=== PATIENT | female | born 1950 | race American Indian/Alaskan Native ===

== ENCOUNTER 2017-04-19 20:49 | Inpatient (IN) | payer MEDICAID, MEDICARE ==
--- NOTE | 2017-04-19 21:42 | Emergency Department Report ---
HPI - General Time Seen by Provider: 04/19/17 21:06 - HPI HPI: Room 4 The patient is a 66-year-old female presenting with a chief complaint of anemia. Patient was reportedly sent from her long term secondary to her lower H&H (5.8/17.7). The patient is a poor historian. Patient was sent by her primary physician Dr. Rosario, who requested he be called upon patient's arrival. Dr. Rosario states the long term called him reported the patient appeared lethargic. Her labs revealed a low H&H. There is no history of melena or hematemesis from the long term. Location: [see above] Duration: Unknown Quality: Lethargy, anemia Severity: Severe Modifying factors: [see above] Context: [see above] Mode of transportation: [not driving] ED Past Medical Hx - Past Medical History Hx Hypertension: Yes Hx CVA: Yes Hx Diabetes: Yes - Surgical History Additional Surgical History: left amputee. G-tube - Family History Family history: no significant - Social History Smoking Status: Unknown if ever smoked Substance Use Type: None - Medications Home Medications: Home Medications Medication Instructions Recorded Confirmed Last Taken Type Acetaminophen [Acetaminophen ER 650 mg PO Q8HR PRN 04/13/17 04/13/17 Unknown History TAB] Gabapentin [Neurontin] 100 mg PO Q8HR 04/13/17 04/13/17 Unknown History Insulin Detemir [Levemir] 8 unit SUB-Q QHS 04/13/17 04/13/17 Unknown History Insulin Lispro [HumaLOG VIAL] 0 units SQ AC 04/13/17 04/13/17 Unknown History Magnesium Hydroxide [Milk of 30 ml PO Q72HR PRN 04/13/17 04/13/17 Unknown History Magnesia] Meloxicam [Mobic] 7.5 mg PO QDAY 04/13/17 04/13/17 Unknown History Metformin HCl [Glucophage] 500 mg PO BID 04/13/17 04/13/17 Unknown History Metoprolol Xl [Metoprolol 50 mg PO QDAY 04/13/17 04/13/17 Unknown History SUCCINATE ER TAB] Mirtazapine 7.5 mg PO DAILY 04/13/17 04/13/17 Unknown History Pantoprazole [Protonix TAB] 40 mg PO QDAY 04/13/17 04/13/17 Unknown History Sennosides/Docusate Sodium [Senna 2 each PO QHS 04/13/17 04/13/17 Unknown History S Tablet] Sertraline [Zoloft] 50 mg PO QDAY 04/13/17 04/13/17 Unknown History Tamsulosin [Flomax] 0.4 mg PO QDAY 04/13/17 04/13/17 Unknown History Tuberculin Ppd [Aplisol] 0.1 ml ID Q12M 04/13/17 04/13/17 Unknown History amLODIPine [Norvasc] 10 mg PO DAILY 04/13/17 04/13/17 Unknown History cloNIDine [Clonidine] 1 each TD QWEEK 04/13/17 04/13/17 Unknown History traMADol [Ultram 50 MG tab] 50 mg PO Q8H PRN 04/13/17 04/13/17 Unknown History Ciprofloxacin HCl [Ciprofloxacin 250 mg PO BID #5 day 04/16/17 Unknown Rx TAB] oxyCODONE /ACETAMINOPHEN [Percocet 1 tab PO Q6HR PRN #30 tablet 04/16/17 Unknown Rx 5/325 mg] ED Review of Systems ROS: Stated complaint: LOW HEMOGLOBIN Other details as noted in HPI Comment: All other systems reviewed and negative Constitutional: denies: fever Eyes: denies: eye discharge, vision change Physical Exam - Physical Exam Physical Exam: GENERAL: The patient is well-developed well-nourished female lying on stretcher not appearing to be in acute distress. [] HEENT: Normocephalic. Atraumatic. Extraocular motions are intact. Patient has moist mucous membranes. NECK: Supple. Trachea midline CHEST/LUNGS: Clear to auscultation. There is no respiratory distress noted. HEART/CARDIOVASCULAR: Regular. There is no tachycardia. There is no gallop rub or murmur. ABDOMEN: Abdomen is soft, nontender. Patient has normal bowel sounds. There is no abdominal distention. SKIN: There is no rash. There is no edema. There is no diaphoresis. NEURO: The patient is awake but appears slow to respond and is a poor historian. The patient is cooperative. The patient has normal speech MUSCULOSKELETAL: There is no evidence of acute injury. RECTAL: Melena. Guaiac positive ED Course - Consultations Consultation #1: 04/19/17 23:[address] valderrama (gastroenterology)-recommends keeping patient nothing by mouth. Will plan on EGD tomorrow ED Medical Decision Making - Lab Data Result diagrams: 04/19/17 22:08 04/19/17 22:08 Laboratory Tests 04/19/17 04/19/17 04/19/17 22:08 22:08 22:08 WBC 12.9 H RBC 2.11 L Hgb 6.1 L Hct 19.3 L* MCV 92 D MCH 29 MCHC 32 RDW 14.7 Plt Count 345 Lymph % (Auto) 15.8 [place] % (Auto) 5.1 Eos % (Auto) 0.5 Baso % (Auto) 0.6 Lymph # 2.0 [place] # 0.7 Eos # 0.1 Baso # 0.1 Seg Neutrophils % 78.0 H Seg Neutrophils # 10.0 H PT 13.6 INR 1.05 APTT 21.7 L Sodium 142 Potassium 4.8 Chloride 104.2 Carbon Dioxide 23 Anion Gap 20 BUN 65 H Creatinine 4.6 H Estimated GFR 12 BUN/Creatinine Ratio 14.13 Glucose 105 H Calcium 9.0 Blood Type Antibody Screen GIOVANI Antibody Screen Crossmatch 04/19/17 22:14 WBC RBC Hgb Hct MCV MCH MCHC RDW Plt Count Lymph % (Auto) [place] % (Auto) Eos % (Auto) Baso % (Auto) Lymph # [place] # Eos # Baso # Seg Neutrophils % Seg Neutrophils # PT INR APTT Sodium Potassium Chloride Carbon Dioxide Anion Gap BUN Creatinine Estimated GFR BUN/Creatinine Ratio Glucose Calcium Blood Type O POSITIVE Antibody Screen TNR GIOVANI Antibody Screen Negative Crossmatch See Detail - EKG Data -: EKG Interpreted by Me EKG shows normal: sinus rhythm Rate: normal - EKG Data When compared to previous EKG there are: no significant change Interpretation: unchanged when compared t (04/13/2017), nonspecific ST-T wave juwan - Differential Diagnosis GI bleed, hemolysis, Critical care attestation.: If time is entered above; I have spent that time in minutes in the direct care of this critically ill patient, excluding procedure time. ED Disposition Clinical Impression: GI bleed, Anemia, Chronic renal insufficiency Disposition: OP ADMIT IP TO THIS HOSP Is pt being admited?: Yes Does the pt Need Aspirin: No Condition: Serious Time of Disposition: 23:24 (hospitalist paged)
[2017-04-19 22:38] LABS: Basophils % (Auto) 0.6 % (0.0-1.8); Eosinophils % (Auto) 0.5 % (0.0-4.3); Hemoglobin 6.1 gm/dl (10.1-14.3); Mean Corpuscular HGB Conc 32 % (30-34); Mean Corpuscular Hemoglobin 29 pg (28-32); Mean Corpuscular Volume 92 fl (79-97); Red Blood Count 2.11 M/mm3 (3.65-5.03); Red Cell Distribution Width 14.7 % (13.2-15.2); White Blood Count 12.9 K/mm3 (4.5-11.0)
[2017-04-19 22:41] LABS: Platelet Count 345 K/mm3 (140-440)
[2017-04-19 22:43] LABS: Hematocrit 19.3 % (30.3-42.9)
[2017-04-19 22:46] LABS: BUN/Creatinine Ratio 14.13; Chloride 104.2 mmol/L (98-107); Potassium 4.8 mmol/L (3.6-5.0)
[2017-04-19 22:50] LABS: INR 1.05 (0.87-1.13)
[2017-04-19 22:51] LABS: Partial Thromboplastin Time 21.7 Sec. (24.2-36.6)
[2017-04-19] MEDS ORDERED: NACL 0.9% 500 ML 500 ML IV ONE (22:53)
[2017-04-19] MEDS ORDERED: PROTONIX IV ONE (23:14)
[2017-04-19] MEDS ORDERED: DULCOLAX PR PRN (23:57)
[2017-04-19] MEDS ORDERED: ZOFRAN IV PRN (23:57)
--- NOTE | 2017-04-19 23:57 | History and Physical Report ---
History of Present Illness Date of examination: 04/19/17 History of present illness: [place] 6-year-old woman with a history of diabetes, peripheral vascular disease, chronic kidney disease, CVA with hemiparesis was sent to the emergency room from the longterm for abnormal hemoglobin. Patient is very poor historian, very difficult to obtain history. Review of system unobtainable PAST SURGICAL HISTORY: Left AKA SOCIAL HISTORY: senior living resident, no alcohol, tobacco, drugs FAMILY HISTORY: Hypertension Medications and Allergies Allergies Allergy/AdvReac Type Severity Reaction Status Date / Time guaifenesin [From Robitussin] Allergy Unknown Verified 04/19/17 21:22 Home Medications Medication Instructions Recorded Confirmed Last Taken Type Acetaminophen [Acetaminophen ER 650 mg PO Q8HR PRN 04/13/17 04/21/17 Unknown History TAB] Gabapentin [Neurontin] 100 mg PO Q8HR 04/13/17 04/21/17 Unknown History Insulin Detemir [Levemir] 8 unit SUB-Q QHS 04/13/17 04/21/17 Unknown History Insulin Lispro [HumaLOG VIAL] 0 units SQ AC 04/13/17 04/21/17 Unknown History Magnesium Hydroxide [Milk of 30 ml PO Q72HR PRN 04/13/17 04/21/17 Unknown History Magnesia] Meloxicam [Mobic] 7.5 mg PO QDAY 04/13/17 04/21/17 Unknown History Metformin HCl [Glucophage] 500 mg PO BID 04/13/17 04/21/17 Unknown History Metoprolol Xl [Metoprolol 50 mg PO QDAY 04/13/17 04/21/17 Unknown History SUCCINATE ER TAB] Mirtazapine 7.5 mg PO DAILY 04/13/17 04/21/17 Unknown History Pantoprazole [Protonix TAB] 40 mg PO QDAY 04/13/17 04/21/17 Unknown History Sennosides/Docusate Sodium [Senna 2 each PO QHS 04/13/17 04/21/17 Unknown History S Tablet] Sertraline [Zoloft] 50 mg PO QDAY 04/13/17 04/21/17 Unknown History Tamsulosin [Flomax] 0.4 mg PO QDAY 04/13/17 04/21/17 Unknown History Tuberculin Ppd [Aplisol] 0.1 ml ID Q12M 04/13/17 04/21/17 Unknown History amLODIPine [Norvasc] 10 mg PO DAILY 04/13/17 04/21/17 Unknown History cloNIDine [Clonidine] 1 each TD QWEEK 04/13/17 04/21/17 Unknown History traMADol [Ultram 50 MG tab] 50 mg PO Q8H PRN 04/13/17 04/21/17 Unknown History Ciprofloxacin HCl [Ciprofloxacin 250 mg PO BID #5 day 04/16/17 04/21/17 Unknown Rx TAB] oxyCODONE /ACETAMINOPHEN [Percocet 1 tab PO Q6HR PRN #30 tablet 04/16/17 Unknown Rx 5/325 mg] Exam - Physical Exam Narrative exam: Gen. appearance: Patient lying in bed, no apparent distress HEENT: Normocephalic, atraumatic, pupils equally round and reactive to light, extraocular movement intact, and no sclericterus,. No JVD or thyromegaly or nodule,neck supple, no carotid bruit ,mucous membranes moist, no exudate or erythema Heart: S1, S2, regular rate and rhythm Lungs: Clear to auscultation bilaterally, breathing comfortable Abdomen: Positive bowel sounds, nontender, nondistended, no organomegaly Extremity: No edema, cyanosis, clubbing Skin: No rash, nodules, warm, dry Neuro: , cranial nerves difficult to assess, speech is fluent but slow Rectal heme-positive, black stool - Constitutional Vitals: Temp Pulse Resp BP Pulse Ox 100.0 F H 88 11 L 169/88 99 04/19/17 21:29 04/19/17 22:00 04/19/17 22:00 04/19/17 22:00 04/19/17 22:00 Results - Labs CBC & Chem 7: 04/21/17 02:00 04/21/17 02:00 Labs: Abnormal lab results 04/19/17 04/19/17 04/19/17 Range/Units 22:08 22:08 22:08 WBC 12.9 H (4.5-11.0) K/mm3 RBC 2.11 L (3.65-5.03) M/mm3 Hgb 6.1 L (10.1-14.3) gm/dl Hct 19.3 L* (30.3-42.9) % Seg Neutrophils % 78.0 H (40.0-70.0) % Seg Neutrophils # 10.0 H (1.8-7.7) K/mm3 APTT 21.7 L (24.2-36.6) Sec. BUN 65 H (7-17) mg/dL Creatinine 4.6 H (0.7-1.2) mg/dL Glucose 105 H (65-100) mg/dL Crossmatch 04/19/17 Range/Units 22:14 WBC (4.5-11.0) K/mm3 RBC (3.65-5.03) M/mm3 Hgb (10.1-14.3) gm/dl Hct (30.3-42.9) % Seg Neutrophils % (40.0-70.0) % Seg Neutrophils # (1.8-7.7) K/mm3 APTT (24.2-36.6) Sec. BUN (7-17) mg/dL Creatinine (0.7-1.2) mg/dL Glucose (65-100) mg/dL Crossmatch See Detail Assessment and Plan Melena Anemia secondary to blood loss Diabetes type 2 Peripheral vascular disease Chronic kidney disease History of CVA Admits medicine Start IV fluid, IV Protonix, consult GI Check serial hemoglobin, fingersticks initiate insulin sliding scale Start DVT prophylaxis with SCD
[2017-04-20 00:35] LABS: Hematocrit 18.5 % (30.3-42.9); Hemoglobin 5.9 gm/dl (10.1-14.3)
[2017-04-20] MEDS ORDERED: APRESOLINE ONE (01:52)
[2017-04-20] MEDS ORDERED: APRESOLINE IV ONE (01:56)
[2017-04-20] MEDS ORDERED: NACL 0.9% 1000 ML 1,000 ML IV SCH (02:00)
[2017-04-20] MEDS ORDERED: NITRO-BID 2% TP ONE (04:37)
[2017-04-20] MEDS: APRESOLINE IV PRN ×3 (04:56→17:32)
[2017-04-20 07:38] LABS: Basophils % (Auto) 0.5 % (0.0-1.8); Eosinophils % (Auto) 1.4 % (0.0-4.3); Hematocrit 30.2 % (30.3-42.9); Hemoglobin 9.9 gm/dl (10.1-14.3); Mean Corpuscular HGB Conc 33 % (30-34); Mean Corpuscular Hemoglobin 29 pg (28-32); Mean Corpuscular Volume 88 fl (79-97); Platelet Count 351 K/mm3 (140-440); Red Blood Count 3.45 M/mm3 (3.65-5.03); Red Cell Distribution Width 14.9 % (13.2-15.2); White Blood Count 17.2 K/mm3 (4.5-11.0)
[2017-04-20 07:42] LABS: BUN/Creatinine Ratio 13.55; Calcium 8.8 mg/dL (8.4-10.2); Chloride 109.8 mmol/L (98-107); Potassium 4.3 mmol/L (3.6-5.0)
--- NOTE | 2017-04-20 08:17 | Admit Criteria Form ---
Admission Criteria Documentation: HEMATOLOGY GRG Clinical Indications for Admission to Inpatient Care (Place 'X' for any and all applicable criteria): Hospital admission is needed for appropriate care of the patient because of ANY ONE of the following: [ X]I. Severe anemia indicated by ANY ONE of the following (1)(2) [ ]a) Altered mental status [ ]b) Syncope [X ]c) Other findings suggesting inadequate perfusion [ ]d) Chest pain [ ]e) Exertional dyspnea [ ]f) Treatment with transfusion or volume replacement is ineffective at resolving ANY ONE of the following [A]: [ ]i) Tachycardia for age [ ]ii) Orthostatic vital sign changes as indicated by ANY ONE of the following (3) [ ]1) Fall in SBP of 20 mm Hg or more 1 to 3 minutes after patient sits or stands from recumbent position [ ]2) Fall in DBP of 10 mm Hg or more 1 to 3 minutes after patient sits or stands from recumbent position [ ]II. High-risk febrile neutropenia [B] as indicated by ANY ONE of the following(4)(5) [ ]a) Hemodynamic instability [ ]b) Hypoxemia [ ]c) Tachypnea [ ]d) Altered mental status [ ]e) New onset abdominal pain [ ]f) New onset vomiting or diarrhea [ ]g) Pneumonia [ ]h) Profound neutropenia [C] anticipated to extend for more than 7 days [ ]i) Oral or gastrointestinal mucositis that interferes with swallowing or causes severe diarrhea [ ]j) Evidence of significant focal infection (eg, cellulitis, central line or catheter infection, perirectal abscess) [ ]k) Leukemia or lymphoma induction therapy [ ]l) Bone marrow transplant patient [ ]m) Renal insufficiency (eg, GFR of less than 30 mL/min/1.73m2 (0.5 mL/sec/1.73m2) [ ]n) Severe liver dysfunction (transaminase levels greater than 5 times normal) [ ]o) Platelet count less than 50,000/mm3 (50 x109/L)(6) [ ]p) [employer] for Supportive Care in Cancer (MASCC) Risk Index score of < 21 [D] [ ]III. High-risk low platelet count as indicated by ANY ONE of the following(8) (9) [ ]a) Severe or life-threatening bleeding (eg, intracranial, major gastrointestinal, or extensive mucosal bleeding), with any reduced platelet count [ ]b) Platelet count less than 20,000/mm3 (20 x109/L) with any active bleeding [ ]c) Platelet count less than 10,000/mm3 (10 x109/L) with minor purpura or petechiae [ ]d) Platelet count less than 5000/mm3 (5 x109/L) [ ]e) Low platelet count with hemolytic anemia [ ]IV.Active hemolysis with high-risk findings, including ANY ONE of the following(2)(10)(11) [ ]a) Hematocrit less than 25% (0.25) [ ]b) Rapidly progressing anemia [ ]c) Thrombocytopenia(12)(13) [ ]d) Evidence of thrombosis or new renal insufficiency [ ]V. Bleeding disorder with high-risk features (eg, hemophilia, coagulopathy) as indicated by ANY ONE of the following (2)(14)(15) [ ]a) Central nervous system bleeding [ ]b) Retroperitoneal bleeding [ ]c) Retropharyngeal bleeding [ ]d) Gastrointestinal bleeding (22) [ ]e) Purpura [ ]f) Disseminated intravascular coagulation(23) [ ]g) Major trauma [ ]h) Deep laceration [ ]i) Head trauma [ ]j) Any trauma with internal hematoma (eg, retroperitoneal, ocular) [ ]k) Failed outpatient management [ ]. Severe over-anticoagulation or high-risk situation as indicated by ANY ONE of the following(24)(25) [ ]a) Active bleeding [ ]b) International normalized ratio 5 or greater and rapid reversal needed [ ]c) International normalized ratio 9 or greater [ ]VII. Congenital immunodeficiency states with severe morbidity as indicated by ANY ONE of the following(26)(27) [ ]a) Severe infection [ ]b) Bone marrow transplant needed (Also use Medical Oncology GRG) [ ]VIII. Hyperviscosity syndrome with high-risk indicators indicated by ANY ONE of the following (2)(28)(29)(30)(31) [ ]a) Polycythemia vera with hematocrit greater than 60% (0.60) [ ]b) Elevated platelet count associated with thrombosis, bleeding, or life-threatening organ dysfunction [ ]c) Severe signs or symptoms from elevated red cell, white cell, or protein levels, including ANY ONE of the following: [ ]i) Mental status change [ ]ii) Dyspnea [ ]iii) Chest x-ray infiltrate [ ]iv) Visual changes [ ]v) Retinal abnormalities [ ]vi) Neuromuscular symptoms [ ]vii) Suspected ischemia or thrombosis [ ]viii) Bleeding [ ]IX. Methemoglobinemia greater than 15% (0.15) or severe symptoms persist after emergency treatment (32)(33) [ ]X. Spleen trauma with blood loss or other need for acute (medical) treatment (34) [ ]XI. Hematology condition and ALL of the following: [ ]a) Symptom or finding for which emergency and observation care have failed or are not considered appropriate (Also use General Criteria: Observation Care as appropriate) [ ]b) Presence of ANY ONE of the following: [ ]i) A General Admission Criteria [ ]ii) A Pediatric General Admission Criteria The original [facility] [employer] content created by [facility] has been revised. The portions of the content which have been revised are identified through the use of italic text or in bold, and [facility] has neither reviewed nor approved the modified material. All other unmodified content is copyright [facility]. Please see references footnoted in the original [facility] edition 2016 Admission Criteria Met: Yes
--- NOTE | 2017-04-20 08:48 | Progress Note ---
Assessment and Plan Assessment and plan: Patient is a 66-year-old woman with a history of diabetes, peripheral vascular disease, chronic kidney disease, CVA with hemiparesis was [facility] from the [facility] for abnormal hemoglobin. Patient is very poor historian, very difficult to obtain history. Review of system unobtainable * Symptomatic Anemia * GI bleed with melana * Hypertensive urgency, ?Rebound * Diabetes type 2 * PVD * Acute Kidney injury on chronic kidney disease, possible secondary to ATN. POA * Hx of CVA plan: * Supportive care * Decrease IVF to 75cc/hr * Good response with transfusion of PRBC. monitor H.H. Gi consulted. * Hematology consult noted. * Nephrology consult, check renal us, urinalysis. avoid nephrotoxic medications , repeat renal stuides in am * Blood pressure control will start patient on clonidine patch and hydralazine IV when necessary once okay with GI, patient can start By Mouth Medications. * cont serial hemoglobin, fingersticks initiate insulin sliding scale * DVT prophylaxis with SC * Based on findings on his H&H remains stable patient can be discharged in a.m. * Plan of care discussed with the patient in detail History Interval history: Patient seen and examined this morning, in no acute distress. Denies any chest pain, nausea vomiting or diarrhea. no adverse events reported overnight. Hospitalist Physical - Physical exam Narrative exam: VITAL SIGNS: Reviewed. GENERAL: The patient appeared well nourished and normally developed. Vital signs as documented. HEAD: No signs of head trauma. EYES: Pupils are equal. Extraocular motions intact. EARS: Hearing grossly intact. MOUTH: Oropharynx is normal. NECK: No adenopathy, no JVD. CHEST: Chest with clear breath sounds bilaterally. No wheezes, rales, or rhonchi. CARDIAC: Regular rate and rhythm. S1 and S2, without murmurs, gallops, or rubs. VASCULAR: No Edema. Peripheral pulses normal and equal in all extremities. ABDOMEN: Soft, without detectable tenderness. No sign of distention. No rebound or guarding, and no masses palpated. Bowel Sounds normal. MUSCULOSKELETAL: Good range of motion of all major joints. Extremities without clubbing, cyanosis or edema. NEUROLOGIC EXAM: Alert and oriented x 3. No focal sensory or strength deficits. Speech normal. Follows commands. PSYCHIATRIC: Mood normal. SKIN: No rash or lesions. - Constitutional Vitals: Temp Pulse Resp BP Pulse Ox 98.2 F 97 H 18 174/84 100 04/20/17 07:51 04/20/17 07:51 04/20/17 07:51 04/20/17 07:51 04/20/17 07:51 Results - Labs CBC & Chem 7: 04/20/17 06:37 04/20/17 06:37 Labs: Laboratory Last Values WBC 17.2 K/mm3 (4.5-11.0) H 04/20/17 06:37 RBC 3.45 M/mm3 (3.65-5.03) L 04/20/17 06:37 Hgb 9.9 gm/dl (10.1-14.3) L D 04/20/17 06:37 Hct 30.2 % (30.3-42.9) L D 04/20/17 06:37 MCV 88 fl (79-97) D 04/20/17 06:37 MCH 29 pg (28-32) 04/20/17 06:37 MCHC 33 % (30-34) 04/20/17 06:37 RDW 14.9 % (13.2-15.2) 04/20/17 06:37 Plt Count 351 K/mm3 (140-440) 04/20/17 06:37 Lymph % (Auto) 13.2 % (13.4-35.0) L 04/20/17 06:37 [place] % (Auto) 6.5 % (0.0-7.3) 04/20/17 06:37 Eos % (Auto) 1.4 % (0.0-4.3) 04/20/17 06:37 Baso % (Auto) 0.5 % (0.0-1.8) 04/20/17 06:37 Lymph # 2.3 K/mm3 (1.2-5.4) 04/20/17 06:37 [place] # 1.1 K/mm3 (0.0-0.8) H 04/20/17 06:37 Eos # 0.2 K/mm3 (0.0-0.4) 04/20/17 06:37 Baso # 0.1 K/mm3 (0.0-0.1) 04/20/17 06:37 Seg Neutrophils % 78.4 % (40.0-70.0) H 04/20/17 06:37 Seg Neutrophils # 13.4 K/mm3 (1.8-7.7) H 04/20/17 06:37 PT 13.6 Sec. (12.2-14.9) 04/19/17 22:08 INR 1.05 (0.87-1.13) 04/19/17 22:08 APTT 21.7 Sec. (24.2-36.6) L 04/19/17 22:08 Sodium 146 mmol/L (137-145) H 04/20/17 06:37 Potassium 4.3 mmol/L (3.6-5.0) 04/20/17 06:37 Chloride 109.8 mmol/L (98-107) H 04/20/17 06:37 Carbon Dioxide 22 mmol/L (22-30) 04/20/17 06:37 Anion Gap 19 mmol/L 04/20/17 06:37 BUN 61 mg/dL (7-17) H 04/20/17 06:37 Creatinine 4.5 mg/dL (0.7-1.2) H 04/20/17 06:37 Estimated GFR 12 ml/min 04/20/17 06:37 BUN/Creatinine Ratio 13.55 % 04/20/17 06:37 Glucose 105 mg/dL (65-100) H 04/20/17 06:37 Calcium 8.8 mg/dL (8.4-10.2) 04/20/17 06:37 Blood Type O POSITIVE 04/19/17 22:14 Antibody Screen TNR 04/19/17 22:14 GIOVANI Antibody Screen Negative 04/19/17 22:14 Crossmatch See Detail 04/19/17 22:14
--- NOTE | 2017-04-20 09:22 | Gastroenterology Consultation ---
History of Present Illness - Reason for Consult Consult date: 04/20/17 GI bleed Requesting physician: QUINCY BRYAN - History of Present Illness Patient is a 66 y/o female, who is a [place] [facility] resident, who was brought to the ER yesterday for abnormal HGB. PMH significant for DM, PVD, CKD, HTN, and CVA with hemiparesis. She is a poor historian. Speech is slow but clear. She was resting in bed this morning, without acute distress. She admits to epigastric pain, but denies CP, SOB, dizziness, N/V, hematemesis, dysphagia, hematochezia or wt loss. BM last night x 1 with melena per nursing and stool hemoccult positive in ER. Patient reports no previous EGD or Colonoscopy. Noted to be on Meloxicam at home. Past History Past Medical History: diabetes, hypertension, PVD, stroke (L sided hemiparesis) Past Surgical History: cholecystectomy, Other (Left AKA) Social history: other ([place] [facility] resident). denies: smoking (former smoker) , alcohol abuse Medications and Allergies Allergies Allergy/AdvReac Type Severity Reaction Status Date / Time guaifenesin [From Robitussin] Allergy Unknown Verified 04/19/17 21:22 Home Medications Medication Instructions Recorded Confirmed Last Taken Type Acetaminophen [Acetaminophen ER 650 mg PO Q8HR PRN 04/13/17 04/13/17 Unknown History TAB] Gabapentin [Neurontin] 100 mg PO Q8HR 04/13/17 04/13/17 Unknown History Insulin Detemir [Levemir] 8 unit SUB-Q QHS 04/13/17 04/13/17 Unknown History Insulin Lispro [HumaLOG VIAL] 0 units SQ AC 04/13/17 04/13/17 Unknown History Magnesium Hydroxide [Milk of 30 ml PO Q72HR PRN 04/13/17 04/13/17 Unknown History Magnesia] Meloxicam [Mobic] 7.5 mg PO QDAY 04/13/17 04/13/17 Unknown History Metformin HCl [Glucophage] 500 mg PO BID 04/13/17 04/13/17 Unknown History Metoprolol Xl [Metoprolol 50 mg PO QDAY 04/13/17 04/13/17 Unknown History SUCCINATE ER TAB] Mirtazapine 7.5 mg PO DAILY 04/13/17 04/13/17 Unknown History Pantoprazole [Protonix TAB] 40 mg PO QDAY 04/13/17 04/13/17 Unknown History Sennosides/Docusate Sodium [Senna 2 each PO QHS 04/13/17 04/13/17 Unknown History S Tablet] Sertraline [Zoloft] 50 mg PO QDAY 04/13/17 04/13/17 Unknown History Tamsulosin [Flomax] 0.4 mg PO QDAY 04/13/17 04/13/17 Unknown History Tuberculin Ppd [Aplisol] 0.1 ml ID Q12M 04/13/17 04/13/17 Unknown History amLODIPine [Norvasc] 10 mg PO DAILY 04/13/17 04/13/17 Unknown History cloNIDine [Clonidine] 1 each TD QWEEK 04/13/17 04/13/17 Unknown History traMADol [Ultram 50 MG tab] 50 mg PO Q8H PRN 04/13/17 04/13/17 Unknown History Ciprofloxacin HCl [Ciprofloxacin 250 mg PO BID #5 day 04/16/17 Unknown Rx TAB] oxyCODONE /ACETAMINOPHEN [Percocet 1 tab PO Q6HR PRN #30 tablet 04/16/17 Unknown Rx 5/325 mg] Active Meds: Active Medications Bisacodyl (Dulcolax) 10 mg DE QDAY PRN PRN Reason: Constipation unrelieved by MOM Clonidine HCl (Catapres-Tts Patch) 0.1 mg TD QWEEK REYES Hydralazine HCl (Apresoline) 10 mg IV Q4HR PRN PRN Reason: Hypertension Last Admin: 04/20/17 04:56 Dose: 10 mg Sodium Chloride (Nacl 0.9% 1000 Ml) 1,000 mls @ 75 mls/hr IV DIRECT REYES Ondansetron HCl (Zofran) 4 mg IV Q8H PRN PRN Reason: N/V unrelieved by Reglan Pantoprazole Sodium (Protonix) 40 mg IV QDAY REYES Review of Systems - Review of Systems All systems: negative Gastrointestinal: abdominal pain (epigastric), melena Exam - Constitutional Vital Signs: Temp Pulse Resp BP Pulse Ox 98.2 F 97 H 18 174/84 100 04/20/17 07:51 04/20/17 07:51 04/20/17 07:51 04/20/17 07:51 04/20/17 07:51 General appearance: no acute distress - EENT Eyes: PERRL, EOM intact ENT: hearing intact - Neck Neck: supple - Respiratory Respiratory: bilateral: CTA - Cardiovascular Rhythm: regular Heart Sounds: Present: S1 & S2 Extremities: No edema Extremity abnormal: other (Left sided hemiparesis, Left AKA) - Gastrointestinal General gastrointestinal: Present: soft, tender (epigastric), non-distended, normal bowel sounds - Integumentary Integumentary: Present: warm, dry - Neurologic Neurological: oriented to person, oriented to place, left side weakness, other ( speech slow) - Psychiatric Psychiatric: appropriate mood/affect, cooperative - Labs CBC & Chem 7: 04/20/17 06:37 04/20/17 06:37 Lab Results: Laboratory Results - last 24 hr 04/20/17 04/20/17 04/20/17 00:12 06:37 06:37 WBC 17.2 H RBC 3.45 L Hgb 5.9 L* 9.9 L D Hct 18.5 L* 30.2 L D MCV 88 D MCH 29 MCHC 33 RDW 14.9 Plt Count 351 Lymph % (Auto) 13.2 L [place] % (Auto) 6.5 Eos % (Auto) 1.4 Baso % (Auto) 0.5 Lymph # 2.3 [place] # 1.1 H Eos # 0.2 Baso # 0.1 Seg Neutrophils % 78.4 H Seg Neutrophils # 13.4 H Sodium 146 H Potassium 4.3 Chloride 109.8 H Carbon Dioxide 22 Anion Gap 19 BUN 61 H Creatinine 4.5 H Estimated GFR 12 BUN/Creatinine Ratio 13.55 Glucose 105 H Calcium 8.8 Assessment and Plan 1. GI bleed 2. melena -HBG increased appropriately with transfusion from 6.1 to now 9.9 -continue to monitor H&H -hold any blood thinning medications -continue PPI -keep NPO -will schedule EGD for today -will follow
[2017-04-20] MEDS: PROTONIX IV SCH (09:35)
[2017-04-20] MEDS ORDERED: CATAPRES-TTS PATCH TD SCH (10:00)
--- NOTE | 2017-04-20 11:09 | Ultrasound Report ---
ULTRASOUND RENAL INDICATION: KISHA. COMPARISON: 04/14/2017. FINDINGS: Renal sonography again demonstrates mild increased renal cortical echogenicity. Grossly preserved contours. No hydronephrosis. RIGHT KIDNEY measures 11.6 x 5.5 x 5.7 cm with cortical thickness of 2.3 cm. A 2.2 x 1.7 cm interpolar cyst again noted. LEFT KIDNEY estimated at 9 x 6.2 x 5.1 cm with cortical thickness of 1.8 cm. URINARY BLADDER grossly within normal limits. CONCLUSION: Mild underlying medical renal disease and right renal cyst again noted. Indication for this short-term repeat exam uncertain at this time. Please correlate. Thank you for the opportunity to participate in this patient's care.
[2017-04-20] MEDS ORDERED: XYLOCAINE MPF 2% ONE (11:30)
[2017-04-20] MEDS ORDERED: WATER FOR IRRIG STERILE IR ONE (11:36)
[2017-04-20] MEDS ORDERED: NACL 0.9% 1000 ML 1,000 ML ONE (11:36)
--- NOTE | 2017-04-20 11:54 | Anesthesia Consultation ---
Anesthesia Consult and Med Hx Date of service: 04/20/17 - Airway Anesthetic Teeth Evaluation: Poor (missing teeth on the bottom), Dentures (upper ) ROM Head & Neck: Adequate Mental/Hyoid Distance: Adequate Mallampati Class: Class II Intubation Access Assessment: Probably Good - Pre-Operative Health Status ASA Pre-Surgery Classification: ASA4 Proposed Anesthetic Plan: MAC - Pulmonary Hx Smoking: Yes Hx Asthma: No COPD: No Hx Pneumonia: No - Cardiovascular System Hx Hypertension: Yes - Central Nervous System CVA: Yes (quadraparesis) Hx Psychiatric Problems: Yes (oriented x 1, dementia) - Gastrointestinal Hx Gastroesophageal Reflux Disease: Yes (PEG tube in situ, GI bleed) - Endocrine Hx Renal Disease: Yes (kidney insufficiency) Hx End Stage Renal Disease: No - Hematic Hx Anemia: Yes (recieved 2 units of blood) - Other Systems Hx Cancer: No
--- NOTE | 2017-04-20 11:56 | Anesthesia Day of Surgery ---
Anesthesia Day of Surgery - Day of Surgery Patient Examined: Yes Patient H&P Reviewed: Yes Patient is NPO: Yes
[2017-04-20] MEDS ORDERED: DIPRIVAN 10 MG/ML IV ONE (12:21)
--- NOTE | 2017-04-20 12:42 | Operative Report ---
Operative Report Operative Report: Date of procedure: 04/20/2017 Procedure: Esophagogastroduodenoscopy Preprocedure diagnosis: History of melena Post procedure diagnosis: Normal-appearing upper digestive tract Endoscopist: Dr. Bateman Anesthesia: Monitored anesthesia care per anesthesia department Medications: Propofol per anesthesia Estimated blood loss: 0 After careful discussion of the nature and purpose of the procedure as well as details the technique risks benefits and alternatives consent was obtained. The patient was placed in the left lateral decubitus position and medicated per anesthesia. The tip of the Savision EQ 570 video scope was passed per orum under direct vision into the esophagus and advanced into the stomach and descending duodenum. The descending duodenum the duodenal bulb and pylorus were symmetrical and normal. The scope was withdrawn into the stomach and the stomach then gently insufflated with air. The antrum was normal. The stomach was further insufflated and the scope was then retroflexed and partially withdrawn. The cardia, fundus, and body of the stomach were within normal limits and easily distensible.The scope was then withdrawn in the forward position. The esophagogastric junction was at 38 cm. The esophageal body was normal throughout. The procedure was was well tolerated and the patient was observed in recovery. Impressions: Normal-appearing upper digestive tract. Plan: Further outpatient evaluation as the patient does not appear to be actively bleeding. Consideration of colonoscopy and/or pill camera study. Electronically signed: Doc Bateman MD
[2017-04-20] MEDS: NACL 0.9% 1000 ML 1,000 ML IV SCH (14:26)
--- NOTE | 2017-04-20 15:18 | Post Anesthesia Evaluation ---
- Post Anesthesia Evaluation Patient Participated: Yes Airway Patent: Yes Stable Respiratory Function: Yes Nausea/Vomiting: No Temp > 96.8F: Yes Pain Manageable: Yes Adequeate Hydration: Yes Anesthesia Complications: No Block Receding Appropriately: Not Applicable Patient on Ventilator: No
--- NOTE | 2017-04-20 16:40 | Consultation ---
History of Present Illness - Reason for Consult Consult date: 04/20/17 - History of Present Illness pt was seen and examined. 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 denies: smoking (former smoker) , alcohol abuse Medications and Allergies Allergies Allergy/AdvReac Type Severity Reaction Status Date / Time guaifenesin [From Robitussin] Allergy Unknown Verified 04/19/17 21:22 Home Medications Medication Instructions Recorded Confirmed Last Taken Type Acetaminophen [Acetaminophen ER 650 mg PO Q8HR PRN 04/13/17 04/13/17 Unknown History TAB] Gabapentin [Neurontin] 100 mg PO Q8HR 04/13/17 04/13/17 Unknown History Insulin Detemir [Levemir] 8 unit SUB-Q QHS 04/13/17 04/13/17 Unknown History Insulin Lispro [HumaLOG VIAL] 0 units SQ AC 04/13/17 04/13/17 Unknown History Magnesium Hydroxide [Milk of 30 ml PO Q72HR PRN 04/13/17 04/13/17 Unknown History Magnesia] Meloxicam [Mobic] 7.5 mg PO QDAY 04/13/17 04/13/17 Unknown History Metformin HCl [Glucophage] 500 mg PO BID 04/13/17 04/13/17 Unknown History Metoprolol Xl [Metoprolol 50 mg PO QDAY 04/13/17 04/13/17 Unknown History SUCCINATE ER TAB] Mirtazapine 7.5 mg PO DAILY 04/13/17 04/13/17 Unknown History Pantoprazole [Protonix TAB] 40 mg PO QDAY 04/13/17 04/13/17 Unknown History Sennosides/Docusate Sodium [Senna 2 each PO QHS 04/13/17 04/13/17 Unknown History S Tablet] Sertraline [Zoloft] 50 mg PO QDAY 04/13/17 04/13/17 Unknown History Tamsulosin [Flomax] 0.4 mg PO QDAY 04/13/17 04/13/17 Unknown History Tuberculin Ppd [Aplisol] 0.1 ml ID Q12M 04/13/17 04/13/17 Unknown History amLODIPine [Norvasc] 10 mg PO DAILY 04/13/17 04/13/17 Unknown History cloNIDine [Clonidine] 1 each TD QWEEK 04/13/17 04/13/17 Unknown History traMADol [Ultram 50 MG tab] 50 mg PO Q8H PRN 04/13/17 04/13/17 Unknown History Ciprofloxacin HCl [Ciprofloxacin 250 mg PO BID #5 day 04/16/17 Unknown Rx TAB] oxyCODONE /ACETAMINOPHEN [Percocet 1 tab PO Q6HR PRN #30 tablet 04/16/17 Unknown Rx 5/325 mg] Active Meds: Active Medications Bisacodyl (Dulcolax) [address] QDAY PRN PRN Reason: Constipation unrelieved by MOM Clonidine HCl (Catapres-Tts Patch) 0.1 mg TD We [facility] Last Admin: 04/20/17 14:27 Dose: 0.1 mg Hydralazine HCl (Apresoline) 10 mg IV Q4HR PRN PRN Reason: Hypertension Last Admin: 04/20/17 09:53 Dose: 10 mg Sodium Chloride (Nacl 0.9% 1000 Ml) 1,000 mls @ 75 mls/hr IV DIRECT [facility] Last Admin: 04/20/17 14:26 Dose: 75 mls/hr Ondansetron HCl (Zofran) 4 mg IV Q8H PRN PRN Reason: N/V unrelieved by Reglan Pantoprazole Sodium (Protonix) 40 mg IV QDAY [facility] Last Admin: 04/20/17 09:35 Dose: 40 mg Exam - Constitutional Vitals: Temp Pulse Resp BP Pulse Ox 98.5 F 87 12 136/65 97 04/20/17 12:35 04/20/17 13:00 04/20/17 13:00 04/20/17 13:00 04/20/17 13:00 Results - Labs CBC & Chem 7: 04/20/17 06:37 04/20/17 06:37 Labs: Abnormal lab results 04/20/17 04/20/17 04/20/17 Range/Units 00:12 06:37 06:37 WBC 17.2 H (4.5-11.0) K/mm3 RBC 3.45 L (3.65-5.03) M/mm3 Hgb 5.9 L* 9.9 L D (10.1-14.3) gm/dl Hct 18.5 L* 30.2 L D (30.3-42.9) % Lymph % (Auto) 13.2 L (13.4-35.0) % [place] # 1.1 H (0.0-0.8) K/mm3 Seg Neutrophils % 78.4 H (40.0-70.0) % Seg Neutrophils # 13.4 H (1.8-7.7) K/mm3 Sodium 146 H (137-145) mmol/L Chloride 109.8 H (98-107) mmol/L BUN 61 H (7-17) mg/dL Creatinine 4.5 H (0.7-1.2) mg/dL Glucose 105 H (65-100) mg/dL POC Glucose (70-105) 04/20/17 Range/Units 12:04 WBC (4.5-11.0) K/mm3 RBC (3.65-5.03) M/mm3 Hgb (10.1-14.3) gm/dl Hct (30.3-42.9) % Lymph % (Auto) (13.4-35.0) % [place] # (0.0-0.8) K/mm3 Seg Neutrophils % (40.0-70.0) % Seg Neutrophils # (1.8-7.7) K/mm3 Sodium (137-145) mmol/L Chloride (98-107) mmol/L BUN (7-17) mg/dL Creatinine (0.7-1.2) mg/dL Glucose (65-100) mg/dL POC Glucose 153 H (70-105)
--- NOTE | 2017-04-20 22:28 | Consultation ---
History of Present Illness - Reason for Consult Consult date: 04/20/17 anemia Requesting physician: BURKE NEWELL - History of Present Illness Thank you for this consult. patient seen/examined, records/labs/notes reviewed. no family around at this time. Kindly asked to see for the reason above.Patient was just d/c from here about 72 hrs ago for the same reasons for which she was admitted this time. I have spoken to the ER doc and asked that she be transfused with PRBC. The etiology of her anemia will be worked up. Gi scope upper, and no sign of active bleeding.Will work her up for possible plasma cell dyscrasia. Past History Past Medical History: diabetes, hypertension, PVD, stroke (L sided hemiparesis) Past Surgical History: cholecystectomy, Other (Left AKA) Social history: other ([facility] resident). denies: smoking (former smoker) , alcohol abuse Medications and Allergies Allergies Allergy/AdvReac Type Severity Reaction Status Date / Time guaifenesin [From Robitussin] Allergy Unknown Verified 04/19/17 21:22 Home Medications Medication Instructions Recorded Confirmed Last Taken Type Acetaminophen [Acetaminophen ER 650 mg PO Q8HR PRN 04/13/17 04/13/17 Unknown History TAB] Gabapentin [Neurontin] 100 mg PO Q8HR 04/13/17 04/13/17 Unknown History Insulin Detemir [Levemir] 8 unit SUB-Q QHS 04/13/17 04/13/17 Unknown History Insulin Lispro [HumaLOG VIAL] 0 units SQ AC 04/13/17 04/13/17 Unknown History Magnesium Hydroxide [Milk of 30 ml PO Q72HR PRN 04/13/17 04/13/17 Unknown History Magnesia] Meloxicam [Mobic] 7.5 mg PO QDAY 04/13/17 04/13/17 Unknown History Metformin HCl [Glucophage] 500 mg PO BID 04/13/17 04/13/17 Unknown History Metoprolol Xl [Metoprolol 50 mg PO QDAY 04/13/17 04/13/17 Unknown History SUCCINATE ER TAB] Mirtazapine 7.5 mg PO DAILY 04/13/17 04/13/17 Unknown History Pantoprazole [Protonix TAB] 40 mg PO QDAY 04/13/17 04/13/17 Unknown History Sennosides/Docusate Sodium [Senna 2 each PO QHS 04/13/17 04/13/17 Unknown History S Tablet] Sertraline [Zoloft] 50 mg PO QDAY 04/13/17 04/13/17 Unknown History Tamsulosin [Flomax] 0.4 mg PO QDAY 04/13/17 04/13/17 Unknown History Tuberculin Ppd [Aplisol] 0.1 ml ID Q12M 04/13/17 04/13/17 Unknown History amLODIPine [Norvasc] 10 mg PO DAILY 04/13/17 04/13/17 Unknown History cloNIDine [Clonidine] 1 each TD QWEEK 04/13/17 04/13/17 Unknown History traMADol [Ultram 50 MG tab] 50 mg PO Q8H PRN 04/13/17 04/13/17 Unknown History Ciprofloxacin HCl [Ciprofloxacin 250 mg PO BID #5 day 04/16/17 Unknown Rx TAB] oxyCODONE /ACETAMINOPHEN [Percocet 1 tab PO Q6HR PRN #30 tablet 04/16/17 Unknown Rx 5/325 mg] Active Meds: Active Medications Bisacodyl (Dulcolax) 10 mg SD QDAY PRN PRN Reason: Constipation unrelieved by MOM Clonidine HCl (Catapres-Tts Patch) 0.1 mg TD We [facility] Last Admin: 04/20/17 14:27 Dose: 0.1 mg Hydralazine HCl (Apresoline) 10 mg IV Q4HR PRN PRN Reason: Hypertension Last Admin: 04/20/17 17:32 Dose: 10 mg Sodium Chloride (Nacl 0.9% 1000 Ml) 1,000 mls @ 75 mls/hr IV DIRECT REYES Last Admin: 04/20/17 14:26 Dose: 75 mls/hr Ondansetron HCl (Zofran) 4 mg IV Q8H PRN PRN Reason: N/V unrelieved by Reglan Pantoprazole Sodium (Protonix) 40 mg IV QDAY REYES Last Admin: 04/20/17 09:35 Dose: 40 mg Review of Systems Constitutional: fatigue, weakness Breasts: deferred Exam - Constitutional Vitals: Temp Pulse Resp BP Pulse Ox 98.4 F 104 H 18 172/79 97 04/20/17 20:00 04/20/17 20:00 04/20/17 20:00 04/20/17 20:00 04/20/17 20:40 General appearance: Present: mild distress - EENT Eyes: Present: PERRL ENT: hearing intact, clear oral mucosa - Neck Neck: Present: supple, normal ROM - Respiratory Respiratory effort: normal Respiratory: bilateral: CTA - Cardiovascular Heart Sounds: Present: S1 & S2. Absent: rub, click - Extremities Extremities: pulses symmetrical, No edema Peripheral Pulses: within normal limits - Abdominal General gastrointestinal: Present: soft, non-tender, non-distended, normal bowel sounds Female genitourinary: Present: deferred - Rectal Rectal Exam: deferred - Integumentary Integumentary: Present: clear, warm, dry - Musculoskeletal Musculoskeletal: gait normal, strength equal bilaterally - Psychiatric Psychiatric: appropriate mood/affect - Neurologic Neurologic: CNII-XII intact, moves all extremities Results - Labs CBC & Chem 7: 04/20/17 06:37 04/20/17 06:37 Labs: Abnormal lab results 04/20/17 04/20/17 04/20/17 Range/Units 00:12 06:37 06:37 WBC 17.2 H (4.5-11.0) K/mm3 RBC 3.45 L (3.65-5.03) M/mm3 Hgb 5.9 L* 9.9 L D (10.1-14.3) gm/dl Hct 18.5 L* 30.2 L D (30.3-42.9) % Lymph % (Auto) 13.2 L (13.4-35.0) % [place] # 1.1 H (0.0-0.8) K/mm3 Seg Neutrophils % 78.4 H (40.0-70.0) % Seg Neutrophils # 13.4 H (1.8-7.7) K/mm3 Sodium 146 H (137-145) mmol/L Chloride 109.8 H (98-107) mmol/L BUN 61 H (7-17) mg/dL Creatinine 4.5 H (0.7-1.2) mg/dL Glucose 105 H (65-100) mg/dL POC Glucose (70-105) 04/20/17 04/20/17 04/20/17 Range/Units 09:19 12:04 14:14 WBC (4.5-11.0) K/mm3 RBC (3.65-5.03) M/mm3 Hgb (10.1-14.3) gm/dl Hct (30.3-42.9) % Lymph % (Auto) (13.4-35.0) % [place] # (0.0-0.8) K/mm3 Seg Neutrophils % (40.0-70.0) % Seg Neutrophils # (1.8-7.7) K/mm3 Sodium (137-145) mmol/L Chloride (98-107) mmol/L BUN (7-17) mg/dL Creatinine (0.7-1.2) mg/dL Glucose (65-100) mg/dL POC Glucose 130 H 153 H 134 H (70-105) 04/20/17 Range/Units 16:46 WBC (4.5-11.0) K/mm3 RBC (3.65-5.03) M/mm3 Hgb (10.1-14.3) gm/dl Hct (30.3-42.9) % Lymph % (Auto) (13.4-35.0) % [place] # (0.0-0.8) K/mm3 Seg Neutrophils % (40.0-70.0) % Seg Neutrophils # (1.8-7.7) K/mm3 Sodium (137-145) mmol/L Chloride (98-107) mmol/L BUN (7-17) mg/dL Creatinine (0.7-1.2) mg/dL Glucose (65-100) mg/dL POC Glucose 132 H (70-105) Assessment and Plan - Patient Problems (1) Anemia Current Visit: Yes Status: Acute Qualifiers: Anemia type: A Iron deficiency anemia type: I Vitamin B12 deficiency anemia type: V Folate deficiency anemia type: F Bone marrow failure anemia type: B Hemolytic anemia type: H Other causes of anemia: O Chronic kidney disease stage: C Plan to address problem: stable post transfusion, see further w/up orders. (2) Chronic renal insufficiency Current Visit: Yes Status: Acute Qualifiers: Chronic kidney disease stage: C Plan to address problem: follow renal service. (3) CVA (cerebral vascular accident) Current Visit: No Status: Acute Qualifiers: CVA mechanism: unspecified Precerebral and cerebral artery: P Laterality of affected vessel: L Qualified Code(s): I63.9 - Cerebral infarction, unspecified Plan to address problem: supportive care
[2017-04-20 23:45] LABS: Basophils % (Auto) 0.5 % (0.0-1.8); Eosinophils % (Auto) 1.5 % (0.0-4.3); Hematocrit 28.1 % (30.3-42.9); Hemoglobin 9.2 gm/dl (10.1-14.3); Mean Corpuscular HGB Conc 33 % (30-34); Mean Corpuscular Hemoglobin 29 pg (28-32); Mean Corpuscular Volume 89 fl (79-97); Platelet Count 320 K/mm3 (140-440); Red Blood Count 3.17 M/mm3 (3.65-5.03); Red Cell Distribution Width 14.9 % (13.2-15.2); White Blood Count 12.2 K/mm3 (4.5-11.0)
[2017-04-21 00:12] LABS: Iron 51 ug/dL (37-170); Total Iron Binding Capacity 199 mcg/dL (250-450)
[2017-04-21 00:17] LABS: Bilirubin,Direct < 0.2 mg/dL (0-0.2)
[2017-04-21] MEDS: PERCOCET 5/325 PO PRN ×2 (00:39→22:30)
[2017-04-21 00:54] LABS: Erythrocyte Sedimentation Rate 55 mm/Hr (0-20)
[2017-04-21 03:14] LABS: Hematocrit 29.6 % (30.3-42.9); Hemoglobin 9.7 gm/dl (10.1-14.3); Mean Corpuscular HGB Conc 33 % (30-34); Mean Corpuscular Hemoglobin 29 pg (28-32); Mean Corpuscular Volume 88 fl (79-97); Platelet Count 335 K/mm3 (140-440); Red Blood Count 3.37 M/mm3 (3.65-5.03); Red Cell Distribution Width 15.6 % (13.2-15.2); White Blood Count 12.8 K/mm3 (4.5-11.0)
[2017-04-21 03:25] LABS: BUN/Creatinine Ratio 13.25; Chloride 106.4 mmol/L (98-107); Potassium 4.5 mmol/L (3.6-5.0)
--- NOTE | 2017-04-21 05:16 | Consultation ---
RENAL CONSULTATION REASON FOR CONSULTATION: Acute renal failure. HISTORY OF PRESENT ILLNESS: This 66-year-old Afro-[place] female with history of type 2 diabetes, hypertension, CVA, chronic kidney disease, peripheral vascular disease, was brought from the snf for low hemoglobin. The patient's chart was reviewed, unable to obtain much information from the patient. She was noted to have hemoglobin of 5.9, hematocrit of 18.5, BUN of 61, creatinine of 4.5. GI consult reviewed. The patient underwent EGD by . No active bleeding was noted. PAST MEDICAL HISTORY: Diabetes, hypertension, CVA, PVD, chronic kidney disease, status post left AKA. PERSONAL HISTORY: No history of smoking, alcohol, or drug abuse. FAMILY HISTORY: Not available. ALLERGIES: GUANFACINE. CURRENT MEDICATIONS: Clonidine patch 0.1, p.r.n. hydralazine, Protonix 40 mg once a day. REVIEW OF SYSTEMS: Unable to obtain. The patient is a poor historian. PHYSICAL EXAMINATION: GENERAL: The patient is sleeping, but arousable, not participating in conversation. VITAL SIGNS: Blood pressure 136/65, pulse 87, afebrile. HEENT: Eyes: Pupils reactive. Conjunctivae pale. Oral mucosa, tongue and lips are dry. NECK: No JVD. No thyroid enlargement. LUNGS: Clear. HEART: S1, S2 regular. A 2/6 systolic murmur along the left sternal border. ABDOMEN: Soft, bowel sounds present. Nontender. EXTREMITIES: No significant edema. Left above knee amputation. LABORATORY DATA: Hemoglobin 5.9, hematocrit 18.5, WBC 17.2. After transfusion, hemoglobin 9.9, hematocrit 30.2, platelets 351. Sodium 146, potassium 4.3, chloride 109, CO2 22, BUN 61, creatinine 4.5, glucose 105, calcium 8.8. ASSESSMENT AND PLAN: 1. Severe anemia, status post packed red blood cell transfusion. 2. [id number] kidney disease with prerenal azotemia or chronic kidney disease with chronic kidney disease, stage 5. 3. History of cerebrovascular accident. 4. Peripheral vascular disease, status post left above knee amputation. 5. Type 2 diabetes. 6. Hypertension. Continue present hydration. Check urine studies. Check renal ultrasound if not done recently. Adjust medications per renal function. Thank you for the consultation. JOB# [id number] FREDY/GERRY
[2017-04-21] MEDS: APRESOLINE IV PRN ×2 (06:00→11:18)
[2017-04-21] MEDS ORDERED: NORMODYNE IV PRN ×2 (08:39→14:33)
--- NOTE | 2017-04-21 09:44 | Progress Note ---
Assessment and Plan - Patient Problems (1) Acute kidney injury superimposed on CKD Current Visit: Yes Status: Acute Plan to address problem: BUN 57/ Scr 4.3 today. Continue present hydration. Renal ultrasound- no hydro (2) HTN (hypertension) Current Visit: Yes Status: Chronic Qualifiers: Hypertension type: H Plan to address problem: BP not at goal-optimise BP meds (3) Anemia Current Visit: No Status: Chronic Qualifiers: Anemia type: unspecified type Iron deficiency anemia type: I Vitamin B12 deficiency anemia type: V Folate deficiency anemia type: F Bone marrow failure anemia type: B Hemolytic anemia type: H Other causes of anemia: O Chronic kidney disease stage: C Qualified Code(s): D64.9 - Anemia, unspecified (4) CVA (cerebral vascular accident) Current Visit: No Status: Chronic Qualifiers: CVA mechanism: C Precerebral and cerebral artery: P Laterality of affected vessel: L (5) Leukocytosis Current Visit: No Status: Acute Qualifiers: Leukocytosis type: unspecified Qualified Code(s): D72.829 - Elevated white blood cell count, unspecified Subjective Date of service: 04/21/17 Interval history: pt is more alert today, able to answer, not in distress. Denies CP or SOB Objective - Vital Signs Vital signs: Vital Signs - 12hr 04/21/17 04/21/17 04/21/17 00:05 00:20 00:52 Temperature 98.1 F Pulse Rate 101 H Pulse Rate [ 90 Left Radial] Respiratory 20 20 Rate Blood Pressure Blood Pressure 184/81 [Left Arm] O2 Sat by Pulse 100 Oximetry 04/21/17 04/21/17 04:54 06:00 Temperature 98.0 F Pulse Rate Pulse Rate [ 92 H Left Radial] Respiratory 18 Rate Blood Pressure 204/111 Blood Pressure 206/111 [Left Arm] O2 Sat by Pulse 100 Oximetry - General Appearance General appearance: chronically ill EENT: mucous membranes dry Neck: no JVD Respiratory: Present: Decreased Breath Sounds Cardiology: regular Gastrointestinal: normoactive bowel sounds Musculoskeletal: other (left AKA) Psychiatric: mood/affect appropriate, cooperative - Lab 04/21/17 02:00 04/21/17 02:00 Most recent lab results Calcium 9.0 mg/dL (8.4-10.2) 04/21/17 02:00
[2017-04-21 10:07] LABS: Bacteria,Urine 1+ /HPF (Negative); Bilirubin,Urine NEG (Negative); Blood,Urine NEG (Negative); Ketones,Urine NEG (Negative); Leukocyte Esterase,Urine SM (Negative); Nitrite,Urine NEG (Negative); Urobilinogen,Urine < 2.0 mg/dL (<2.0)
[2017-04-21] MEDS: PROTONIX IV SCH (11:04)
[2017-04-21] MEDS: NACL 0.9% 1000 ML 1,000 ML IV SCH (11:15)
--- NOTE | 2017-04-21 14:27 | Progress Note ---
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 04/13/17 MRI of brain shows no acute stroke but chronic small vessel disease. 04/13/17 Carotid doppler shows 50-79% stenosis left ICA but MRA neck showed only slight stenosis of 14%, evaluated by Vascular Surgeon. Renal ultrasound shows chronic parenchymal disease but no obstruction. Hgb was 6.1 on admission. 04/20/[address] Bateman reported as "normal Upper digestive tract. Plan for outpatient evaluation as the patient does not appear to be overtly bleeding. Consideration of colonoscopy and/or pill camera study." per Dr. Bateman -Acute on Chronic anemia s/p blood transfusions: monitor h/h -ARF/CKD4: Renal consulted -Accelerated hypertension: added iv labetalol -CVA with slight residuals: PT -Uncontrolled type 2 diabetes mellitus: Add SSI -DVT prophylaxis: SCDs only due to anemia History Interval history: Patient seen and examined. Follow up on altered mental status and weakness which is improved. No new issue pains or complaints. Overnight uneventful. No cp, sob, n/v or severe headaches. Imaging, old records, testing, labs, nursing notes reviewed. Hospitalist Physical - Physical exam Narrative exam: GEN: Chronically disabled, cachectic NAD, AWAKE, ALERT, ORIENTATED x 3 CVS: RRR, NORMAL S1S2 LUNGS/CHEST: CTA B, NORMAL CHEST EXPANSION B, GOOD AIR ENTRY B ABD: SOFT, NTND, GBS, NO REBOUND OR GUARDING Contracted lower extremities bilaterally NEURO: CN 2-12 GROSSLY INTACT, NO NEW FOCAL DEFICITS PSY: CALM - Constitutional Vitals: Temp Pulse Resp BP Pulse Ox 98.4 F 106 H 18 147/77 100 04/21/17 11:25 04/21/17 11:25 04/21/17 11:25 04/21/17 11:25 04/21/17 04:54 General appearance: Absent: mild distress Results - Labs CBC & Chem 7: 04/21/17 02:00 04/21/17 02:00 Labs: Laboratory Last Values WBC 12.8 K/mm3 (4.5-11.0) H 04/21/17 02:00 RBC 3.37 M/mm3 (3.65-5.03) L 04/21/17 02:00 Hgb 9.7 gm/dl (10.1-14.3) L 04/21/17 02:00 Hct 29.6 % (30.3-42.9) L 04/21/17 02:00 MCV 88 fl (79-97) 04/21/17 02:00 MCH 29 pg (28-32) 04/21/17 02:00 MCHC 33 % (30-34) 04/21/17 02:00 RDW 15.6 % (13.2-15.2) H 04/21/17 02:00 Plt Count 335 K/mm3 (140-440) 04/21/17 02:00 Lymph % (Auto) 14.5 % (13.4-35.0) 04/20/17 22:52 [place] % (Auto) 7.5 % (0.0-7.3) H 04/20/17 22:52 Eos % (Auto) 1.5 % (0.0-4.3) 04/20/17 22:52 Baso % (Auto) 0.5 % (0.0-1.8) 04/20/17 22:52 Lymph # 1.8 K/mm3 (1.2-5.4) 04/20/17 22:52 [place] # 0.9 K/mm3 (0.0-0.8) H 04/20/17 22:52 Eos # 0.2 K/mm3 (0.0-0.4) 04/20/17 22:52 Baso # 0.1 K/mm3 (0.0-0.1) 04/20/17 22:52 Seg Neutrophils % 76.0 % (40.0-70.0) H 04/20/17 22:52 Seg Neutrophils # 9.3 K/mm3 (1.8-7.7) H 04/20/17 22:52 ESR 55 mm/Hr (0-20) 04/20/17 22:52 Percent Retic 2.30 % (0.78-2.58) 04/20/17 22:52 PT 13.6 Sec. (12.2-14.9) 04/19/17 22:08 INR 1.05 (0.87-1.13) 04/19/17 22:08 APTT 21.7 Sec. (24.2-36.6) L 04/19/17 22:08 Sodium 146 mmol/L (137-145) H 04/21/17 02:00 Potassium 4.5 mmol/L (3.6-5.0) 04/21/17 02:00 Chloride 106.4 mmol/L (98-107) 04/21/17 02:00 Carbon Dioxide 22 mmol/L (22-30) 04/21/17 02:00 Anion Gap 22 mmol/L 04/21/17 02:00 BUN 57 mg/dL (7-17) H 04/21/17 02:00 Creatinine 4.3 mg/dL (0.7-1.2) H 04/21/17 02:00 Estimated GFR 13 ml/min 04/21/17 02:00 BUN/Creatinine Ratio 13.25 % 04/21/17 02:00 Glucose 125 mg/dL (65-100) H 04/21/17 02:00 POC Glucose 194 (70-105) H 04/21/17 11:26 Calcium 9.0 mg/dL (8.4-10.2) 04/21/17 02:00 Iron 51 ug/dL (37-170) 04/20/17 22:52 TIBC 199 mcg/dL (250-450) L 04/20/17 22:52 Ferritin 38.4 ng/mL (13.0-400.0) 04/20/17 22:52 Total Bilirubin 0.20 mg/dL (0.1-1.2) 04/20/17 22:52 Direct Bilirubin < 0.2 mg/dL (0-0.2) 04/20/17 22:52 Indirect Bilirubin 0.0 mg/dL 04/20/17 22:52 Vitamin B12 1055 pg/mL (211-911) H 04/20/17 22:52 Folate 5.29 ng/mL (7.3-26.0) L 04/20/17 22:52 Urine Color Straw (Yellow) 04/21/17 09:10 Urine Turbidity Clear (Clear) 04/21/17 09:10 Urine pH 7.0 (5.0-7.0) 04/21/17 09:10 Ur Specific [place] 1.011 (1.003-1.030) 04/21/17 09:10 Urine Protein 100 mg/dl mg/dL (Negative) 04/21/17 09:10 Urine Glucose (UA) 50 mg/dL (Negative) 04/21/17 09:10 Urine Ketones Neg mg/dL (Negative) 04/21/17 09:10 Urine Blood Neg (Negative) 04/21/17 09:10 Urine Nitrite Neg (Negative) 04/21/17 09:10 Urine Bilirubin Neg (Negative) 04/21/17 09:10 Urine Urobilinogen < 2.0 mg/dL (<2.0) 04/21/17 09:10 Ur Leukocyte Esterase Sm (Negative) 04/21/17 09:10 Urine WBC (Auto) 3.0 /HPF (0.0-6.0) 04/21/17 09:10 Urine RBC (Auto) 1.0 /HPF (0.0-6.0) 04/21/17 09:10 U Epithel Cells (Auto) 3.0 /HPF (0-13.0) 04/21/17 09:10 Urine Bacteria (Auto) 1+ /HPF (Negative) 04/21/17 09:10 Urine Creatinine 44.3 mg/dL (0.1-20.0) H 04/21/17 09:10 Urine Sodium 94 mEq/L 04/21/17 09:10 Urine Chloride 78.3 mEq/L (110-250) L 04/21/17 09:10 Blood Type O POSITIVE 04/19/17 22:14 Antibody Screen TNR 04/19/17 22:14 GIOVANI Antibody Screen Negative 04/19/17 22:14 Direct Antiglob Test Negative 04/20/17 22:52 CODI, Poly Interpret Negative 04/20/17 22:52 Crossmatch See Detail 04/19/17 22:14
[2017-04-21] MEDS ORDERED: CATAPRES-TTS PATCH TD SCH (16:00)
[2017-04-21] MEDS: NORVASC PO SCH (16:09)
--- NOTE | 2017-04-21 16:46 | Gastroenterology Progress Note ---
Assessment and Plan GI: stable without GI complaints overnight - diet as tolerated - will consider colonoscopy and other intervention as outpt - ok to d/c from GI standpoint - will sign off, call if needed Subjective Date of service: 04/21/17 Interval history: - no GI complaints overnight Objective - Constitutional Vitals: Temp Pulse Resp BP Pulse Ox 98.4 F 98 H 18 181/84 100 04/21/17 11:25 04/21/17 16:10 04/21/17 11:25 04/21/17 16:10 04/21/17 04:54 General appearance: no acute distress - Respiratory Respiratory: bilateral: CTA - Cardiovascular Rhythm: regular Heart Sounds: Present: S1 & S2 - Gastrointestinal General gastrointestinal: Present: soft, non-tender - Labs CBC & Chem 7: 04/21/17 02:00 04/21/17 02:00 Labs: Laboratory Results - last 24 hr 04/20/17 04/20/17 04/20/17 09:19 14:14 16:46 WBC RBC Hgb Hct MCV MCH MCHC RDW Plt Count Lymph % (Auto) [place] % (Auto) Eos % (Auto) Baso % (Auto) Lymph # [place] # Eos # Baso # Seg Neutrophils % Seg Neutrophils # ESR Percent Retic Sodium Potassium Chloride Carbon Dioxide Anion Gap BUN Creatinine Estimated GFR BUN/Creatinine Ratio Glucose POC Glucose 130 H 134 H 132 H Calcium Iron TIBC Ferritin Total Bilirubin Direct Bilirubin Indirect Bilirubin Vitamin B12 Folate Urine Color Urine Turbidity Urine pH Ur Specific [place] Urine Protein Urine Glucose (UA) Urine Ketones Urine Blood Urine Nitrite Urine Bilirubin Urine Urobilinogen Ur Leukocyte Esterase Urine WBC (Auto) Urine RBC (Auto) U Epithel Cells (Auto) Urine Bacteria (Auto) Urine Creatinine Urine Sodium Urine Chloride Direct Antiglob Test CODI, Poly Interpret 04/20/17 04/20/17 04/20/17 22:52 22:52 22:52 WBC RBC Hgb Hct MCV MCH MCHC RDW Plt Count Lymph % (Auto) [place] % (Auto) Eos % (Auto) Baso % (Auto) Lymph # [place] # Eos # Baso # Seg Neutrophils % Seg Neutrophils # ESR Percent Retic Sodium Potassium Chloride Carbon Dioxide Anion Gap BUN Creatinine Estimated GFR BUN/Creatinine Ratio Glucose POC Glucose Calcium Iron 51 TIBC 199 L Ferritin 38.4 Total Bilirubin Direct Bilirubin Indirect Bilirubin Vitamin B12 1055 H Folate Urine Color Urine Turbidity Urine pH Ur Specific [place] Urine Protein Urine Glucose (UA) Urine Ketones Urine Blood Urine Nitrite Urine Bilirubin Urine Urobilinogen Ur Leukocyte Esterase Urine WBC (Auto) Urine RBC (Auto) U Epithel Cells (Auto) Urine Bacteria (Auto) Urine Creatinine Urine Sodium Urine Chloride Direct Antiglob Test CODI, Poly Interpret 04/20/17 04/20/17 04/20/17 22:52 22:52 22:52 WBC RBC Hgb Hct MCV MCH MCHC RDW Plt Count Lymph % (Auto) [place] % (Auto) Eos % (Auto) Baso % (Auto) Lymph # [place] # Eos # Baso # Seg Neutrophils % Seg Neutrophils # ESR Percent Retic Sodium Potassium Chloride Carbon Dioxide Anion Gap BUN Creatinine Estimated GFR BUN/Creatinine Ratio Glucose POC Glucose Calcium Iron TIBC Ferritin Total Bilirubin 0.20 Direct Bilirubin < 0.2 Indirect Bilirubin 0.0 Vitamin B12 Folate 5.29 L Urine Color Urine Turbidity Urine pH Ur Specific [place] Urine Protein Urine Glucose (UA) Urine Ketones Urine Blood Urine Nitrite Urine Bilirubin Urine Urobilinogen Ur Leukocyte Esterase Urine WBC (Auto) Urine RBC (Auto) U Epithel Cells (Auto) Urine Bacteria (Auto) Urine Creatinine Urine Sodium Urine Chloride Direct Antiglob Test Negative CODI, Poly Interpret Negative 04/20/17 04/21/17 04/21/17 22:52 02:00 02:00 WBC 12.2 H 12.8 H RBC 3.17 L 3.37 L Hgb 9.2 L 9.7 L Hct 28.1 L 29.6 L MCV 89 88 MCH 29 29 MCHC 33 33 RDW 14.9 15.6 H Plt Count 320 335 Lymph % (Auto) 14.5 [place] % (Auto) 7.5 H Eos % (Auto) 1.5 Baso % (Auto) 0.5 Lymph # 1.8 [place] # 0.9 H Eos # 0.2 Baso # 0.1 Seg Neutrophils % 76.0 H Seg Neutrophils # 9.3 H ESR 55 Percent Retic 2.30 Sodium 146 H Potassium 4.5 Chloride 106.4 Carbon Dioxide 22 Anion Gap 22 BUN 57 H Creatinine 4.3 H Estimated GFR 13 BUN/Creatinine Ratio 13.25 Glucose 125 H POC Glucose Calcium 9.0 Iron TIBC Ferritin Total Bilirubin Direct Bilirubin Indirect Bilirubin Vitamin B12 Folate Urine Color Urine Turbidity Urine pH Ur Specific [place] Urine Protein Urine Glucose (UA) Urine Ketones Urine Blood Urine Nitrite Urine Bilirubin Urine Urobilinogen Ur Leukocyte Esterase Urine WBC (Auto) Urine RBC (Auto) U Epithel Cells (Auto) Urine Bacteria (Auto) Urine Creatinine Urine Sodium Urine Chloride Direct Antiglob Test CODI, Poly Interpret 04/21/17 04/21/17 04/21/17 08:02 09:10 09:10 WBC RBC Hgb Hct MCV MCH MCHC RDW Plt Count Lymph % (Auto) [place] % (Auto) Eos % (Auto) Baso % (Auto) Lymph # [place] # Eos # Baso # Seg Neutrophils % Seg Neutrophils # ESR Percent Retic Sodium Potassium Chloride Carbon Dioxide Anion Gap BUN Creatinine Estimated GFR BUN/Creatinine Ratio Glucose POC Glucose 97 Calcium Iron TIBC Ferritin Total Bilirubin Direct Bilirubin Indirect Bilirubin Vitamin B12 Folate Urine Color Straw Urine Turbidity Clear Urine pH 7.0 Ur Specific [place] 1.011 Urine Protein 100 mg/dl Urine Glucose (UA) 50 Urine Ketones Neg Urine Blood Neg Urine Nitrite Neg Urine Bilirubin Neg Urine Urobilinogen < 2.0 Ur Leukocyte Esterase Sm Urine WBC (Auto) 3.0 Urine RBC (Auto) 1.0 U Epithel Cells (Auto) 3.0 Urine Bacteria (Auto) 1+ Urine Creatinine 44.3 H Urine Sodium 94 Urine Chloride 78.3 L Direct Antiglob Test CODI, Poly Interpret 04/21/17 11:26 WBC RBC Hgb Hct MCV MCH MCHC RDW Plt Count Lymph % (Auto) [place] % (Auto) Eos % (Auto) Baso % (Auto) Lymph # [place] # Eos # Baso # Seg Neutrophils % Seg Neutrophils # ESR Percent Retic Sodium Potassium Chloride Carbon Dioxide Anion Gap BUN Creatinine Estimated GFR BUN/Creatinine Ratio Glucose POC Glucose 194 H Calcium Iron TIBC Ferritin Total Bilirubin Direct Bilirubin Indirect Bilirubin Vitamin B12 Folate Urine Color Urine Turbidity Urine pH Ur Specific [place] Urine Protein Urine Glucose (UA) Urine Ketones Urine Blood Urine Nitrite Urine Bilirubin Urine Urobilinogen Ur Leukocyte Esterase Urine WBC (Auto) Urine RBC (Auto) U Epithel Cells (Auto) Urine Bacteria (Auto) Urine Creatinine Urine Sodium Urine Chloride Direct Antiglob Test CODI, Poly Interpret
--- NOTE | 2017-04-21 20:40 | Consultation ---
History of Present Illness - Reason for Consult Consult date: 04/21/17 - History of Present Illness Patient seen/examined, labs reviewed, case d/w patient. W/up lab results still pending. Past History Past Medical History: diabetes, hypertension, PVD, stroke (L sided hemiparesis) Past Surgical History: cholecystectomy, Other (Left AKA) Social history: other ([facility] resident). denies: smoking (former smoker) , alcohol abuse Medications and Allergies Allergies Allergy/AdvReac Type Severity Reaction Status Date / Time guaifenesin [From Robitussin] Allergy Unknown Verified 04/19/17 21:22 Home Medications Medication Instructions Recorded Confirmed Last Taken Type Acetaminophen [Acetaminophen ER 650 mg PO Q8HR PRN 04/13/17 04/21/17 Unknown History TAB] Gabapentin [Neurontin] 100 mg PO Q8HR 04/13/17 04/21/17 Unknown History Insulin Detemir [Levemir] 8 unit SUB-Q QHS 04/13/17 04/21/17 Unknown History Insulin Lispro [HumaLOG VIAL] 0 units SQ AC 04/13/17 04/21/17 Unknown History Magnesium Hydroxide [Milk of 30 ml PO Q72HR PRN 04/13/17 04/21/17 Unknown History Magnesia] Meloxicam [Mobic] 7.5 mg PO QDAY 04/13/17 04/21/17 Unknown History Metformin HCl [Glucophage] 500 mg PO BID 04/13/17 04/21/17 Unknown History Metoprolol Xl [Metoprolol 50 mg PO QDAY 04/13/17 04/21/17 Unknown History SUCCINATE ER TAB] Mirtazapine 7.5 mg PO DAILY 04/13/17 04/21/17 Unknown History Pantoprazole [Protonix TAB] 40 mg PO QDAY 04/13/17 04/21/17 Unknown History Sennosides/Docusate Sodium [Senna 2 each PO QHS 04/13/17 04/21/17 Unknown History S Tablet] Sertraline [Zoloft] 50 mg PO QDAY 04/13/17 04/21/17 Unknown History Tamsulosin [Flomax] 0.4 mg PO QDAY 04/13/17 04/21/17 Unknown History Tuberculin Ppd [Aplisol] 0.1 ml ID Q12M 04/13/17 04/21/17 Unknown History amLODIPine [Norvasc] 10 mg PO DAILY 04/13/17 04/21/17 Unknown History cloNIDine [Clonidine] 1 each TD QWEEK 04/13/17 04/21/17 Unknown History traMADol [Ultram 50 MG tab] 50 mg PO Q8H PRN 04/13/17 04/21/17 Unknown History Ciprofloxacin HCl [Ciprofloxacin 250 mg PO BID #5 day 04/16/17 04/21/17 Unknown Rx TAB] oxyCODONE /ACETAMINOPHEN [Percocet 1 tab PO Q6HR PRN #30 tablet 04/16/17 Unknown Rx 5/325 mg] Active Meds: Active Medications Amlodipine Besylate (Norvasc) 10 mg PO DAILY ON LICENSE OF [facility] Last Admin: 04/21/17 16:09 Dose: 10 mg Bisacodyl (Dulcolax) 10 mg NE QDAY PRN PRN Reason: [place] [facility] [place] HCl (Catapres-Tts Patch) 0.1 mg TD ON LICENSE OF [facility] Last Admin: 04/20/17 14:27 Dose: 0.1 mg Clonidine HCl (Catapres-Tts Patch) 0.3 mg TD [facility] Last Admin: 04/21/17 16:10 Dose: 0.3 mg Gabapentin (Neurontin) 100 mg PO Q8HR ON LICENSE OF [facility] Hydralazine HCl (Apresoline) 10 mg IV Q4HR PRN PRN Reason: Hypertension Last Admin: 04/21/17 11:18 Dose: 10 mg Insulin Detemir (Levemir) 8 units SUB-Q QHS ON LICENSE OF [facility] Labetalol HCl (Normodyne) 10 mg IV ONCE PRN PRN Reason: Blood Pressure Last Admin: 04/21/17 19:58 Dose: 10 mg Mirtazapine (Remeron) 7.5 mg PO QHS ON LICENSE OF [facility] Ondansetron HCl (Zofran) 4 mg IV Q8H PRN PRN Reason: N/V unrelieved by Reg[facility] Oxycodone/Acetaminophen (Percocet 5/325) 1 tab PO Q6H PRN PRN Reason: Pain, Moderate (4-6) Last Admin: 04/21/17 00:39 Dose: 1 tab Pantoprazole Sodium (Protonix) 40 mg PO QDAY REYES Sertraline HCl (Zoloft) 50 mg PO QDAY REYES Tamsulosin HCl (Flomax) 0.4 mg PO QDAY REYES Review of Systems Constitutional: fatigue Breasts: deferred Exam - Constitutional Vitals: Temp Pulse Resp BP Pulse Ox 98.8 F 93 H 20 208/100 97 04/21/17 18:15 04/21/17 19:58 04/21/17 18:15 04/21/17 19:58 04/21/17 18:15 General appearance: Present: no acute distress, well-nourished - EENT Eyes: Present: PERRL ENT: hearing intact, clear oral mucosa - Neck Neck: Present: supple, normal ROM - Respiratory Respiratory effort: normal Respiratory: bilateral: CTA - Cardiovascular Heart Sounds: Present: S1 & S2. Absent: rub, click - Extremities Extremities: pulses symmetrical, No edema Peripheral Pulses: within normal limits - Abdominal General gastrointestinal: Present: soft, non-tender, non-distended, normal bowel sounds Female genitourinary: Present: deferred - Rectal Rectal Exam: deferred - Integumentary Integumentary: Present: clear, warm, dry - Musculoskeletal Musculoskeletal: gait normal, strength equal bilaterally - Psychiatric Psychiatric: appropriate mood/affect - Neurologic Neurologic: CNII-XII intact, moves all extremities Results - Labs CBC & Chem 7: 04/21/17 02:00 04/21/17 02:00 Labs: Abnormal lab results 04/20/17 04/20/17 04/20/17 Range/Units 09:19 14:14 16:46 WBC (4.5-11.0) K/mm3 RBC (3.65-5.03) M/mm3 Hgb (10.1-14.3) gm/dl Hct (30.3-42.9) % RDW (13.2-15.2) % [place] % (Auto) (0.0-7.3) % [place] # (0.0-0.8) K/mm3 Seg Neutrophils % (40.0-70.0) % Seg Neutrophils # (1.8-7.7) K/mm3 Sodium (137-145) mmol/L BUN (7-17) mg/dL Creatinine (0.7-1.2) mg/dL Glucose (65-100) mg/dL POC Glucose 130 H 134 H 132 H (70-105) TIBC (250-450) mcg/dL Vitamin B12 (211-911) pg/mL Folate (7.3-26.0) ng/mL Urine Creatinine (0.1-20.0) mg/dL Urine Chloride (110-250) mEq/L 04/20/17 04/20/17 04/20/17 Range/Units 22:52 22:52 22:52 WBC (4.5-11.0) K/mm3 RBC (3.65-5.03) M/mm3 Hgb (10.1-14.3) gm/dl Hct (30.3-42.9) % RDW (13.2-15.2) % [place] % (Auto) (0.0-7.3) % [place] # (0.0-0.8) K/mm3 Seg Neutrophils % (40.0-70.0) % Seg Neutrophils # (1.8-7.7) K/mm3 Sodium (137-145) mmol/L BUN (7-17) mg/dL Creatinine (0.7-1.2) mg/dL Glucose (65-100) mg/dL POC Glucose (70-105) TIBC 199 L (250-450) mcg/dL Vitamin B12 1055 H (211-911) pg/mL Folate 5.29 L (7.3-26.0) ng/mL Urine Creatinine (0.1-20.0) mg/dL Urine Chloride (110-250) mEq/L 04/20/17 04/21/17 04/21/17 Range/Units 22:52 02:00 02:00 WBC 12.2 H 12.8 H (4.5-11.0) K/mm3 RBC 3.17 L 3.37 L (3.65-5.03) M/mm3 Hgb 9.2 L 9.7 L (10.1-14.3) gm/dl Hct 28.1 L 29.6 L (30.3-42.9) % RDW 15.6 H (13.2-15.2) % [place] % (Auto) 7.5 H (0.0-7.3) % [place] # 0.9 H (0.0-0.8) K/mm3 Seg Neutrophils % 76.0 H (40.0-70.0) % Seg Neutrophils # 9.3 H (1.8-7.7) K/mm3 Sodium 146 H (137-145) mmol/L BUN 57 H (7-17) mg/dL Creatinine 4.3 H (0.7-1.2) mg/dL Glucose 125 H (65-100) mg/dL POC Glucose (70-105) TIBC (250-450) mcg/dL Vitamin B12 (211-911) pg/mL Folate (7.3-26.0) ng/mL Urine Creatinine (0.1-20.0) mg/dL Urine Chloride (110-250) mEq/L 04/21/17 04/21/17 Range/Units 09:10 11:26 WBC (4.5-11.0) K/mm3 RBC (3.65-5.03) M/mm3 Hgb (10.1-14.3) gm/dl Hct (30.3-42.9) % RDW (13.2-15.2) % [place] % (Auto) (0.0-7.3) % [place] # (0.0-0.8) K/mm3 Seg Neutrophils % (40.0-70.0) % Seg Neutrophils # (1.8-7.7) K/mm3 Sodium (137-145) mmol/L BUN (7-17) mg/dL Creatinine (0.7-1.2) mg/dL Glucose (65-100) mg/dL POC Glucose 194 H (70-105) TIBC (250-450) mcg/dL Vitamin B12 (211-911) pg/mL Folate (7.3-26.0) ng/mL Urine Creatinine 44.3 H (0.1-20.0) mg/dL Urine Chloride 78.3 L (110-250) mEq/L Assessment and Plan - Patient Problems (1) Anemia Current Visit: Yes Status: Acute Qualifiers: Anemia type: A Iron deficiency anemia type: I Vitamin B12 deficiency anemia type: V Folate deficiency anemia type: F Bone marrow failure anemia type: B Hemolytic anemia type: H Other causes of anemia: O Chronic kidney disease stage: C Plan to address problem: stable post transfusion, see further w/up orders. Results pending. (2) Chronic renal insufficiency Current Visit: Yes Status: Acute Qualifiers: Chronic kidney disease stage: C Plan to address problem: follow renal service. (3) CVA (cerebral vascular accident) Current Visit: No Status: Acute Qualifiers: CVA mechanism: unspecified Precerebral and cerebral artery: P Laterality of affected vessel: L Qualified Code(s): I63.9 - Cerebral infarction, unspecified Plan to address problem: supportive care
[2017-04-21] MEDS ORDERED: LEVEMIR SUB-Q SCH (22:00)
[2017-04-21] MEDS ORDERED: REMERON PO SCH (22:00)
[2017-04-21] MEDS: NEURONTIN PO SCH (22:30)
[2017-04-22] MEDS: APRESOLINE IV PRN (05:45)
[2017-04-22] MEDS: NEURONTIN PO SCH ×2 (05:45→16:31)
[2017-04-22] MEDS ORDERED: NON-FORMULARY (Mirtazapine [Mirtazapine] 7.5 MG) PO SCH (10:00)
[2017-04-22] MEDS ORDERED: FLOMAX PO SCH (10:00)
[2017-04-22] MEDS ORDERED: ZOLOFT PO SCH (10:00)
[2017-04-22] MEDS ORDERED: PROTONIX PO SCH (10:00)
[2017-04-22] MEDS: NORVASC PO SCH (11:10)
--- NOTE | 2017-04-22 12:54 | Discharge Summary ---
Providers - Providers Date of Admission: 04/19/17 23:57 Date of discharge: 04/22/17 Attending physician: BREANA CAMPUZANO 04/20/17 08:51 Consult to Physician [CONS] Routine Consulting Provider: RODRÍGUEZ CRANDALL Reason For Exam: dolores Place consult to:: Dr. 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 Prior MRI of brain (on last admission) shows no acute stroke but chronic small vessel disease. 04/13/17 Carotid doppler shows 50-79% stenosis left ICA but MRA neck showed only slight stenosis of 14%, evaluated by Vascular Surgeon. Renal ultrasound shows chronic parenchymal disease but no obstruction. Hgb was 6.1 on admission. 04/20/[address] Bateman reported as "normal Upper digestive tract. Plan for outpatient evaluation as the patient does not appear to be overtly bleeding. Consideration of colonoscopy and/or pill camera study." per Dr. Bateman -Acute on Chronic anemia s/p blood transfusions 2 units prbc -ARF/CKD4: Renal consulted -Accelerated hypertension: added iv labetalol -CVA with slight residuals: PT -Uncontrolled type 2 diabetes mellitus: Add SSI -DVT prophylaxis: SCDs only due to anemia urine ctx and blood ctx negative so far per GI: stable without GI complaints overnight - diet as tolerated - will consider colonoscopy and other intervention as outpt - ok to d/c from GI standpoint - will sign off, call if needed Disposition: [id number] [facility] C[facility] Time spent for discharge: 36 minutes Core Measure Documentation - Palliative Care Palliative Care/ Comfort Measures: Not Applicable - Core Measures Any of the following diagnoses?: none - VTE Discharge Requirements Deep Vein Thrombosis/Pulmonary Embolism Present on Admission: No Has pt received <5 days of overlap therapy or INR<2.0: No Anticoagulant overlap therapy prescribed at discharge: No Contraindication No Overlap Therapy order at DC: Not Indicated Exam - Physical Exam Narrative exam: GEN: Chronically disabled, cachectic NAD, AWAKE, ALERT, ORIENTATED x 3 CVS: RRR, NORMAL S1S2 LUNGS/CHEST: CTA B, NORMAL CHEST EXPANSION B, GOOD AIR ENTRY B ABD: SOFT, NTND, GBS, NO REBOUND OR GUARDING Contracted lower extremities bilaterally NEURO: CN 2-12 GROSSLY INTACT, NO NEW FOCAL DEFICITS PSY: CALM - Constitutional Vitals: Temp Pulse Resp BP Pulse Ox 98.7 F 90 20 157/67 96 04/22/17 08:00 04/22/17 08:00 04/22/17 08:00 04/22/17 08:00 04/22/17 08:00 Plan Activity: up only with assistance, fall precautions Diet: other (mechanical soft diet with ground meats, no straw) Follow up with: PRIMARY CARE, [Primary Care Provider] - 3-5 Days
--- NOTE | 2017-04-22 12:55 | Progress Note ---
Assessment and Plan Impression * Acute on chronic renal failure. Most likely prerenal. Her baseline creatinine seems to be approximately 1.6 * Proteinuria. Most likely secondary to diabetic nephropathy * Hypertension * dehydration * Altered mental status * Diabetes Recommendations * Her urine shows 2+ dipstick protein * Her fractional excretion of sodium is 6% * renal ultrasound shows some increased echogenicity * Continue IV hydration * Avoid nephrotoxins * Shall check a protein creatinine ratio * Adjust antihypertensive meds. Avoid TI inhibitor/ARB and diuretics at this time * Monitor patient's fluid status and electrolytes closely Subjective Date of service: 04/22/17 Interval history: Patient is sleeping comfortably. Objective - Vital Signs Vital signs: Vital Signs - 12hr 04/22/17 04/22/17 04/22/17 01:48 04:05 05:45 Temperature 98.7 F Pulse Rate 88 Pulse Rate [ 90 Left Radial] Respiratory 22 Rate Blood Pressure 167/92 Blood Pressure 165/78 [Right Arm] O2 Sat by Pulse 100 Oximetry 04/22/17 08:00 Temperature 98.7 F Pulse Rate Pulse Rate [ 90 Left Radial] Respiratory 20 Rate Blood Pressure Blood Pressure 157/67 [Right Arm] O2 Sat by Pulse 96 Oximetry - General Appearance General appearance: chronically ill, frail, other (elderly -[place] female) EENT: PERRL, mucous membranes moist Neck: no JVD, no thyromegaly, no carotid bruit, supple Respiratory: Present: Clear to Ascultation Cardiology: regular, normal heart rate, S1S2, no murmurs Gastrointestinal: normal, normoactive bowel sounds Integumentary: no rash, other (no edema) - Lab 04/21/17 02:00 04/21/17 02:00 Most recent lab results Calcium 9.0 mg/dL (8.4-10.2) 04/21/17 02:00 Urine Creatinine 44.3 mg/dL (0.1-20.0) H 04/21/17 09:10 Urine Sodium 94 mEq/L 04/21/17 09:10
[2017-04-22 14:31] LABS: Hematocrit 27.6 % (30.3-42.9); Hemoglobin 9.2 gm/dl (10.1-14.3)
[2017-04-22 17:09] VITALS: BP 120/78
[2017-04-24 16:50] LABS: Gamma Globulin 1.2 g/dL (0.8-1.7)
== END 2017-04-22 17:48 | disposition home or self-care (01) | DRG 377 ==
LOC: ED 20:49 → 4A 23:57
PROVIDERS: ADMIT Internal Medicine; ATTEND Internal Medicine
PROC: 30233N1 Transfusion of Nonautologous Red Blood Cells into Peripheral Vein, Percutaneous Approach (ICD-10-PCS; principal; 2017-04-20)
PROC: 0DJ08ZZ Inspection of Upper Intestinal Tract, Via Natural or Artificial Opening Endoscopic (ICD-10-PCS; 2017-04-20)
DX: K92.2 Gastrointestinal hemorrhage, unspecified (principal); N17.0 Acute kidney failure with tubular necrosis; G82.50 Quadriplegia, unspecified; E86.0 Dehydration; I12.0 Hypertensive chronic kidney disease with stage 5 chronic kidney disease or end stage renal disease; I16.0 Hypertensive urgency; I73.9 Peripheral vascular disease, unspecified; E11.51 Type 2 diabetes mellitus with diabetic peripheral angiopathy without gangrene; E11.22 Type 2 diabetes mellitus with diabetic chronic kidney disease; D62 Acute posthemorrhagic anemia; N18.5 Chronic kidney disease, stage 5; Z68.20 Body mass index [BMI] 20.0-20.9, adult; Z79.4 Long term (current) use of insulin; I69.354 Hemiplegia and hemiparesis following cerebral infarction affecting left non-dominant side; I69.322 Dysarthria following cerebral infarction; Z89.612 Acquired absence of left leg above knee; Z90.49 Acquired absence of other specified parts of digestive tract; Z88.8 Allergy status to other drugs, medicaments and biological substances
CPT/HCPCS: 36415; 36430; 76770; 80048; 81001; 82232; 82248; 82271; 82436; 82570; 82607; 82728; 82747; 82962; 83010; 83550; 83921; 84165; 84166; 84300; 85014; 85018; 85025; 85027; 85045; 85610; 85652; 85730; 86850; 86880; 86900; 86901; 86920; 87040; 87086; 93005; 93010; 96361; 96374; 96375; C9113; J0360; J1818; J2704; J7030; J7040; P9016

== ENCOUNTER 2017-09-28 13:28 | Emergency (ER) | payer MEDICARE ==
[2017-09-28 14:54] LABS: Basophils % (Auto) 0.5 % (0.0-1.8); Eosinophils % (Auto) 3.3 % (0.0-4.3); Hematocrit 30.5 % (30.3-42.9); Mean Corpuscular HGB Conc 33 % (30-34); Mean Corpuscular Hemoglobin 30 pg (28-32); Mean Corpuscular Volume 92 fl (79-97); Platelet Count 329 K/mm3 (140-440); Red Blood Count 3.32 M/mm3 (3.65-5.03); White Blood Count 10.5 K/mm3 (4.5-11.0)
[2017-09-28 15:04] LABS: INR 0.96 (0.87-1.13)
[2017-09-28 15:05] LABS: Partial Thromboplastin Time 34.5 Sec. (24.2-36.6)
[2017-09-28 15:07] LABS: Calcium 8.8 mg/dL (8.4-10.2); Chloride 103.5 mmol/L (98-107)
--- NOTE | 2017-09-28 15:29 | Cat Scan Report ---
CT HEAD WITHOUT CONTRAST: HISTORY: Neurological deficit. TECHNIQUE: Sequential CT images without contrast. FINDINGS: Images obtained show bilateral prominence of the sulci and ventricles. There are no abnormal intra- or extra-axial blood or fluid collections. There are no focal masses or evidence of mass effect. The dunn white matter differentiation appears within normal limits. Regions of periventricular decreased attenuation are consistent with microangiopathic ischemic disease. 1 cm chronic focal infarct in the right brooks radiata is noted. Chronic lacunar infarct in the right meng is also noted. The posterior fossa structures including the fourth ventricle, cerebellum, and brainstem appear normal. IMPRESSION: Evidence of atrophy and microangiopathic ischemic disease. Chronic focal infarcts as described. No acute intracranial process noted. No significant change since 08/22/17.
--- NOTE | 2017-09-28 17:12 | Emergency Department Report ---
HPI - General Chief Complaint: High BP Time Seen by Provider: 09/28/17 16:55 - HPI HPI: Room 17 The patient is a 67-year-old female presenting with a chief complaint of hypertension. The patient reportedly was sent from [facility] to dialysis for her scheduled dialysis today when she was found to be hypertensive at 256/110. Patient was given amlodipine at the longterm and then 0.2 clonidine at dialysis. Nursing states the patient was not dialyzed in turn was sent to the ED for further management of her blood pressure. Patient denies complaints specifically denying chest pain, shortness breath nausea/vomiting or fever. Patient states that nothing is bothering her Location: Cardiovascular system Duration: [See above] Quality: Hypertensive Severity: 256/110 Modifying factors: [see above] Context: [see above] Mode of transportation: [not driving] ED Past Medical Hx - Past Medical History Hx Hypertension: Yes Hx CVA: Yes Hx Diabetes: Yes Hx Renal Disease: Yes (kidney insufficiency) - Surgical History Additional Surgical History: left amputee. G-tube - Family History Family history: no significant - Social History Smoking Status: Former Smoker Substance Use Type: None - Medications Home Medications: Home Medications Medication Instructions Recorded Confirmed Last Taken Type Acetaminophen [Acetaminophen ER 650 mg PO Q8HR PRN 04/13/17 08/22/17 Unknown History TAB] Magnesium Hydroxide [Milk of 30 ml PO Q72HR PRN 04/13/17 08/22/17 Unknown History Magnesia] cloNIDine [Clonidine] 1 each TD QWEEK 04/13/17 08/22/17 Unknown History traMADol [Ultram 50 MG tab] 50 mg PO Q8H PRN 04/13/17 08/22/17 Unknown History Aspirin EC [Ecotrin] 325 mg PO DAILY 08/22/17 08/22/17 Unknown History Docusate Sodium [Colace CAP] 100 mg PO BID 08/22/17 08/22/17 Unknown History Ranitidine HCl [Zantac 300 MG TAB] 300 mg PO BID 08/22/17 08/22/17 Unknown History Sennosides [Vegetable Laxative] 17.2 mg PO HS 08/22/17 08/22/17 Unknown History ALBUTEROL NEB's [Proventil 0.083% 2.5 mg IH Q4HRT PRN #50 nebu 09/02/17 Unknown Rx NEBS] AtorvaSTATin [Lipitor] 40 mg PO QHS #30 tablet 09/02/17 Unknown Rx Hydrochlorothiazide [HCTZ] 25 mg PO QAM #30 tablet 09/02/17 Unknown Rx Lisinopril [Zestril] 40 mg PO QAM #30 tablet 09/02/17 Unknown Rx Metoprolol Xl [Metoprolol 50 mg PO BID #60 tablet 09/02/17 Unknown Rx SUCCINATE ER TAB] Pantoprazole [Protonix TAB] 40 mg PO QAM #30 tablet 09/02/17 Unknown Rx Sertraline [Zoloft] 50 mg PO HS #30 tablet 09/02/17 Unknown Rx Tamsulosin [Flomax] 0.4 mg PO QAM #30 capsule 09/02/17 Unknown Rx amLODIPine [Norvasc] 10 mg PO QAM #30 tablet 09/02/17 Unknown Rx oxyCODONE /ACETAMINOPHEN [Percocet 1 tab PO Q6H PRN #30 tablet 09/02/17 Unknown Rx 5/325 mg] Hydralazine HCl 50 mg PO TID #90 tablet 09/28/17 Unknown Rx ED Review of Systems ROS: Stated complaint: HBP Other details as noted in HPI Constitutional: denies: fever Respiratory: denies: shortness of breath Cardiovascular: denies: chest pain Gastrointestinal: denies: nausea, vomiting Neurological: denies: headache Physical Exam - Physical Exam Vital Signs: Vital Signs 09/28/17 09/28/17 09/28/17 12:18 13:52 13:56 Temperature 98.2 F Pulse Rate 83 90 85 Respiratory 22 16 16 Rate Blood Pressure 224/106 Blood Pressure 224/109 [Right] O2 Sat by Pulse 97 100 Oximetry 09/28/17 09/28/17 09/28/17 14:00 14:15 14:16 Temperature Pulse Rate 86 86 Respiratory 11 L 16 12 Rate Blood Pressure 224/109 221/110 Blood Pressure [Right] O2 Sat by Pulse 99 100 Oximetry 09/28/17 09/28/17 09/28/17 14:30 14:58 15:00 Temperature Pulse Rate 82 84 85 Respiratory 17 12 16 Rate Blood Pressure 221/110 216/98 204/102 Blood Pressure [Right] O2 Sat by Pulse 100 100 100 Oximetry 09/28/17 09/28/17 09/28/17 15:01 15:16 15:30 Temperature Pulse Rate 84 84 85 Respiratory 15 11 L 15 Rate Blood Pressure 159/83 163/91 Blood Pressure 199/102 [Right] O2 Sat by Pulse 100 100 100 Oximetry 09/28/17 09/28/17 09/28/17 15:46 16:00 16:23 Temperature Pulse Rate 84 83 83 Respiratory 16 15 Rate Blood Pressure 163/76 168/76 Blood Pressure [Right] O2 Sat by Pulse Oximetry Physical Exam: GENERAL: The patient is well-developed well-nourished female lying on stretcher not appearing to be in acute distress. [] HEENT: Normocephalic. Atraumatic. Extraocular motions are intact. Patient has moist mucous membranes. NECK: Supple. Trachea midline CHEST/LUNGS: There is no respiratory distress noted. HEART/CARDIOVASCULAR: Regular. There is no tachycardia. ABDOMEN: Abdomen is soft, nontender. Patient has normal bowel sounds. There is no abdominal distention. SKIN: There is no rash. There is no edema. There is no diaphoresis. NEURO: The patient is awake, alert, and oriented. The patient is cooperative. The patient has normal speech MUSCULOSKELETAL: There is no evidence of acute injury. ED Course Vital Signs 09/28/17 09/28/17 09/28/17 12:18 13:52 13:56 Temperature 98.2 F Pulse Rate 83 90 85 Respiratory 22 16 16 Rate Blood Pressure 224/106 Blood Pressure 224/109 [Right] O2 Sat by Pulse 97 100 Oximetry 09/28/17 09/28/17 09/28/17 14:00 14:15 14:16 Temperature Pulse Rate 86 86 Respiratory 11 L 16 12 Rate Blood Pressure 224/109 221/110 Blood Pressure [Right] O2 Sat by Pulse 99 100 Oximetry 09/28/17 09/28/17 09/28/17 14:30 14:58 15:00 Temperature Pulse Rate 82 84 85 Respiratory 17 12 16 Rate Blood Pressure 221/110 216/98 204/102 Blood Pressure [Right] O2 Sat by Pulse 100 100 100 Oximetry 09/28/17 09/28/17 09/28/17 15:01 15:16 15:30 Temperature Pulse Rate 84 84 85 Respiratory 15 11 L 15 Rate Blood Pressure 159/83 163/91 Blood Pressure 199/102 [Right] O2 Sat by Pulse 100 100 100 Oximetry 09/28/17 09/28/17 09/28/17 15:46 16:00 16:23 Temperature Pulse Rate 84 83 83 Respiratory 16 15 Rate Blood Pressure 163/76 168/76 Blood Pressure [Right] O2 Sat by Pulse Oximetry - Consultations Consultation #1: 09/28/17 17:16 Nephrology paged 09/28/17 17:[address] Crandall. States chemistries including troponin are unremarkable. Recommendations increase in patient's clonidine to 0.4 mg patch 09/28/17 18:[address] Crandall. Recommends instead of increasing clonidine to add hydralazine 50 mg 3 times a day Consultation #2: 09/28/17 17:29 [facility]term called - spoke with the nursing forklift supervisor Radha- states patient is currently on clonidine patch 0.3 mg ED Medical Decision Making - Lab Data Result diagrams: 09/28/17 14:33 09/28/17 14:33 Laboratory Tests 09/28/17 09/28/17 09/28/17 14:33 14:33 14:33 WBC 10.5 RBC 3.32 L Hgb 10.0 L Hct 30.5 MCV 92 MCH 30 MCHC 33 RDW 15.0 Plt Count 329 Lymph % (Auto) 13.6 [place] % (Auto) 6.7 Eos % (Auto) 3.3 Baso % (Auto) 0.5 Lymph # 1.4 [place] # 0.7 Eos # 0.3 Baso # 0.1 Seg Neutrophils % 75.9 H Seg Neutrophils # 7.9 H PT 13.3 INR 0.96 APTT 34.5 Thrombin Time Sodium 142 Potassium 4.0 Chloride 103.5 Carbon Dioxide 24 Anion Gap 19 BUN 32 H Creatinine 4.0 H Estimated GFR 14 BUN/Creatinine Ratio 8 Glucose 144 H Calcium 8.8 Troponin T 0.107 H* Triglycerides 158 H Cholesterol 129 LDL Cholesterol Direct 54 HDL Cholesterol 44 Cholesterol/HDL Ratio 2.93 09/28/17 14:33 WBC RBC Hgb Hct MCV MCH MCHC RDW Plt Count Lymph % (Auto) [place] % (Auto) Eos % (Auto) Baso % (Auto) Lymph # [place] # Eos # Baso # Seg Neutrophils % Seg Neutrophils # PT INR APTT Thrombin Time 16.2 Sodium Potassium Chloride Carbon Dioxide Anion Gap BUN Creatinine Estimated GFR BUN/Creatinine Ratio Glucose Calcium Troponin T Triglycerides Cholesterol LDL Cholesterol Direct HDL Cholesterol Cholesterol/HDL Ratio - EKG Data -: EKG Interpreted by Me EKG shows normal: sinus rhythm Rate: normal - EKG Data When compared to previous EKG there are: no significant change Interpretation: unchanged when compared t (08/22/2017), nonspecific ST-T wave juwan - Radiology Data Radiology results: report reviewed (CT head), image reviewed (CT head) CT HEAD WITHOUT CONTRAST: HISTORY: Neurological deficit. TECHNIQUE: Sequential CT images without contrast. FINDINGS: Images obtained show bilateral prominence of the sulci and ventricles. There are no abnormal intra- or extra-axial blood or fluid collections. There are no focal masses or evidence of mass effect. The dunn white matter differentiation appears within normal limits. Regions of periventricular decreased attenuation are consistent with microangiopathic ischemic disease. 1 cm chronic focal infarct in the right brooks radiata is noted. Chronic lacunar infarct in the right meng is also noted. The posterior fossa structures including the fourth ventricle, cerebellum, and brainstem appear normal. IMPRESSION: Evidence of atrophy and microangiopathic ischemic disease. Chronic focal infarcts as described. No acute intracranial process noted. No significant change since 08/22/17. Transcribed By: TTR Dictated By: RICARDO GAYLE JR, MD Electronically Authenticated By: RICARDO GAYLE JR, MD Signed Date/Time: 09/28/17 152 DD/ 152 TD/TT: 09/28/17 152 - Differential Diagnosis hypertension Critical care attestation.: If time is entered above; I have spent that time in minutes in the direct care of this critically ill patient, excluding procedure time. ED Disposition Clinical Impression: Hypertension Disposition: DC-01 TO HOME OR SELFCARE Is pt being admited?: No Does the pt Need Aspirin: No Condition: Stable Instructions: Hypertension (ED) Additional Instructions: Return to the emergency department immediately should you develop worsening symptoms, fever, inability to tolerate food or liquid or any other concerns. Prescriptions: Hydralazine HCl 50 mg PO TID #90 tablet Referrals: PAULINA PIERSON MD [Primary Care Provider] - 3-5 Days Time of Disposition: 17:31
[2017-09-29 02:22] VITALS: BP 160/75
== END 2017-09-29 01:40 | disposition home or self-care (01) ==
LOC: ED 13:28
DX: I10 Essential (primary) hypertension (principal); E11.9 Type 2 diabetes mellitus without complications
CPT/HCPCS: 36415; 70450; 80048; 80061; 84484; 85025; 85610; 85670; 85730; 93005; 93010

== ENCOUNTER 2017-11-02 14:37 | Inpatient (IN) | payer MEDICARE, MEDICAID ==
[2017-11-02 16:07] LABS: Hematocrit 32.4 % (30.3-42.9); Mean Corpuscular HGB Conc 31 % (30-34); Mean Corpuscular Hemoglobin 27 pg (28-32); Mean Corpuscular Volume 87 fl (79-97); Platelet Count 217 K/mm3 (140-440); Red Blood Count 3.73 M/mm3 (3.65-5.03); Red Cell Distribution Width 16.7 % (13.2-15.2)
--- NOTE | 2017-11-02 16:24 | Emergency Department Report ---
HPI - General Chief Complaint: Altered Mental Status Time Seen by Provider: 11/02/17 15:38 - HPI HPI: This is a 67-year-old Afro-[place] female presents to the emergency department via EMS from the dialysis center after the patient became hypotensive and bradycardic while being dialyzed. She was given a 500 mL bolus. EMS found the patient to be normotensive. She has a history of CVA, diabetes, hypertension, chronic kidney disease. The patient is currently nonverbal and it is unknown whether this is her baseline. She follows some commands but is a poor historian. The patient's daughter later came by bedside and says that the patient has not been eating or drinking, and has been nonverbal, over the past 3 weeks. She says that she has been approached by a previous physician, possibly from the [facility] , regarding hospice versus PEG tube decisions. ED Past Medical Hx - Past Medical History Previous Medical History?: Yes Hx Hypertension: Yes Hx CVA: Yes Hx Congestive Heart Failure: No Hx Diabetes: Yes Hx Renal Disease: Yes (kidney insufficiency) Hx Asthma: No Hx COPD: No - Surgical History Past Surgical History?: Yes Additional Surgical History: left amputee. G-tube - Social History Smoking Status: Unknown if ever smoked - Medications Home Medications: Home Medications Medication Instructions Recorded Confirmed Last Taken Type Acetaminophen [Acetaminophen ER 650 mg PO Q8HR PRN 04/13/17 08/22/17 Unknown History TAB] Magnesium Hydroxide [Milk of 30 ml PO Q72HR PRN 04/13/17 08/22/17 Unknown History Magnesia] cloNIDine [Clonidine] 1 each TD QWEEK 04/13/17 08/22/17 Unknown History traMADol [Ultram 50 MG tab] 50 mg PO Q8H PRN 04/13/17 08/22/17 Unknown History Aspirin EC [Ecotrin] 325 mg PO DAILY 08/22/17 08/22/17 Unknown History Docusate Sodium [Colace CAP] 100 mg PO BID 08/22/17 08/22/17 Unknown History Ranitidine HCl [Zantac 300 MG TAB] 300 mg PO BID 08/22/17 08/22/17 Unknown History Sennosides [Vegetable Laxative] 17.2 mg PO HS 08/22/17 08/22/17 Unknown History ALBUTEROL NEB's [Proventil 0.083% 2.5 mg IH Q4HRT PRN #50 nebu 09/02/17 Unknown Rx NEBS] AtorvaSTATin [Lipitor] 40 mg PO QHS #30 tablet 09/02/17 Unknown Rx Hydrochlorothiazide [HCTZ] 25 mg PO QAM #30 tablet 09/02/17 Unknown Rx Lisinopril [Zestril] 40 mg PO QAM #30 tablet 09/02/17 Unknown Rx Metoprolol Xl [Metoprolol 50 mg PO BID #60 tablet 09/02/17 Unknown Rx SUCCINATE ER TAB] Pantoprazole [Protonix TAB] 40 mg PO QAM #30 tablet 09/02/17 Unknown Rx Sertraline [Zoloft] 50 mg PO HS #30 tablet 09/02/17 Unknown Rx Tamsulosin [Flomax] 0.4 mg PO QAM #30 capsule 09/02/17 Unknown Rx amLODIPine [Norvasc] 10 mg PO QAM #30 tablet 09/02/17 Unknown Rx oxyCODONE /ACETAMINOPHEN [Percocet 1 tab PO Q6H PRN #30 tablet 09/02/17 Unknown Rx 5/325 mg] Hydralazine HCl 50 mg PO TID #90 tablet 09/28/17 Unknown Rx ED Review of Systems ROS: Stated complaint: AMS/HYPOTENSION DURING DIALYSIS Other details as noted in HPI Comment: Unobtainable due to pts medical conditions Physical Exam - Physical Exam Vital Signs: Vital Signs 11/02/17 14:57 Temperature 97.6 F Pulse Rate 90 Respiratory 14 Rate Blood Pressure 135/70 O2 Sat by Pulse 98 Oximetry Physical Exam: GENERAL: Patient is ill-appearing. HENT: Normocephalic. Atraumatic. Patient has moist mucous membranes. EYES: Extraocular motions are intact. Pupils equal reactive to light bilaterally. NECK: Supple. Trachea is midline. CHEST/LUNGS: Clear to auscultation. There is no respiratory distress noted. HEART/CARDIOVASCULAR: Regular. There is no tachycardia. There is no murmur. ABDOMEN: Abdomen is soft, nontender. Patient has normal bowel sounds. There is no abdominal distention. SKIN: Skin is warm and dry. NEURO: Patient is nonverbal. She follows some commands. Withdraws from painful stimuli. MUSCULOSKELETAL: There is no obvious deformity. Chronic left above-knee amputation. There is no evidence of acute injury. ED Course Vital Signs 11/02/17 14:57 Temperature 97.6 F Pulse Rate 90 Respiratory 14 Rate Blood Pressure 135/70 O2 Sat by Pulse 98 Oximetry - Consultations Consultation #1: Spoke to the tobacco curer systems management consultant, Dr. Terrell, who took a look at the EKG and feels that is consistent with LVH and not a acute ST elevation SC but is happy to see the patient as a consult. 11/02/17 19:52 ED Medical Decision Making - Lab Data Result diagrams: 11/02/17 15:28 11/02/17 16:15 - EKG Data -: EKG Interpreted by Me EKG shows normal: sinus rhythm, axis, intervals, QRS complexes (LVH, Q waves to the septal leads), ST-T waves (there is some early repolarization to the anterior leads, J-point elevation to lead V5. Mild ST depression to aVR) Rate: normal - EKG Data When compared to previous EKG there are: no significant change Interpretation: unchanged when compared t (09/30/17) Critical Care Time: No Critical care attestation.: If time is entered above; I have spent that time in minutes in the direct care of this critically ill patient, excluding procedure time. ED Disposition Clinical Impression: Debility Chronic renal insufficiency Qualifiers: Chronic kidney disease stage: unspecified stage Qualified Code(s): N18.9 - Chronic kidney disease, unspecified Altered mental status Qualifiers: Altered mental status type: unspecified Qualified Code(s): R41.82 - Altered mental status, unspecified Disposition: DC-09 OP ADMIT IP TO THIS HOSP Is pt being admited?: Yes Condition: Fair Referrals: PRIMARY CARE, [Primary Care Provider] - 3-5 Days Time of Disposition: 19:55
[2017-11-02 16:48] LABS: Basophils % (Manual) 0 % (0.0-1.8); Eosinophils % (Manual) 0 % (0.0-4.3); Total Cells Counted 100
[2017-11-02 16:49] LABS: Anisocytosis 1+; Hypochromasia Few; Platelet Estimate Cons; Target Cells Rare
[2017-11-02 16:57] LABS: Albumin 1.9 g/dL (3.9-5); Calcium 7.9 mg/dL (8.4-10.2)
[2017-11-02 17:11] LABS: Amorphous Crystals,Urine Few; Bacteria,Urine 1+ /HPF (Negative); Bilirubin,Urine SM (Negative); Blood,Urine SM (Negative); Color,Urine Amber (Yellow); Mucus,Urine FEW /HPF; Nitrite,Urine NEG (Negative)
[2017-11-02 17:14] LABS: Protein,Urine >500 mg/dL (Negative)
[2017-11-02 17:16] LABS: Benzodiazepines Screen,Urine PRESUMPTIVE NEGATIVE; Cannabinoid Screen,Urine PRESUMPTIVE NEGATIVE; Cocaine Screen,Urine PRESUMPTIVE NEGATIVE; Methadone Screen,Urine PRESUMPTIVE NEGATIVE; Opiate Screen,Urine PRESUMPTIVE NEGATIVE
[2017-11-02 17:18] LABS: Ictotest,Urine Negative (Negative)
--- NOTE | 2017-11-02 17:25 | Cat Scan Report ---
FINAL REPORT PROCEDURE: CT HEAD/BRAIN WO CON TECHNIQUE: Computerized tomography of the head was performed without contrast material. HISTORY: AMS COMPARISON: No prior studies are available for comparison. FINDINGS: Brain: There is no evidence of intracranial hemorrhage. No parenchymal hemorrhage is seen. No mass lesions or mass effect is identified. No abnormal extra-axial fluid collections or masses are seen. Several old lacunar infarcts again visualized in the right basal ganglia. There also appears to be a stable old lacunar infarct in the right cerebral peduncle. This is unchanged. Gliosis appears to be present fairly symmetrically in the anterior aspect of both external capsules. There is some decreased density seen in the periventricular white matter without mass effect. This is more prominent on the right than the left although does not exhibit any mass effect consistent with gliosis probably on the basis of microvascular disease or white matter changes of aging. Ventricles: The ventricles, sulcal pattern and fissures are prominent consistent with atrophy. Bones: No evidence of acute fracture. Paranasal sinuses: There is minimal patchy mucosal disease in a few of the ethmoid air cells. 13 millimeter area of intermediate density seen laterally in the right frontal sinus not seen on the prior study suggesting mucosal thickening or possibly a mucous retention cyst. The frontal sinuses otherwise are clear. Sphenoid sinuses are now clear. Mastoid air cells: New air-fluid levels visualized in several of the mastoid air cells bilaterally inferiorly. IMPRESSION: Stable CT scan of the brain showing evidence of mild atrophy and moderate gliosis as well as old lacunar infarcts as described. No acute intracranial abnormalities are identified. Mild paranasal sinus disease as described. New air-fluid levels seen and several of the mastoid air cells inferiorly bilaterally suggesting acute mastoiditis.
[2017-11-02 17:39] LABS: Amphetamine Screen,Urine PRESUMPTIVE POSITIVE
--- NOTE | 2017-11-02 20:28 | History and Physical Report ---
History of Present Illness Date of examination: 11/02/17 Date of admission: 11/02/17 Chief complaint: CC Unable to talk and eat 2 weeks Low BP History of present illness: - HPI HPI: This is a 67-year-old Afro-Malagasy female presents to the emergency department via EMS from the dialysis center after the patient became hypotensive and bradycardic while being dialyzed. She was given a 500 mL bolus. EMS found the patient to be normotensive. She has a history of CVA, diabetes, hypertension , chronic kidney disease. The patient is currently nonverbal and Daughter says its been like that for 2 weeks and also not eating any for 3 weeks. and it is unknown whether this is her baseline. She follows some commands but is a poor historian. The patient's daughter later came by bedside and says that the patient has not been eating or drinking, and has been nonverbal, over the past 3 weeks. She says that she has been approached by [facility] physician, possibly regarding hospice versus PEG tube decisions. 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 and PAD - Social History Smoking Status: Unknown if ever smoked Fam Hx HTN - Medications Home Medications: Home Medications Medication Instructions Recorded Confirmed Last Taken Type Acetaminophen [Acetaminophen ER 650 mg PO Q8HR PRN 04/13/17 08/22/17 Unknown History TAB] Magnesium Hydroxide [Milk of 30 ml PO Q72HR PRN 04/13/17 08/22/17 Unknown History Magnesia] cloNIDine [Clonidine] 1 each TD QWEEK 04/13/17 08/22/17 Unknown History traMADol [Ultram 50 MG tab] 50 mg PO Q8H PRN 04/13/17 08/22/17 Unknown History Aspirin EC [Ecotrin] 325 mg PO DAILY 08/22/17 08/22/17 Unknown History Docusate Sodium [Colace CAP] 100 mg PO BID 08/22/17 08/22/17 Unknown History Ranitidine HCl [Zantac 300 MG TAB] 300 mg PO BID 08/22/17 08/22/17 Unknown History Sennosides [Vegetable Laxative] 17.2 mg PO HS 08/22/17 08/22/17 Unknown History ALBUTEROL NEB's [Proventil 0.083% 2.5 mg IH Q4HRT PRN #50 nebu 09/02/17 Unknown Rx NEBS] AtorvaSTATin [Lipitor] 40 mg PO QHS #30 tablet 09/02/17 Unknown Rx Hydrochlorothiazide [HCTZ] 25 mg PO QAM #30 tablet 09/02/17 Unknown Rx Lisinopril [Zestril] 40 mg PO QAM #30 tablet 09/02/17 Unknown Rx Metoprolol Xl [Metoprolol 50 mg PO BID #60 tablet 09/02/17 Unknown Rx SUCCINATE ER TAB] Pantoprazole [Protonix TAB] 40 mg PO QAM #30 tablet 09/02/17 Unknown Rx Sertraline [Zoloft] 50 mg PO HS #30 tablet 09/02/17 Unknown Rx Tamsulosin [Flomax] 0.4 mg PO QAM #30 capsule 09/02/17 Unknown Rx amLODIPine [Norvasc] 10 mg PO QAM #30 tablet 09/02/17 Unknown Rx oxyCODONE /ACETAMINOPHEN [Percocet 1 tab PO Q6H PRN #30 tablet 09/02/17 Unknown Rx 5/325 mg] Hydralazine HCl 50 mg PO TID #90 tablet 09/28/17 Unknown Rx Review of Systems ROS: Stated complaint: AMS/HYPOTENSION DURING DIALYSIS Other details as noted in HPI Comment: Unobtainable due to pts medical conditions Medications and Allergies Allergies Allergy/AdvReac Type Severity Reaction Status Date / Time guaifenesin [From Robitussin] Allergy Unknown Verified 04/19/17 21:22 Home Medications Medication Instructions Recorded Confirmed Last Taken Type Acetaminophen [Acetaminophen ER 650 mg PO Q8HR PRN 04/13/17 11/03/17 Unknown History TAB] Magnesium Hydroxide [Milk of 30 ml PO Q72HR PRN 04/13/17 11/03/17 Unknown History Magnesia] cloNIDine [Clonidine] 1 each TD QWEEK 04/13/17 11/03/17 Unknown History traMADol [Ultram 50 MG tab] 50 mg PO Q8H PRN 04/13/17 11/03/17 Unknown History Aspirin EC [Ecotrin] 325 mg PO DAILY 08/22/17 11/03/17 Unknown History Docusate Sodium [Colace CAP] 100 mg PO BID 08/22/17 11/03/17 Unknown History Ranitidine HCl [Zantac 300 MG TAB] 300 mg PO BID 08/22/17 11/03/17 Unknown History Sennosides [Vegetable Laxative] 17.2 mg PO HS 08/22/17 11/03/17 Unknown History ALBUTEROL NEB's [Proventil 0.083% 2.5 mg IH Q4HRT PRN #50 nebu 09/02/17 Unknown Rx NEBS] AtorvaSTATin [Lipitor] 40 mg PO QHS #30 tablet 09/02/17 11/03/17 Unknown Rx Hydrochlorothiazide [HCTZ] 25 mg PO QAM #30 tablet 09/02/17 11/03/17 Unknown Rx Lisinopril [Zestril] 40 mg PO QAM #30 tablet 09/02/17 11/03/17 Unknown Rx Metoprolol Xl [Metoprolol 50 mg PO BID #60 tablet 09/02/17 11/03/17 Unknown Rx SUCCINATE ER TAB] Pantoprazole [Protonix TAB] 40 mg PO QAM #30 tablet 09/02/17 11/03/17 Unknown Rx Sertraline [Zoloft] 50 mg PO HS #30 tablet 09/02/17 11/03/17 Unknown Rx Tamsulosin [Flomax] 0.4 mg PO QAM #30 capsule 09/02/17 11/03/17 Unknown Rx amLODIPine [Norvasc] 10 mg PO QAM #30 tablet 09/02/17 11/03/17 Unknown Rx oxyCODONE /ACETAMINOPHEN [Percocet 1 tab PO Q6H PRN #30 tablet 09/02/17 Unknown Rx 5/325 mg] Hydralazine HCl 50 mg PO TID #90 tablet 09/28/17 11/03/17 Unknown Rx Exam - Constitutional Vitals: Temp Pulse Resp BP Pulse Ox 97.6 F 73 15 144/76 100 11/02/17 14:57 11/02/17 18:04 11/02/17 16:46 11/02/17 18:04 11/02/17 16:46 General appearance: Present: no acute distress, well-nourished - EENT Eyes: Present: PERRL ENT: hearing intact, clear oral mucosa - Neck Neck: Present: supple, normal ROM - Respiratory Respiratory effort: normal Respiratory: bilateral: CTA - Cardiovascular Heart rate: 78 Rhythm: regular Heart Sounds: Present: S1 & S2. Absent: rub, click - Extremities Extremities: no ischemia, pulses symmetrical, No edema, abnormal (L AKA) Peripheral Pulses: abnormal - Abdominal General gastrointestinal: Present: soft, non-tender, non-distended, normal bowel sounds Female genitourinary: Present: normal - Rectal Rectal Exam: deferred - Integumentary Integumentary: Present: clear, warm, dry - Musculoskeletal Musculoskeletal: generalized weakness - Psychiatric Psychiatric: depressed, other (Non verbal) - Neurologic Neurologic: CNII-XII intact, moves all extremities Results - Labs CBC & Chem 7: 11/03/17 04:08 11/03/17 04:08 Labs: Laboratory Last Values WBC 20.8 K/mm3 (4.5-11.0) H 11/02/17 15:28 RBC 3.73 M/mm3 (3.65-5.03) 11/02/17 15:28 Hgb 10.0 gm/dl (10.1-14.3) L 11/02/17 15:28 Hct 32.4 % (30.3-42.9) 11/02/17 15:28 MCV 87 fl (79-97) 11/02/17 15:28 MCH 27 pg (28-32) L 11/02/17 15:28 MCHC 31 % (30-34) 11/02/17 15:28 RDW 16.7 % (13.2-15.2) H 11/02/17 15:28 Plt Count 217 K/mm3 (140-440) 11/02/17 15:28 Add Manual Diff Complete 11/02/17 15:28 Total Counted 100 11/02/17 15:28 Seg Neuts % (Manual) 94.0 % (40.0-70.0) H 11/02/17 15:28 Band Neutrophils % 0 % 11/02/17 15:28 Lymphocytes % (Manual) 3.0 % (13.4-35.0) L 11/02/17 15:28 Reactive Lymphs % (Man) 0 % 11/02/17 15:28 Monocytes % (Manual) 3.0 % (0.0-7.3) 11/02/17 15:28 Eosinophils % (Manual) 0 % (0.0-4.3) 11/02/17 15:28 Basophils % (Manual) 0 % (0.0-1.8) 11/02/17 15:28 Metamyelocytes % 0 % 11/02/17 15:28 Myelocytes % 0 % 11/02/17 15:28 Promyelocytes % 0 % 11/02/17 15:28 Blast Cells % 0 % 11/02/17 15:28 Nucleated RBC % Not Reportable 11/02/17 15:28 Seg Neutrophils # Man 19.6 K/mm3 (1.8-7.7) H 11/02/17 15:28 Band Neutrophils # 0.0 K/mm3 11/02/17 15:28 Lymphocytes # (Manual) 0.6 K/mm3 (1.2-5.4) L 11/02/17 15:28 Abs React Lymphs (Man) 0.0 K/mm3 11/02/17 15:28 Monocytes # (Manual) 0.6 K/mm3 (0.0-0.8) 11/02/17 15:28 Eosinophils # (Manual) 0.0 K/mm3 (0.0-0.4) 11/02/17 15:28 Basophils # (Manual) 0.0 K/mm3 (0.0-0.1) 11/02/17 15:28 Metamyelocytes # 0.0 K/mm3 11/02/17 15:28 Myelocytes # 0.0 K/mm3 11/02/17 15:28 Promyelocytes # 0.0 K/mm3 11/02/17 15:28 Blast Cells # 0.0 K/mm3 11/02/17 15:28 WBC Morphology Not Reportable 11/02/17 15:28 Hypersegmented Neuts Not Reportable 11/02/17 15:28 Hyposegmented Neuts Not Reportable 11/02/17 15:28 Hypogranular Neuts Not Reportable 11/02/17 15:28 Smudge Cells Not Reportable 11/02/17 15:28 Toxic Granulation Not Reportable 11/02/17 15:28 Toxic Vacuolation Not Reportable 11/02/17 15:28 Dohle Bodies Not Reportable 11/02/17 15:28 Pelger-Huet Anomaly Not Reportable 11/02/17 15:28 Lupis Rods Not Reportable 11/02/17 15:28 Platelet Estimate Cons 11/02/17 15:28 Clumped Platelets Not Reportable 11/02/17 15:28 Plt Clumps, EDTA Not Reportable 11/02/17 15:28 Large Platelets Not Reportable 11/02/17 15:28 Giant Platelets Not Reportable 11/02/17 15:28 Platelet Satelliting Not Reportable 11/02/17 15:28 Plt Morphology Comment Not Reportable 11/02/17 15:28 RBC Morphology Not Reportable 11/02/17 15:28 Dimorphic RBCs Not Reportable 11/02/17 15:28 Polychromasia Not Reportable 11/02/17 15:28 Hypochromasia Few 11/02/17 15:28 Poikilocytosis Not Reportable 11/02/17 15:28 Anisocytosis 1+ 11/02/17 15:28 Microcytosis Not Reportable 11/02/17 15:28 Macrocytosis Not Reportable 11/02/17 15:28 Spherocytes Not Reportable 11/02/17 15:28 Pappenheimer Bodies Not Reportable 11/02/17 15:28 Sickle Cells Not Reportable 11/02/17 15:28 Target Cells Rare 11/02/17 15:28 Tear Drop Cells Not Reportable 11/02/17 15:28 Ovalocytes Not Reportable 11/02/17 15:28 Helmet Cells Not Reportable 11/02/17 15:28 Fowler-[place] Bodies Not Reportable 11/02/17 15:28 Orchard Rings Not Reportable 11/02/17 15:28 Reji Cells Not Reportable 11/02/17 15:28 Bite Cells Not Reportable 11/02/17 15:28 Crenated Cell Not Reportable 11/02/17 15:28 Elliptocytes Not Reportable 11/02/17 15:28 Acanthocytes (Spur) Not Reportable 11/02/17 15:28 Rouleaux Not Reportable 11/02/17 15:28 Hemoglobin C Crystals Not Reportable 11/02/17 15:28 Schistocytes Not Reportable 11/02/17 15:28 Malaria parasites Not Reportable 11/02/17 15:28 Tre Bodies Not Reportable 11/02/17 15:28 Hem Pathologist Commnt No 11/02/17 15:28 Sodium 137 mmol/L (137-145) 11/02/17 16:15 Potassium 3.5 mmol/L (3.6-5.0) L 11/02/17 16:15 Chloride 97.1 mmol/L (98-107) L 11/02/17 16:15 Carbon Dioxide 26 mmol/L (22-30) 11/02/17 16:15 Anion Gap 17 mmol/L 11/02/17 16:15 BUN 24 mg/dL (7-17) H 11/02/17 16:15 Creatinine 3.2 mg/dL (0.7-1.2) H 11/02/17 16:15 Estimated GFR 18 ml/min 11/02/17 16:15 BUN/Creatinine Ratio 8 % 11/02/17 16:15 Glucose 166 mg/dL (65-100) H 11/02/17 16:15 POC Glucose 192 (70-105) H 11/02/17 16:45 Calcium 7.9 mg/dL (8.4-10.2) L 11/02/17 16:15 Total Bilirubin 0.30 mg/dL (0.1-1.2) 11/02/17 16:15 AST 15 units/L (5-40) 11/02/17 16:15 ALT 10 units/L (7-56) 11/02/17 16:15 Alkaline Phosphatase 110 units/L (35-129) 11/02/17 16:15 Ammonia 24.0 umol/L (25-60) L 11/02/17 16:15 Total Protein 7.1 g/dL (6.3-8.2) 11/02/17 16:15 Albumin 1.9 g/dL (3.9-5) L 11/02/17 16:15 Albumin/Globulin Ratio 0.4 % 11/02/17 16:15 TSH 0.357 mlU/mL (0.270-4.200) 11/02/17 15:28 Urine Color Lyssa (Yellow) 11/02/17 16:48 Urine Turbidity Clear (Clear) 11/02/17 16:48 Urine pH 5.0 (5.0-7.0) 11/02/17 16:48 Ur Specific Whitney 1.024 (1.003-1.030) 11/02/17 16:48 Urine Protein >500 mg/dL (Negative) 11/02/17 16:48 Urine Glucose (UA) Neg mg/dL (Negative) 11/02/17 16:48 Urine Ketones Tr mg/dL (Negative) 11/02/17 16:48 Urine Blood Sm (Negative) 11/02/17 16:48 Urine Nitrite Neg (Negative) 11/02/17 16:48 Urine Bilirubin Sm (Negative) 11/02/17 16:48 Urine Ictotest Negative (Negative) 11/02/17 16:48 Urine Urobilinogen 2.0 mg/dL (<2.0) 11/02/17 16:48 Ur Leukocyte Esterase Sm (Negative) 11/02/17 16:48 Urine WBC (Auto) 6.0 /HPF (0.0-6.0) 11/02/17 16:48 Urine RBC (Auto) 4.0 /HPF (0.0-6.0) 11/02/17 16:48 U Epithel Cells (Auto) < 1.0 /HPF (0-13.0) 11/02/17 16:48 Urine Bacteria (Auto) 1+ /HPF (Negative) 11/02/17 16:48 Amorphous Crystals Few 11/02/17 16:48 Urine Mucus Few /HPF 11/02/17 16:48 Urine Opiates Screen Presumptive negative 11/02/17 16:48 Urine Methadone Screen Presumptive negative 11/02/17 16:48 Ur Barbiturates Screen Presumptive negative 11/02/17 16:48 Ur Phencyclidine Scrn Presumptive negative 11/02/17 16:48 Ur Amphetamines Screen Presumptive positive 11/02/17 16:48 U Benzodiazepines Scrn Presumptive negative 11/02/17 16:48 Urine Cocaine Screen Presumptive negative 11/02/17 16:48 U Marijuana (THC) Screen Presumptive negative 11/02/17 16:48 Drugs of Abuse Note Disclamer 11/02/17 16:48 Plasma/Serum Alcohol < 0.01 gm% (0-0.07) 11/02/17 15:28 - Imaging and Cardiology EKG: report reviewed CT Scan - head: report reviewed (NAF) Assessment and Plan Advance Directives: Yes (Full code) VTE prophylaxis?: Chemical Plan of care discussed with patient/family: Yes - Patient Problems (1) Acute CVA (cerebrovascular accident) Current Visit: Yes Status: Acute Plan to address problem: Patient has been aphasic since 3 weeks which is apparentlyu new.May have stroke.Stroke w/u initiated. Poor PO intake. Staring at me when I was trying to talk to her. MRI/MRA/Echo and CDS ordered.Neuro consult ordered (2) Leukocytosis Current Visit: Yes Status: Acute Qualifiers: Leukocytosis type: unspecified Qualified Code(s): D72.829 - Elevated white blood cell count, unspecified Plan to address problem: Etio unclear Started on Rocephin empirically (3) Debility Current Visit: Yes Status: Chronic Plan to address problem: pt/ot (4) Aphasia as late effect of cerebrovascular accident Current Visit: Yes Status: Acute Plan to address problem: Will defer to Neurology (5) Poor appetite Current Visit: Yes Status: Acute Plan to address problem: POOR PO intake. Needs peg tube Dysphagia? (6) ESRD on hemodialysis Current Visit: Yes Status: Chronic Plan to address problem: Cont HD (7) HTN (hypertension) Current Visit: Yes Status: Chronic Qualifiers: Hypertension type: essential hypertension Qualified Code(s): I10 - Essential (primary) hypertension Plan to address problem: Was hypotensive which corrected with 500 ml of fluids (8) GERD (gastroesophageal reflux disease) Current Visit: Yes Status: Chronic Qualifiers: Esophagitis presence: without esophagitis Qualified Code(s): K21.9 - Gastro -esophageal reflux disease without esophagitis Plan to address problem: cont ppi's (9) HLD (hyperlipidemia) Current Visit: Yes Status: Chronic Qualifiers: Hyperlipidemia type: mixed hyperlipidemia Qualified Code(s): E78.2 - Mixed hyperlipidemia Plan to address problem: Cont statins (10) COPD (chronic obstructive pulmonary disease) Current Visit: Yes Status: Chronic Qualifiers: COPD type: unspecified COPD Qualified Code(s): J44.9 - Chronic obstructive pulmonary disease, unspecified Plan to address problem: Cont Bronchodilators PRN (11) Depression Current Visit: Yes Status: Chronic Qualifiers: Depression Type: unspecified Qualified Code(s): F32.9 - Major depressive disorder, single episode, unspecified Plan to address problem: Cont Antidepressants (12) DVT prophylaxis Current Visit: No Status: Acute Plan to address problem: on Heparin
[2017-11-02] MEDS ORDERED: TYLENOL PO PRN (20:29)
[2017-11-02] MEDS ORDERED: DULCOLAX PR PRN (20:29)
[2017-11-02] MEDS ORDERED: ZOFRAN IV PRN (20:29)
[2017-11-02] MEDS ORDERED: MORPHINE IV PRN (20:29)
[2017-11-02] MEDS ORDERED: MILK OF MAGNESIA PO PRN ×2 (20:29→20:58)
[2017-11-02] MEDS ORDERED: PROVENTIL IH PRN (20:58)
[2017-11-02] MEDS ORDERED: ULTRAM PO PRN (20:58)
[2017-11-02] MEDS ORDERED: PERCOCET 5/325 PO PRN (20:58)
[2017-11-02] MEDS ORDERED: NON-FORMULARY (Acetaminophen [Acetaminophen Er Tab] 650 MG) PO PRN (20:58)
[2017-11-02] MEDS ORDERED: D5NS 1,000 ML IV SCH (21:00)
[2017-11-03 04:42] LABS: Basophils # (Auto) 0.1 K/mm3 (0.0-0.1); Basophils % (Auto) 0.4 % (0.0-1.8); Eosinophils % (Auto) 0.2 % (0.0-4.3); Hematocrit 26.3 % (30.3-42.9); Hemoglobin 7.9 gm/dl (10.1-14.3); Lymphocytes # (Auto) 1.2 K/mm3 (1.2-5.4); Lymphocytes % (Auto) 6.4 % (13.4-35.0); Mean Corpuscular HGB Conc 30 % (30-34); Mean Corpuscular Hemoglobin 26 pg (28-32); Mean Corpuscular Volume 87 fl (79-97); Monocytes % (Auto) 5.6 % (0.0-7.3); Platelet Count 233 K/mm3 (140-440); Red Blood Count 3.02 M/mm3 (3.65-5.03)
[2017-11-03 04:49] LABS: Albumin 2.1 g/dL (3.9-5); Calcium 8.3 mg/dL (8.4-10.2)
[2017-11-03] MEDS: COLACE PO SCH ×3 (05:59→22:32)
[2017-11-03] MEDS: TOPROL XL PO SCH ×3 (06:01→22:33)
[2017-11-03] MEDS: ZOLOFT PO SCH ×2 (06:02→22:34)
[2017-11-03] MEDS: APRESOLINE PO SCH ×3 (07:56→22:33)
[2017-11-03] MEDS ORDERED: NON-FORMULARY (Hydralazine Hcl [Hydralazine Hcl] 50 MG) PO SCH (08:00)
[2017-11-03] MEDS ORDERED: SODIUM CHLORIDE FLUSH SYRINGE 10 ML IV PRN (08:40)
[2017-11-03] MEDS: HEPARIN SUB-Q SCH ×2 (09:12→22:35)
[2017-11-03] MEDS: CATAPRES-TTS PATCH TD SCH (09:12)
[2017-11-03] MEDS: PROTONIX PO SCH (09:19)
[2017-11-03] MEDS: NORVASC PO SCH (09:19)
[2017-11-03] MEDS: ZESTRIL PO SCH (09:20)
--- NOTE | 2017-11-03 09:21 | Consultation ---
History of Present Illness - Reason for Consult Consult date: 11/03/17 end stage renal disease Medications and Allergies Allergies Allergy/AdvReac Type Severity Reaction Status Date / Time guaifenesin [From Robitussin] Allergy Unknown Verified 04/19/17 21:22 Home Medications Medication Instructions Recorded Confirmed Last Taken Type Acetaminophen [Acetaminophen ER 650 mg PO Q8HR PRN 04/13/17 11/03/17 Unknown History TAB] Magnesium Hydroxide [Milk of 30 ml PO Q72HR PRN 04/13/17 11/03/17 Unknown History Magnesia] cloNIDine [Clonidine] 1 each TD QWEEK 04/13/17 11/03/17 Unknown History traMADol [Ultram 50 MG tab] 50 mg PO Q8H PRN 04/13/17 11/03/17 Unknown History Aspirin EC [Ecotrin] 325 mg PO DAILY 08/22/17 11/03/17 Unknown History Docusate Sodium [Colace CAP] 100 mg PO BID 08/22/17 11/03/17 Unknown History Ranitidine HCl [Zantac 300 MG TAB] 300 mg PO BID 08/22/17 11/03/17 Unknown History Sennosides [Vegetable Laxative] 17.2 mg PO HS 08/22/17 11/03/17 Unknown History ALBUTEROL NEB's [Proventil 0.083% 2.5 mg IH Q4HRT PRN #50 nebu 09/02/17 Unknown Rx NEBS] AtorvaSTATin [Lipitor] 40 mg PO QHS #30 tablet 09/02/17 11/03/17 Unknown Rx Hydrochlorothiazide [HCTZ] 25 mg PO QAM #30 tablet 09/02/17 11/03/17 Unknown Rx Lisinopril [Zestril] 40 mg PO QAM #30 tablet 09/02/17 11/03/17 Unknown Rx Metoprolol Xl [Metoprolol 50 mg PO BID #60 tablet 09/02/17 11/03/17 Unknown Rx SUCCINATE ER TAB] Pantoprazole [Protonix TAB] 40 mg PO QAM #30 tablet 09/02/17 11/03/17 Unknown Rx Sertraline [Zoloft] 50 mg PO HS #30 tablet 09/02/17 11/03/17 Unknown Rx Tamsulosin [Flomax] 0.4 mg PO QAM #30 capsule 09/02/17 11/03/17 Unknown Rx amLODIPine [Norvasc] 10 mg PO QAM #30 tablet 09/02/17 11/03/17 Unknown Rx oxyCODONE /ACETAMINOPHEN [Percocet 1 tab PO Q6H PRN #30 tablet 09/02/17 Unknown Rx 5/325 mg] Hydralazine HCl 50 mg PO TID #90 tablet 09/28/17 11/03/17 Unknown Rx Active Meds: Active Medications Acetaminophen (Tylenol) 650 mg PO Q4H PRN PRN Reason: Pain MILD(1-3)/Fever >100.5/GUO Albuterol (Proventil) 2.5 mg IH Q4HRT PRN PRN Reason: Shortness Of Breath Amlodipine Besylate (Norvasc) 10 mg PO QAM [facility] Last Admin: 11/03/17 09:19 Dose: Not Given Aspirin (Ecotrin) 325 mg PO DAILY [facility] Last Admin: 11/03/17 09:19 Dose: Not Given Atorvastatin Calcium (Lipitor) 40 mg PO QHS [facility] Last Admin: 11/03/17 06:01 Dose: Not Given Bisacodyl (Dulcolax) 10 mg UT QDAY PRN PRN Reason: Constipation unrelieved by MOM Clonidine HCl (Catapres-Tts Patch) 0.3 mg TD Th [facility] Last Admin: 11/03/17 09:12 Dose: 0.3 mg Docusate Sodium (Colace) 100 mg PO BID [facility] Last Admin: 11/03/17 09:19 Dose: Not Given Heparin Sodium (Porcine) (Heparin) 5,000 unit SUB-Q Q12HR [facility] Last Admin: 11/03/17 09:12 Dose: 5,000 unit Hydralazine HCl (Apresoline) 50 mg PO TID [facility] Last Admin: 11/03/17 07:56 Dose: Not Given Dextrose/Sodium Chloride (D5ns) 1,000 mls @ 75 mls/hr IV DIRECT [facility] Ceftriaxone Sodium 1 gm/ (Sodium Chloride) 20 mls @ 20 mls/10 min IV Q24HR [facility] PRN Reason: Protocol Lisinopril (Zestril) 40 mg PO QAM [facility] Last Admin: 11/03/17 09:20 Dose: Not Given Magnesium Hydroxide (Milk Of Magnesia) 30 ml PO Q4H PRN PRN Reason: Constipation Metoprolol Succinate (Toprol Xl) 50 mg PO BID [facility] Last Admin: 11/03/17 09:20 Dose: Not Given Morphine Sulfate (Morphine) 2 mg IV Q4H PRN PRN Reason: Pain, Moderate (4-6) Ondansetron HCl (Zofran) 4 mg IV Q8H PRN PRN Reason: N/V unrelieved by Reglan Oxycodone/Acetaminophen (Percocet 5/325) 1 tab PO Q6H PRN PRN Reason: Pain Pantoprazole Sodium (Protonix) 40 mg PO QAM [facility] Last Admin: 11/03/17 09:19 Dose: Not Given Sertraline HCl (Zoloft) 50 mg PO HS [facility] Last Admin: 11/03/17 06:02 Dose: Not Given Sodium Chloride (Sodium Chloride Flush Syringe 10 Ml) 10 ml IV PRN PRN PRN Reason: LINE FLUSH Tramadol HCl (Ultram) 50 mg PO Q8H PRN PRN Reason: Pain Exam - Vital Signs Vital signs: Vital Signs Pulse Resp 94 H 12 11/02/17 14:48 11/02/17 14:48 Results - Lab Results 11/03/17 04:08 11/03/17 04:08 Most recent lab results Calcium 8.3 mg/dL (8.4-10.2) L 11/03/17 04:08
--- NOTE | 2017-11-03 09:42 | Gastroenterology Consultation ---
History of Present Illness - Reason for Consult Consult date: 11/03/17 PEG placement Requesting physician: PIPPA EZE - History of Present Illness Patient is a 67 y/o female [facility] resident with PMH of CVA, DM, HTN, ESRD , CHF, and COPD who was brought to ED from dialysis center for hypotension and bradycardia. She is currently being treated for an acute CVA and leukocytosis. On admisson family reported pt has been nonverbal with poor po intake x 3 weeks. Neuro consult is pending. GI has been consulted for PEG tube placement. This am pt was resting in bed w/o acute distress and no family at bedside. She is unable to give history due to aphasia. History obtained via chart review. According to previous hospital records, pt was nonverbal at baseline on admission in 08/2017 with a PEG tube in place. No PEG tube currently. Upon exam , abd is soft, and non-distended with scar from previous PEG noted. Nursing reports pt was able to tolerate po intake on prior admissions. Past History Past Medical History: COPD, diabetes, ESRD (on HD), heart failure, hypertension , stroke Past Surgical History: Other (previous PEG, left AKA) Social history: other ([facility] resident) Family history: hypertension Medications and Allergies Allergies Allergy/AdvReac Type Severity Reaction Status Date / Time guaifenesin [From Robitussin] Allergy Unknown Verified 04/19/17 21:22 Home Medications Medication Instructions Recorded Confirmed Last Taken Type Acetaminophen [Acetaminophen ER 650 mg PO Q8HR PRN 04/13/17 11/03/17 Unknown History TAB] Magnesium Hydroxide [Milk of 30 ml PO Q72HR PRN 04/13/17 11/03/17 Unknown History Magnesia] cloNIDine [Clonidine] 1 each TD QWEEK 04/13/17 11/03/17 Unknown History traMADol [Ultram 50 MG tab] 50 mg PO Q8H PRN 04/13/17 11/03/17 Unknown History Aspirin EC [Ecotrin] 325 mg PO DAILY 08/22/17 11/03/17 Unknown History Docusate Sodium [Colace CAP] 100 mg PO BID 08/22/17 11/03/17 Unknown History Ranitidine HCl [Zantac 300 MG TAB] 300 mg PO BID 08/22/17 11/03/17 Unknown History Sennosides [Vegetable Laxative] 17.2 mg PO HS 08/22/17 11/03/17 Unknown History ALBUTEROL NEB's [Proventil 0.083% 2.5 mg IH Q4HRT PRN #50 nebu 09/02/17 Unknown Rx NEBS] AtorvaSTATin [Lipitor] 40 mg PO QHS #30 tablet 09/02/17 11/03/17 Unknown Rx Hydrochlorothiazide [HCTZ] 25 mg PO QAM #30 tablet 09/02/17 11/03/17 Unknown Rx Lisinopril [Zestril] 40 mg PO QAM #30 tablet 09/02/17 11/03/17 Unknown Rx Metoprolol Xl [Metoprolol 50 mg PO BID #60 tablet 09/02/17 11/03/17 Unknown Rx SUCCINATE ER TAB] Pantoprazole [Protonix TAB] 40 mg PO QAM #30 tablet 09/02/17 11/03/17 Unknown Rx Sertraline [Zoloft] 50 mg PO HS #30 tablet 09/02/17 11/03/17 Unknown Rx Tamsulosin [Flomax] 0.4 mg PO QAM #30 capsule 09/02/17 11/03/17 Unknown Rx amLODIPine [Norvasc] 10 mg PO QAM #30 tablet 09/02/17 11/03/17 Unknown Rx oxyCODONE /ACETAMINOPHEN [Percocet 1 tab PO Q6H PRN #30 tablet 09/02/17 Unknown Rx 5/325 mg] Hydralazine HCl 50 mg PO TID #90 tablet 09/28/17 11/03/17 Unknown Rx Active Meds: Active Medications Acetaminophen (Tylenol) 650 mg PO Q4H PRN PRN Reason: Pain MILD(1-3)/Fever >100.5/GUO Albuterol (Proventil) 2.5 mg IH Q4HRT PRN PRN Reason: Shortness Of Breath Amlodipine Besylate (Norvasc) 10 mg PO QAM [facility] Last Admin: 11/03/17 09:19 Dose: Not Given Aspirin (Ecotrin) 325 mg PO DAILY [facility] Last Admin: 11/03/17 09:19 Dose: Not Given Atorvastatin Calcium (Lipitor) 40 mg PO QHS [facility] Last Admin: 11/03/17 06:01 Dose: Not Given Bisacodyl (Dulcolax) 10 mg [place] QDAY PRN PRN Reason: Constipation unrelieved by MOM Clonidine HCl (Catapres-Tts Patch) 0.3 mg TD Th [facility] Last Admin: 11/03/17 09:12 Dose: 0.3 mg Docusate Sodium (Colace) 100 mg PO BID [facility] Last Admin: 11/03/17 09:19 Dose: Not Given Heparin Sodium (Porcine) (Heparin) 5,000 unit SUB-Q Q12HR [facility] Last Admin: 11/03/17 09:12 Dose: 5,000 unit Hydralazine HCl (Apresoline) 50 mg PO TID [facility] Last Admin: 11/03/17 07:56 Dose: Not Given Dextrose/Sodium Chloride (D5ns) 1,000 mls @ 75 mls/hr IV DIRECT [facility] Ceftriaxone Sodium 1 gm/ (Sodium Chloride) 20 mls @ 20 mls/10 min IV Q24HR [facility] PRN Reason: Protocol Lisinopril (Zestril) 40 mg PO QAM [facility] Last Admin: 11/03/17 09:20 Dose: Not Given Magnesium Hydroxide (Milk Of Magnesia) 30 ml PO Q4H PRN PRN Reason: Constipation Metoprolol Succinate (Toprol Xl) 50 mg PO BID [facility] Last Admin: 11/03/17 09:20 Dose: Not Given Morphine Sulfate (Morphine) 2 mg IV Q4H PRN PRN Reason: Pain, Moderate (4-6) Ondansetron HCl (Zofran) 4 mg IV Q8H PRN PRN Reason: N/V unrelieved by Reglan Oxycodone/Acetaminophen (Percocet 5/325) 1 tab PO Q6H PRN PRN Reason: Pain Pantoprazole Sodium (Protonix) 40 mg PO QAM [facility] Last Admin: 11/03/17 09:19 Dose: Not Given Sertraline HCl (Zoloft) 50 mg PO HS [facility] Last Admin: 11/03/17 06:02 Dose: Not Given Sodium Chloride (Sodium Chloride Flush Syringe 10 Ml) 10 ml IV PRN PRN PRN Reason: LINE FLUSH Tramadol HCl (Ultram) 50 mg PO Q8H PRN PRN Reason: Pain Review of Systems - Review of Systems ROS unobtainable: due to mental status Exam - Constitutional Vital Signs: Temp Pulse Resp BP Pulse Ox 98.4 F 86 18 111/50 98 11/03/17 07:36 11/03/17 07:36 11/03/17 07:36 11/03/17 07:36 11/03/17 07:36 General appearance: no acute distress, other (follows some commands, non-verbal) - Respiratory Respiratory: bilateral: CTA - Cardiovascular Rhythm: regular Heart Sounds: Present: S1 & S2 Extremities: No edema Extremity abnormal: other (Left AKA) - Gastrointestinal General gastrointestinal: Present: soft, non-distended, normal bowel sounds Rectal Exam: other (scar from previous PEG) - Integumentary Integumentary: Present: warm, dry - Neurologic Neurological: other (unable to assess) - Labs CBC & Chem 7: 11/03/17 04:08 11/03/17 04:08 Lab Results: Laboratory Results - last 24 hr 11/02/17 11/02/17 11/02/17 15:28 15:28 15:28 WBC 20.8 H RBC 3.73 Hgb 10.0 L Hct 32.4 MCV 87 MCH 27 L MCHC 31 RDW 16.7 H Plt Count 217 Lymph % (Auto) Barry % (Auto) Eos % (Auto) Baso % (Auto) Lymph # Barry # Eos # Baso # Add Manual Diff Complete Total Counted 100 Seg Neutrophils % Seg Neuts % (Manual) 94.0 H Band Neutrophils % 0 Lymphocytes % (Manual) 3.0 L Reactive Lymphs % (Man) 0 Monocytes % (Manual) 3.0 Eosinophils % (Manual) 0 Basophils % (Manual) 0 Metamyelocytes % 0 Myelocytes % 0 Promyelocytes % 0 Blast Cells % 0 Nucleated RBC % Not Reportable Seg Neutrophils # Seg Neutrophils # Man 19.6 H Band Neutrophils # 0.0 Lymphocytes # (Manual) 0.6 L Abs React Lymphs (Man) 0.0 Monocytes # (Manual) 0.6 Eosinophils # (Manual) 0.0 Basophils # (Manual) 0.0 Metamyelocytes # 0.0 Myelocytes # 0.0 Promyelocytes # 0.0 Blast Cells # 0.0 WBC Morphology Not Reportable Hypersegmented Neuts Not Reportable Hyposegmented Neuts Not Reportable Hypogranular Neuts Not Reportable Smudge Cells Not Reportable Toxic Granulation Not Reportable Toxic Vacuolation Not Reportable Dohle Bodies Not Reportable Pelger-Huet Anomaly Not Reportable Lupis Rods Not Reportable Platelet Estimate Cons Clumped Platelets Not Reportable Plt Clumps, EDTA Not Reportable Large Platelets Not Reportable Giant Platelets Not Reportable Platelet Satelliting Not Reportable Plt Morphology Comment Not Reportable RBC Morphology Not Reportable Dimorphic RBCs Not Reportable Polychromasia Not Reportable Hypochromasia Few Poikilocytosis Not Reportable Anisocytosis 1+ Microcytosis Not Reportable Macrocytosis Not Reportable Spherocytes Not Reportable Pappenheimer Bodies Not Reportable Sickle Cells Not Reportable Target Cells Rare Tear Drop Cells Not Reportable Ovalocytes Not Reportable Helmet Cells Not Reportable [place] Bodies Not Reportable [place] Rings Not Reportable [place] Cells Not Reportable Bite Cells Not Reportable Crenated Cell Not Reportable Elliptocytes Not Reportable Acanthocytes (Spur) Not Reportable Rouleaux Not Reportable Hemoglobin C Crystals Not Reportable Schistocytes Not Reportable Malaria parasites Not Reportable Tre Bodies Not Reportable Hem Pathologist Commnt No Sodium Potassium Chloride Carbon Dioxide Anion Gap BUN Creatinine Estimated GFR BUN/Creatinine Ratio Glucose POC Glucose Hemoglobin A1c Calcium Total Bilirubin AST ALT Alkaline Phosphatase Ammonia Total Protein Albumin Albumin/Globulin Ratio TSH 0.357 Urine Color Urine Turbidity Urine pH Ur Specific [place] Urine Protein Urine Glucose (UA) Urine Ketones Urine Blood Urine Nitrite Urine Bilirubin Urine Ictotest Urine Urobilinogen Ur Leukocyte Esterase Urine WBC (Auto) Urine RBC (Auto) U Epithel Cells (Auto) Urine Bacteria (Auto) Amorphous Crystals Urine Mucus Urine Opiates Screen Urine Methadone Screen Ur Barbiturates Screen Ur Phencyclidine Scrn Ur Amphetamines Screen U Benzodiazepines Scrn Urine Cocaine Screen U Marijuana (THC) Screen Drugs of Abuse Note Plasma/Serum Alcohol < 0.01 11/02/17 11/02/17 11/02/17 16:15 16:15 16:45 WBC RBC Hgb Hct MCV MCH MCHC RDW Plt Count Lymph % (Auto) Barry % (Auto) Eos % (Auto) Baso % (Auto) Lymph # Barry # Eos # Baso # Add Manual Diff Total Counted Seg Neutrophils % Seg Neuts % (Manual) Band Neutrophils % Lymphocytes % (Manual) Reactive Lymphs % (Man) Monocytes % (Manual) Eosinophils % (Manual) Basophils % (Manual) Metamyelocytes % Myelocytes % Promyelocytes % Blast Cells % Nucleated RBC % Seg Neutrophils # Seg Neutrophils # Man Band Neutrophils # Lymphocytes # (Manual) Abs React Lymphs (Man) Monocytes # (Manual) Eosinophils # (Manual) Basophils # (Manual) Metamyelocytes # Myelocytes # Promyelocytes # Blast Cells # WBC Morphology Hypersegmented Neuts Hyposegmented Neuts Hypogranular Neuts Smudge Cells Toxic Granulation Toxic Vacuolation Dohle Bodies Pelger-Huet Anomaly Lupis Rods Platelet Estimate Clumped Platelets Plt Clumps, EDTA Large Platelets Giant Platelets Platelet Satelliting Plt Morphology Comment RBC Morphology Dimorphic RBCs Polychromasia Hypochromasia Poikilocytosis Anisocytosis Microcytosis Macrocytosis Spherocytes Pappenheimer Bodies Sickle Cells Target Cells Tear Drop Cells Ovalocytes Helmet Cells [place] Bodies [place] Rings [place] Cells Bite Cells Crenated Cell Elliptocytes Acanthocytes (Spur) Rouleaux Hemoglobin C Crystals Schistocytes Malaria parasites Tre Bodies Hem Pathologist Commnt Sodium 137 Potassium 3.5 L Chloride 97.1 L Carbon Dioxide 26 Anion Gap 17 BUN 24 H Creatinine 3.2 H Estimated GFR 18 BUN/Creatinine Ratio 8 Glucose 166 H POC Glucose 192 H Hemoglobin A1c Calcium 7.9 L Total Bilirubin 0.30 AST 15 ALT 10 Alkaline Phosphatase 110 Ammonia 24.0 L Total Protein 7.1 Albumin 1.9 L Albumin/Globulin Ratio 0.4 TSH Urine Color Urine Turbidity Urine pH Ur Specific [place] Urine Protein Urine Glucose (UA) Urine Ketones Urine Blood Urine Nitrite Urine Bilirubin Urine Ictotest Urine Urobilinogen Ur Leukocyte Esterase Urine WBC (Auto) Urine RBC (Auto) U Epithel Cells (Auto) Urine Bacteria (Auto) Amorphous Crystals Urine Mucus Urine Opiates Screen Urine Methadone Screen Ur Barbiturates Screen Ur Phencyclidine Scrn Ur Amphetamines Screen U Benzodiazepines Scrn Urine Cocaine Screen U Marijuana (THC) Screen Drugs of Abuse Note Plasma/Serum Alcohol 11/02/17 11/02/17 11/02/17 16:48 16:48 21:10 WBC RBC Hgb Hct MCV MCH MCHC RDW Plt Count Lymph % (Auto) Barry % (Auto) Eos % (Auto) Baso % (Auto) Lymph # Barry # Eos # Baso # Add Manual Diff Total Counted Seg Neutrophils % Seg Neuts % (Manual) Band Neutrophils % Lymphocytes % (Manual) Reactive Lymphs % (Man) Monocytes % (Manual) Eosinophils % (Manual) Basophils % (Manual) Metamyelocytes % Myelocytes % Promyelocytes % Blast Cells % Nucleated RBC % Seg Neutrophils # Seg Neutrophils # Man Band Neutrophils # Lymphocytes # (Manual) Abs React Lymphs (Man) Monocytes # (Manual) Eosinophils # (Manual) Basophils # (Manual) Metamyelocytes # Myelocytes # Promyelocytes # Blast Cells # WBC Morphology Hypersegmented Neuts Hyposegmented Neuts Hypogranular Neuts Smudge Cells Toxic Granulation Toxic Vacuolation Dohle Bodies Pelger-Huet Anomaly Lupis Rods Platelet Estimate Clumped Platelets Plt Clumps, EDTA Large Platelets Giant Platelets Platelet Satelliting Plt Morphology Comment RBC Morphology Dimorphic RBCs Polychromasia Hypochromasia Poikilocytosis Anisocytosis Microcytosis Macrocytosis Spherocytes Pappenheimer Bodies Sickle Cells Target Cells Tear Drop Cells Ovalocytes Helmet Cells [place] Bodies [place] Rings [place] Cells Bite Cells Crenated Cell Elliptocytes Acanthocytes (Spur) Rouleaux Hemoglobin C Crystals Schistocytes Malaria parasites Tre Bodies Hem Pathologist Commnt Sodium Potassium Chloride Carbon Dioxide Anion Gap BUN Creatinine Estimated GFR BUN/Creatinine Ratio Glucose POC Glucose Hemoglobin A1c 5.2 Calcium Total Bilirubin AST ALT Alkaline Phosphatase Ammonia Total Protein Albumin Albumin/Globulin Ratio TSH Urine Color [place] Urine Turbidity Clear Urine pH 5.0 Ur Specific [place] 1.024 Urine Protein >500 Urine Glucose (UA) Neg Urine Ketones Tr Urine Blood Sm Urine Nitrite Neg Urine Bilirubin Sm Urine Ictotest Negative Urine Urobilinogen 2.0 Ur Leukocyte Esterase Sm Urine WBC (Auto) 6.0 Urine RBC (Auto) 4.0 U Epithel Cells (Auto) < 1.0 Urine Bacteria (Auto) 1+ Amorphous Crystals Few Urine Mucus Few Urine Opiates Screen Presumptive negative Urine Methadone Screen Presumptive negative Ur Barbiturates Screen Presumptive negative Ur Phencyclidine Scrn Presumptive negative Ur Amphetamines Screen Presumptive positive U Benzodiazepines Scrn Presumptive negative Urine Cocaine Screen Presumptive negative U Marijuana (THC) Screen Presumptive negative Drugs of Abuse Note Disclamer Plasma/Serum Alcohol 11/03/17 11/03/17 04:08 04:08 WBC 18.6 H RBC 3.02 L Hgb 7.9 L Hct 26.3 L D MCV 87 MCH 26 L MCHC 30 RDW 17.0 H Plt Count 233 Lymph % (Auto) 6.4 L Barry % (Auto) 5.6 Eos % (Auto) 0.2 Baso % (Auto) 0.4 Lymph # 1.2 Barry # 1.0 H Eos # 0.0 Baso # 0.1 Add Manual Diff Total Counted Seg Neutrophils % 87.4 H Seg Neuts % (Manual) Band Neutrophils % Lymphocytes % (Manual) Reactive Lymphs % (Man) Monocytes % (Manual) Eosinophils % (Manual) Basophils % (Manual) Metamyelocytes % Myelocytes % Promyelocytes % Blast Cells % Nucleated RBC % Seg Neutrophils # 16.2 H Seg Neutrophils # Man Band Neutrophils # Lymphocytes # (Manual) Abs React Lymphs (Man) Monocytes # (Manual) Eosinophils # (Manual) Basophils # (Manual) Metamyelocytes # Myelocytes # Promyelocytes # Blast Cells # WBC Morphology Hypersegmented Neuts Hyposegmented Neuts Hypogranular Neuts Smudge Cells Toxic Granulation Toxic Vacuolation Dohle Bodies Pelger-Huet Anomaly Lupis Rods Platelet Estimate Clumped Platelets Plt Clumps, EDTA Large Platelets Giant Platelets Platelet Satelliting Plt Morphology Comment RBC Morphology Dimorphic RBCs Polychromasia Hypochromasia Poikilocytosis Anisocytosis Microcytosis Macrocytosis Spherocytes Pappenheimer Bodies Sickle Cells Target Cells Tear Drop Cells Ovalocytes Helmet Cells [place] Bodies [place] Rings [place] Cells Bite Cells Crenated Cell Elliptocytes Acanthocytes (Spur) Rouleaux Hemoglobin C Crystals Schistocytes Malaria parasites Tre Bodies Hem Pathologist Commnt Sodium 137 Potassium 3.7 Chloride 96.0 L Carbon Dioxide 26 Anion Gap 19 BUN 34 H Creatinine 3.8 H Estimated GFR 14 BUN/Creatinine Ratio 9 Glucose 86 POC Glucose Hemoglobin A1c Calcium 8.3 L Total Bilirubin 0.30 AST 15 ALT 11 Alkaline Phosphatase 106 Ammonia Total Protein 7.1 Albumin 2.1 L Albumin/Globulin Ratio 0.4 TSH Urine Color Urine Turbidity Urine pH Ur Specific [place] Urine Protein Urine Glucose (UA) Urine Ketones Urine Blood Urine Nitrite Urine Bilirubin Urine Ictotest Urine Urobilinogen Ur Leukocyte Esterase Urine WBC (Auto) Urine RBC (Auto) U Epithel Cells (Auto) Urine Bacteria (Auto) Amorphous Crystals Urine Mucus Urine Opiates Screen Urine Methadone Screen Ur Barbiturates Screen Ur Phencyclidine Scrn Ur Amphetamines Screen U Benzodiazepines Scrn Urine Cocaine Screen U Marijuana (THC) Screen Drugs of Abuse Note Plasma/Serum Alcohol Assessment and Plan 1.PEG placement 2.poor appetite 3.acute CVA 4.leukocytosis 5.ESRD on HD 6.aphasia -pt with h/o previous PEG, however nursing reports pt was able to tolerate po intake on prior admissions -will order a speech eval -possible EGD/PEG placement pending results -continue supportive care -will follow
[2017-11-03] MEDS: cefTRIAXone 1 GM in NACL 0.9% 20 ML IV SCH (09:57)
[2017-11-03] MEDS ORDERED: ECOTRIN PO SCH (10:00)
--- NOTE | 2017-11-03 10:46 | Consultation ---
History of Present Illness Consult date: 11/03/17 Consult reason: other (Abnormal ECG) History of present illness: This is a 67yr old prison resident whom is non-verbal with end stage renal disease who was sent from dialysis with reported hypotension. Her blood pressure on presentation to the ED was 135/70 . Labs most notable for a WBC of 20.8. Patient remains afebrile. A 12-lead ECG done is a sinus rhythm with ST, T- wave abnormalities and LVH. Cardiology consultation was requested for abnormal ECG. Past History Social history: other (prison resident) Family history: hypertension Medications and Allergies Allergies Allergy/AdvReac Type Severity Reaction Status Date / Time guaifenesin [From Robitussin] Allergy Unknown Verified 04/19/17 21:22 Home Medications Medication Instructions Recorded Confirmed Last Taken Type Acetaminophen [Acetaminophen ER 650 mg PO Q8HR PRN 04/13/17 11/03/17 Unknown History TAB] Magnesium Hydroxide [Milk of 30 ml PO Q72HR PRN 04/13/17 11/03/17 Unknown History Magnesia] cloNIDine [Clonidine] 1 each TD QWEEK 04/13/17 11/03/17 Unknown History traMADol [Ultram 50 MG tab] 50 mg PO Q8H PRN 04/13/17 11/03/17 Unknown History Aspirin EC [Ecotrin] 325 mg PO DAILY 08/22/17 11/03/17 Unknown History Docusate Sodium [Colace CAP] 100 mg PO BID 08/22/17 11/03/17 Unknown History Ranitidine HCl [Zantac 300 MG TAB] 300 mg PO BID 08/22/17 11/03/17 Unknown History Sennosides [Vegetable Laxative] 17.2 mg PO HS 08/22/17 11/03/17 Unknown History ALBUTEROL NEB's [Proventil 0.083% 2.5 mg IH Q4HRT PRN #50 nebu 09/02/17 Unknown Rx NEBS] AtorvaSTATin [Lipitor] 40 mg PO QHS #30 tablet 09/02/17 11/03/17 Unknown Rx Hydrochlorothiazide [HCTZ] 25 mg PO QAM #30 tablet 09/02/17 11/03/17 Unknown Rx Lisinopril [Zestril] 40 mg PO QAM #30 tablet 09/02/17 11/03/17 Unknown Rx Metoprolol Xl [Metoprolol 50 mg PO BID #60 tablet 09/02/17 11/03/17 Unknown Rx SUCCINATE ER TAB] Pantoprazole [Protonix TAB] 40 mg PO QAM #30 tablet 09/02/17 11/03/17 Unknown Rx Sertraline [Zoloft] 50 mg PO HS #30 tablet 09/02/17 11/03/17 Unknown Rx Tamsulosin [Flomax] 0.4 mg PO QAM #30 capsule 09/02/17 11/03/17 Unknown Rx amLODIPine [Norvasc] 10 mg PO QAM #30 tablet 09/02/17 11/03/17 Unknown Rx oxyCODONE /ACETAMINOPHEN [Percocet 1 tab PO Q6H PRN #30 tablet 09/02/17 Unknown Rx 5/325 mg] Hydralazine HCl 50 mg PO TID #90 tablet 09/28/17 11/03/17 Unknown Rx Active Meds: Active Medications Acetaminophen (Tylenol) 650 mg PO Q4H PRN PRN Reason: Pain MILD(1-3)/Fever >100.5/GUO Albuterol (Proventil) 2.5 mg IH Q4HRT PRN PRN Reason: Shortness Of Breath Amlodipine Besylate (Norvasc) 10 mg PO QAM [facility] Last Admin: 11/03/17 09:19 Dose: Not Given Aspirin (Ecotrin) 325 mg PO DAILY [facility] Last Admin: 11/03/17 09:19 Dose: Not Given Atorvastatin Calcium (Lipitor) 40 mg PO QHS [facility] Last Admin: 11/03/17 06:01 Dose: Not Given Bisacodyl (Dulcolax) 10 mg [place] QDAY PRN PRN Reason: Constipation unrelieved by MOM Clonidine HCl (Catapres-Tts Patch) 0.3 mg TD Th [facility] Last Admin: 11/03/17 09:12 Dose: 0.3 mg Docusate Sodium (Colace) 100 mg PO BID [facility] Last Admin: 11/03/17 09:19 Dose: Not Given Heparin Sodium (Porcine) (Heparin) 5,000 unit SUB-Q Q12HR [facility] Last Admin: 11/03/17 09:12 Dose: 5,000 unit Hydralazine HCl (Apresoline) 50 mg PO TID [facility] Last Admin: 11/03/17 07:56 Dose: Not Given Dextrose/Sodium Chloride (D5ns) 1,000 mls @ 75 mls/hr IV DIRECT [facility] Ceftriaxone Sodium 1 gm/ (Sodium Chloride) 20 mls @ 20 mls/10 min IV Q24HR [facility] PRN Reason: Protocol Last Admin: 11/03/17 09:57 Dose: 20 mls/10 min Lisinopril (Zestril) 40 mg PO QAM [facility] Last Admin: 11/03/17 09:20 Dose: Not Given Magnesium Hydroxide (Milk Of Magnesia) 30 ml PO Q4H PRN PRN Reason: Constipation Metoprolol Succinate (Toprol Xl) 50 mg PO BID [facility] Last Admin: 11/03/17 09:20 Dose: Not Given Morphine Sulfate (Morphine) 2 mg IV Q4H PRN PRN Reason: Pain, Moderate (4-6) Ondansetron HCl (Zofran) 4 mg IV Q8H PRN PRN Reason: N/V unrelieved by Reglan Oxycodone/Acetaminophen (Percocet 5/325) 1 tab PO Q6H PRN PRN Reason: Pain Pantoprazole Sodium (Protonix) 40 mg PO QAM [facility] Last Admin: 11/03/17 09:19 Dose: Not Given Sertraline HCl (Zoloft) 50 mg PO HS [facility] Last Admin: 11/03/17 06:02 Dose: Not Given Sodium Chloride (Sodium Chloride Flush Syringe 10 Ml) 10 ml IV PRN PRN PRN Reason: LINE FLUSH Tramadol HCl (Ultram) 50 mg PO Q8H PRN PRN Reason: Pain Physical Examination Vital Signs Pulse Resp 94 H 12 11/02/17 14:48 11/02/17 14:48 General appearance: no acute distress Cardiac: Positive: Reg Rate and Rhythm Results 11/03/17 04:08 11/03/17 04:08 Cardiac Enzymes 11/02/17 11/03/17 Range/Units 16:15 04:08 AST 15 15 (5-40) units/L CBC 11/02/17 11/03/17 Range/Units 15:28 04:08 WBC 20.8 H 18.6 H (4.5-11.0) K/mm3 RBC 3.73 3.02 L (3.65-5.03) M/mm3 Hgb 10.0 L 7.9 L (10.1-14.3) gm/dl Hct 32.4 26.3 L D (30.3-42.9) % Plt Count 217 233 (140-440) K/mm3 Lymph # 1.2 (1.2-5.4) K/mm3 [place] # 1.0 H (0.0-0.8) K/mm3 Eos # 0.0 (0.0-0.4) K/mm3 Baso # 0.1 (0.0-0.1) K/mm3 Comprehensive Metabolic Panel 11/02/17 11/03/17 Range/Units 16:15 04:08 Sodium 137 137 (137-145) mmol/L Potassium 3.5 L 3.7 (3.6-5.0) mmol/L Chloride 97.1 L 96.0 L (98-107) mmol/L Carbon Dioxide 26 26 (22-30) mmol/L BUN 24 H 34 H (7-17) mg/dL Creatinine 3.2 H 3.8 H (0.7-1.2) mg/dL Glucose 166 H 86 (65-100) mg/dL Calcium 7.9 L 8.3 L (8.4-10.2) mg/dL AST 15 15 (5-40) units/L ALT 10 11 (7-56) units/L Alkaline Phosphatase 110 106 (35-129) units/L Total Protein 7.1 7.1 (6.3-8.2) g/dL Albumin 1.9 L 2.1 L (3.9-5) g/dL Assessment and Plan ESRD on HD Abnormal ECG Leukocytosis Anemia Hypertension
--- NOTE | 2017-11-03 11:12 | Progress Note ---
Assessment and Plan Assessment and plan: CVA with aphasia. Patient reportedly aphasic 3 weeks. Continue stroke protocol. Follow-up MRI/MRA, echocardiogram and carotid Dopplers. Neurology consultation pending. Leukocytosis. Etiology is unknown. Continue empiric antibiotics. ESRD on hemodialysis. Continue hemodialysis per nephrology. Hypertension. Continue antihypertensive medications. Anorexia. Patient with previous history of pain. GI to consider EGD, status post placement. History Interval history: No new issues overnight. Hospitalist Physical - Constitutional Vitals: Temp Pulse Resp BP Pulse Ox 98.4 F 86 18 111/50 98 11/03/17 07:36 11/03/17 07:36 11/03/17 07:36 11/03/17 07:36 11/03/17 07:36 General appearance: Present: no acute distress - EENT Eyes: Present: PERRL, EOM intact ENT: hearing intact, clear oral mucosa, dentition normal - Neck Neck: Present: supple, normal ROM - Respiratory Respiratory effort: normal Respiratory: bilateral: CTA - Cardiovascular Rhythm: regular Heart Sounds: Present: S1 & S2. Absent: gallop, rub - Extremities Extremities: no ischemia, No edema, Full ROM - Abdominal General gastrointestinal: soft, non-tender, non-distended, normal bowel sounds - Integumentary Integumentary: Present: clear, warm, dry - Neurologic Neurologic: CNII-XII intact, moves all extremities Results - Labs CBC & Chem 7: 11/03/17 04:08 11/03/17 04:08 Labs: Laboratory Last Values WBC 18.6 K/mm3 (4.5-11.0) H 11/03/17 04:08 RBC 3.02 M/mm3 (3.65-5.03) L 11/03/17 04:08 Hgb 7.9 gm/dl (10.1-14.3) L 11/03/17 04:08 Hct 26.3 % (30.3-42.9) L D 11/03/17 04:08 MCV 87 fl (79-97) 11/03/17 04:08 MCH 26 pg (28-32) L 11/03/17 04:08 MCHC 30 % (30-34) 11/03/17 04:08 RDW 17.0 % (13.2-15.2) H 11/03/17 04:08 Plt Count 233 K/mm3 (140-440) 11/03/17 04:08 Lymph % (Auto) 6.4 % (13.4-35.0) L 11/03/17 04:08 [place] % (Auto) 5.6 % (0.0-7.3) 11/03/17 04:08 Eos % (Auto) 0.2 % (0.0-4.3) 11/03/17 04:08 Baso % (Auto) 0.4 % (0.0-1.8) 11/03/17 04:08 Lymph # 1.2 K/mm3 (1.2-5.4) 11/03/17 04:08 [place] # 1.0 K/mm3 (0.0-0.8) H 11/03/17 04:08 Eos # 0.0 K/mm3 (0.0-0.4) 11/03/17 04:08 Baso # 0.1 K/mm3 (0.0-0.1) 11/03/17 04:08 Add Manual Diff Complete 11/02/17 15:28 Total Counted 100 11/02/17 15:28 Seg Neutrophils % 87.4 % (40.0-70.0) H 11/03/17 04:08 Seg Neuts % (Manual) 94.0 % (40.0-70.0) H 11/02/17 15:28 Band Neutrophils % 0 % 11/02/17 15:28 Lymphocytes % (Manual) 3.0 % (13.4-35.0) L 11/02/17 15:28 Reactive Lymphs % (Man) 0 % 11/02/17 15:28 Monocytes % (Manual) 3.0 % (0.0-7.3) 11/02/17 15:28 Eosinophils % (Manual) 0 % (0.0-4.3) 11/02/17 15:28 Basophils % (Manual) 0 % (0.0-1.8) 11/02/17 15:28 Metamyelocytes % 0 % 11/02/17 15:28 Myelocytes % 0 % 11/02/17 15:28 Promyelocytes % 0 % 11/02/17 15:28 Blast Cells % 0 % 11/02/17 15:28 Nucleated RBC % Not Reportable 11/02/17 15:28 Seg Neutrophils # 16.2 K/mm3 (1.8-7.7) H 11/03/17 04:08 Seg Neutrophils # Man 19.6 K/mm3 (1.8-7.7) H 11/02/17 15:28 Band Neutrophils # 0.0 K/mm3 11/02/17 15:28 Lymphocytes # (Manual) 0.6 K/mm3 (1.2-5.4) L 11/02/17 15:28 Abs React Lymphs (Man) 0.0 K/mm3 11/02/17 15:28 Monocytes # (Manual) 0.6 K/mm3 (0.0-0.8) 11/02/17 15:28 Eosinophils # (Manual) 0.0 K/mm3 (0.0-0.4) 11/02/17 15:28 Basophils # (Manual) 0.0 K/mm3 (0.0-0.1) 11/02/17 15:28 Metamyelocytes # 0.0 K/mm3 11/02/17 15:28 Myelocytes # 0.0 K/mm3 11/02/17 15:28 Promyelocytes # 0.0 K/mm3 11/02/17 15:28 Blast Cells # 0.0 K/mm3 11/02/17 15:28 WBC Morphology Not Reportable 11/02/17 15:28 Hypersegmented Neuts Not Reportable 11/02/17 15:28 Hyposegmented Neuts Not Reportable 11/02/17 15:28 Hypogranular Neuts Not Reportable 11/02/17 15:28 Smudge Cells Not Reportable 11/02/17 15:28 Toxic Granulation Not Reportable 11/02/17 15:28 Toxic Vacuolation Not Reportable 11/02/17 15:28 Dohle Bodies Not Reportable 11/02/17 15:28 Pelger-Huet Anomaly Not Reportable 11/02/17 15:28 Lupis Rods Not Reportable 11/02/17 15:28 Platelet Estimate Cons 11/02/17 15:28 Clumped Platelets Not Reportable 11/02/17 15:28 Plt Clumps, EDTA Not Reportable 11/02/17 15:28 Large Platelets Not Reportable 11/02/17 15:28 Giant Platelets Not Reportable 11/02/17 15:28 Platelet Satelliting Not Reportable 11/02/17 15:28 Plt Morphology Comment Not Reportable 11/02/17 15:28 RBC Morphology Not Reportable 11/02/17 15:28 Dimorphic RBCs Not Reportable 11/02/17 15:28 Polychromasia Not Reportable 11/02/17 15:28 Hypochromasia Few 11/02/17 15:28 Poikilocytosis Not Reportable 11/02/17 15:28 Anisocytosis 1+ 11/02/17 15:28 Microcytosis Not Reportable 11/02/17 15:28 Macrocytosis Not Reportable 11/02/17 15:28 Spherocytes Not Reportable 11/02/17 15:28 Pappenheimer Bodies Not Reportable 11/02/17 15:28 Sickle Cells Not Reportable 11/02/17 15:28 Target Cells Rare 11/02/17 15:28 Tear Drop Cells Not Reportable 11/02/17 15:28 Ovalocytes Not Reportable 11/02/17 15:28 Helmet Cells Not Reportable 11/02/17 15:28 [place] Bodies Not Reportable 11/02/17 15:28 [place] Rings Not Reportable 11/02/17 15:28 [place] Cells Not Reportable 11/02/17 15:28 Bite Cells Not Reportable 11/02/17 15:28 Crenated Cell Not Reportable 11/02/17 15:28 Elliptocytes Not Reportable 11/02/17 15:28 Acanthocytes (Spur) Not Reportable 11/02/17 15:28 Rouleaux Not Reportable 11/02/17 15:28 Hemoglobin C Crystals Not Reportable 11/02/17 15:28 Schistocytes Not Reportable 11/02/17 15:28 Malaria parasites Not Reportable 11/02/17 15:28 Tre Bodies Not Reportable 11/02/17 15:28 Hem Pathologist Commnt No 11/02/17 15:28 Sodium 137 mmol/L (137-145) 11/03/17 04:08 Potassium 3.7 mmol/L (3.6-5.0) 11/03/17 04:08 Chloride 96.0 mmol/L (98-107) L 11/03/17 04:08 Carbon Dioxide 26 mmol/L (22-30) 11/03/17 04:08 Anion Gap 19 mmol/L 11/03/17 04:08 BUN 34 mg/dL (7-17) H 11/03/17 04:08 Creatinine 3.8 mg/dL (0.7-1.2) H 11/03/17 04:08 Estimated GFR 14 ml/min 11/03/17 04:08 BUN/Creatinine Ratio 9 % 11/03/17 04:08 Glucose 86 mg/dL (65-100) 11/03/17 04:08 POC Glucose 192 (70-105) H 11/02/17 16:45 Hemoglobin A1c 5.2 % (4-6) 11/02/17 21:10 Calcium 8.3 mg/dL (8.4-10.2) L 11/03/17 04:08 Total Bilirubin 0.30 mg/dL (0.1-1.2) 11/03/17 04:08 AST 15 units/L (5-40) 11/03/17 04:08 ALT 11 units/L (7-56) 11/03/17 04:08 Alkaline Phosphatase 106 units/L (35-129) 11/03/17 04:08 Ammonia 24.0 umol/L (25-60) L 11/02/17 16:15 Total Protein 7.1 g/dL (6.3-8.2) 11/03/17 04:08 Albumin 2.1 g/dL (3.9-5) L 11/03/17 04:08 Albumin/Globulin Ratio 0.4 % 11/03/17 04:08 TSH 0.357 mlU/mL (0.270-4.200) 11/02/17 15:28 Urine Color [place] (Yellow) 11/02/17 16:48 Urine Turbidity Clear (Clear) 11/02/17 16:48 Urine pH 5.0 (5.0-7.0) 11/02/17 16:48 Ur Specific [place] 1.024 (1.003-1.030) 11/02/17 16:48 Urine Protein >500 mg/dL (Negative) 11/02/17 16:48 Urine Glucose (UA) Neg mg/dL (Negative) 11/02/17 16:48 Urine Ketones Tr mg/dL (Negative) 11/02/17 16:48 Urine Blood Sm (Negative) 11/02/17 16:48 Urine Nitrite Neg (Negative) 11/02/17 16:48 Urine Bilirubin Sm (Negative) 11/02/17 16:48 Urine Ictotest Negative (Negative) 11/02/17 16:48 Urine Urobilinogen 2.0 mg/dL (<2.0) 11/02/17 16:48 Ur Leukocyte Esterase Sm (Negative) 11/02/17 16:48 Urine WBC (Auto) 6.0 /HPF (0.0-6.0) 11/02/17 16:48 Urine RBC (Auto) 4.0 /HPF (0.0-6.0) 11/02/17 16:48 U Epithel Cells (Auto) < 1.0 /HPF (0-13.0) 11/02/17 16:48 Urine Bacteria (Auto) 1+ /HPF (Negative) 11/02/17 16:48 Amorphous Crystals Few 11/02/17 16:48 Urine Mucus Few /HPF 11/02/17 16:48 Urine Opiates Screen Presumptive negative 11/02/17 16:48 Urine Methadone Screen Presumptive negative 11/02/17 16:48 Ur Barbiturates Screen Presumptive negative 11/02/17 16:48 Ur Phencyclidine Scrn Presumptive negative 11/02/17 16:48 Ur Amphetamines Screen Presumptive positive 11/02/17 16:48 U Benzodiazepines Scrn Presumptive negative 11/02/17 16:48 Urine Cocaine Screen Presumptive negative 11/02/17 16:48 U Marijuana (THC) Screen Presumptive negative 11/02/17 16:48 Drugs of Abuse Note Disclamer 11/02/17 16:48 Plasma/Serum Alcohol < 0.01 gm% (0-0.07) 11/02/17 15:28
--- NOTE | 2017-11-03 13:20 | XRay Report ---
AP CHEST: HISTORY: Leukocytosis A right IJ dual-lumen catheter has been inserted since 08/22/17 which terminates in the superior right atrium. The lungs are generally clear. There is no evidence for consolidation, large pleural effusion or pneumothorax. Borderline heart size is noted on today's exam which has increased since the comparison exam. Pulmonary vascularity is within normal limits. IMPRESSION: Borderline heart size. Lungs clear.
[2017-11-03 14:29] LABS: Creatine Kinase MB 1.5 ng/mL (0.0-4.0)
[2017-11-03 15:01] LABS: Chol/HDL Ratio 8.87 %
--- NOTE | 2017-11-03 16:51 | Consultation ---
History of Present Illness Consult date: 11/03/17 History of present illness: did extensive review of the CT and there is gliosis and old cerebral inarcts bilateral there are areas suggestive of old strokes... no evidence of acute infarct suspect AMS from the strokes plan EEG Past History Past Medical History: COPD, diabetes, ESRD (on HD), heart failure, hypertension , stroke Past Surgical History: Other (previous PEG, left AKA) Social history: other ([facility] resident) Family history: hypertension Medications and Allergies Allergies Allergy/AdvReac Type Severity Reaction Status Date / Time guaifenesin [From Robitussin] Allergy Unknown Verified 04/19/17 21:22 Home Medications Medication Instructions Recorded Confirmed Last Taken Type Acetaminophen [Acetaminophen ER 650 mg PO Q8HR PRN 04/13/17 11/03/17 Unknown History TAB] Magnesium Hydroxide [Milk of 30 ml PO Q72HR PRN 04/13/17 11/03/17 Unknown History Magnesia] cloNIDine [Clonidine] 1 each TD QWEEK 04/13/17 11/03/17 Unknown History traMADol [Ultram 50 MG tab] 50 mg PO Q8H PRN 04/13/17 11/03/17 Unknown History Aspirin EC [Ecotrin] 325 mg PO DAILY 08/22/17 11/03/17 Unknown History Docusate Sodium [Colace CAP] 100 mg PO BID 08/22/17 11/03/17 Unknown History Ranitidine HCl [Zantac 300 MG TAB] 300 mg PO BID 08/22/17 11/03/17 Unknown History Sennosides [Vegetable Laxative] 17.2 mg PO HS 08/22/17 11/03/17 Unknown History ALBUTEROL NEB's [Proventil 0.083% 2.5 mg IH Q4HRT PRN #50 nebu 09/02/17 Unknown Rx NEBS] AtorvaSTATin [Lipitor] 40 mg PO QHS #30 tablet 09/02/17 11/03/17 Unknown Rx Hydrochlorothiazide [HCTZ] 25 mg PO QAM #30 tablet 09/02/17 11/03/17 Unknown Rx Lisinopril [Zestril] 40 mg PO QAM #30 tablet 09/02/17 11/03/17 Unknown Rx Metoprolol Xl [Metoprolol 50 mg PO BID #60 tablet 09/02/17 11/03/17 Unknown Rx SUCCINATE ER TAB] Pantoprazole [Protonix TAB] 40 mg PO QAM #30 tablet 09/02/17 11/03/17 Unknown Rx Sertraline [Zoloft] 50 mg PO HS #30 tablet 09/02/17 11/03/17 Unknown Rx Tamsulosin [Flomax] 0.4 mg PO QAM #30 capsule 09/02/17 11/03/17 Unknown Rx amLODIPine [Norvasc] 10 mg PO QAM #30 tablet 09/02/17 11/03/17 Unknown Rx oxyCODONE /ACETAMINOPHEN [Percocet 1 tab PO Q6H PRN #30 tablet 09/02/17 Unknown Rx 5/325 mg] Hydralazine HCl 50 mg PO TID #90 tablet 09/28/17 11/03/17 Unknown Rx Active Meds: Active Medications Acetaminophen (Tylenol) 650 mg PO Q4H PRN PRN Reason: Pain MILD(1-3)/Fever >100.5/GUO Albuterol (Proventil) 2.5 mg IH Q4HRT PRN PRN Reason: Shortness Of Breath Amlodipine Besylate (Norvasc) 10 mg PO QAM [facility] Last Admin: 11/03/17 09:19 Dose: Not Given Aspirin (Ecotrin) 325 mg PO DAILY [facility] Last Admin: 11/03/17 09:19 Dose: Not Given Atorvastatin Calcium (Lipitor) 40 mg PO QHS [facility] Last Admin: 11/03/17 06:01 Dose: Not Given Bisacodyl (Dulcolax) 10 mg MI QDAY PRN PRN Reason: Constipation unrelieved by MOM Clonidine HCl (Catapres-Tts Patch) 0.3 mg TD Th [facility] Last Admin: 11/03/17 09:12 Dose: 0.3 mg Docusate Sodium (Colace) 100 mg PO BID [facility] Last Admin: 11/03/17 09:19 Dose: Not Given Heparin Sodium (Porcine) (Heparin) 5,000 unit SUB-Q Q12HR [facility] Last Admin: 11/03/17 09:12 Dose: 5,000 unit Hydralazine HCl (Apresoline) 50 mg PO TID [facility] Last Admin: 11/03/17 14:05 Dose: 50 mg Dextrose/Sodium Chloride (D5ns) 1,000 mls @ 75 mls/hr IV DIRECT [facility] Ceftriaxone Sodium 1 gm/ (Sodium Chloride) 20 mls @ 20 mls/10 min IV Q24HR REYES PRN Reason: Protocol Last Admin: 11/03/17 09:57 Dose: 20 mls/10 min Lisinopril (Zestril) 40 mg PO QAM [facility] Last Admin: 11/03/17 09:20 Dose: Not Given Magnesium Hydroxide (Milk Of Magnesia) 30 ml PO Q4H PRN PRN Reason: Constipation Metoprolol Succinate (Toprol Xl) 50 mg PO BID [facility] Last Admin: 11/03/17 09:20 Dose: Not Given Morphine Sulfate (Morphine) 2 mg IV Q4H PRN PRN Reason: Pain, Moderate (4-6) Nitroglycerin (Nitro Dur) 0.4 mg TD QDAY@0600 [facility] Ondansetron HCl (Zofran) 4 mg IV Q8H PRN PRN Reason: N/V unrelieved by Reglan Oxycodone/Acetaminophen (Percocet 5/325) 1 tab PO Q6H PRN PRN Reason: Pain Pantoprazole Sodium [facility]ix) [facility] [place] [facility] Admin: 11/03/17 09:19 Dose: Not Given Sertraline HCl (Zoloft) 50 mg PO HS [facility] Last Admin: 11/03/17 06:02 Dose: Not Given Sodium Chloride (Sodium Chloride Flush Syringe 10 Ml) 10 ml IV PRN PRN PRN Reason: LINE FLUSH Tramadol HCl (Ultram) 50 mg PO Q8H PRN PRN Reason: Pain Physical Examination - Vital Signs Vital Signs: Vital Signs Pulse Resp 94 H 12 11/02/17 14:48 11/02/17 14:48 Results - Laboratory Findings CBC and BMP: 11/03/17 04:08 11/03/17 04:08 Abnormal Lab Findings: Abnormal Labs 11/02/17 11/02/17 11/02/17 15:28 16:15 16:15 WBC 20.8 H RBC Hgb 10.0 L Hct MCH 27 L RDW 16.7 H Lymph % (Auto) [place] # Seg Neutrophils % Seg Neuts % (Manual) 94.0 H Lymphocytes % (Manual) 3.0 L Seg Neutrophils # Seg Neutrophils # Man 19.6 H Lymphocytes # (Manual) 0.6 L Potassium 3.5 L Chloride 97.1 L BUN 24 H Creatinine 3.2 H Glucose 166 H POC Glucose Calcium 7.9 L Ammonia 24.0 L Troponin T Albumin 1.9 L LDL Cholesterol Direct HDL Cholesterol 11/02/17 11/03/17 11/03/17 16:45 04:08 04:08 WBC 18.6 H RBC 3.02 L Hgb 7.9 L Hct 26.3 L D MCH 26 L RDW 17.0 H Lymph % (Auto) 6.4 L [place] # 1.0 H Seg Neutrophils % 87.4 H Seg Neuts % (Manual) Lymphocytes % (Manual) Seg Neutrophils # 16.2 H Seg Neutrophils # Man Lymphocytes # (Manual) Potassium Chloride 96.0 L BUN 34 H Creatinine 3.8 H Glucose POC Glucose 192 H Calcium 8.3 L Ammonia Troponin T Albumin 2.1 L LDL Cholesterol Direct HDL Cholesterol 11/03/17 12:49 WBC RBC Hgb Hct MCH RDW Lymph % (Auto) [place] # Seg Neutrophils % Seg Neuts % (Manual) Lymphocytes % (Manual) Seg Neutrophils # Seg Neutrophils # Man Lymphocytes # (Manual) Potassium Chloride BUN Creatinine Glucose POC Glucose Calcium Ammonia Troponin T 0.101 H* Albumin LDL Cholesterol Direct 41 L HDL Cholesterol 8 L
[2017-11-04] MEDS: NITRO DUR TD SCH (06:14)
[2017-11-04] MEDS: APRESOLINE PO SCH ×2 (08:00→22:55)
[2017-11-04 08:49] LABS: Basophils # (Auto) 0.1 K/mm3 (0.0-0.1); Basophils % (Auto) 0.4 % (0.0-1.8); Eosinophils # (Auto) 0.1 K/mm3 (0.0-0.4); Eosinophils % (Auto) 0.5 % (0.0-4.3); Hematocrit 26.5 % (30.3-42.9); Hemoglobin 8.4 gm/dl (10.1-14.3); Lymphocytes % (Auto) 7.2 % (13.4-35.0); Mean Corpuscular HGB Conc 32 % (30-34); Mean Corpuscular Hemoglobin 27 pg (28-32); Mean Corpuscular Volume 86 fl (79-97); Monocytes # (Auto) 0.9 K/mm3 (0.0-0.8); Monocytes % (Auto) 6.9 % (0.0-7.3); Platelet Count 287 K/mm3 (140-440); Red Blood Count 3.07 M/mm3 (3.65-5.03); Red Cell Distribution Width 16.9 % (13.2-15.2)
[2017-11-04 09:08] LABS: Calcium 8.3 mg/dL (8.4-10.2); INR 1.19 (0.87-1.13)
[2017-11-04 09:09] LABS: Partial Thromboplastin Time 30.7 Sec. (24.2-36.6)
[2017-11-04] MEDS ORDERED: NACL 0.9% 100 ML IV PRN (09:44)
--- NOTE | 2017-11-04 09:44 | Progress Note ---
Assessment and Plan Impression: * End stage renal disease on HD * Malnutrition * Hypertension * Anemia secondary to ESRD Plan: * Hemodialysis today - continue MWF schedule * UF as tolerated * PEG placement per GI * Note cardiology recommendation * Dose medications for renal function Subjective Date of service: 11/04/17 Objective - Vital Signs Vital signs: Vital Signs - 12hr 11/03/17 11/04/17 11/04/17 22:33 00:46 05:19 Temperature 98.4 F 97.3 F L Pulse Rate 89 77 74 Respiratory 20 Rate Blood Pressure 132/59 117/53 108/45 O2 Sat by Pulse 100 100 Oximetry 11/04/17 11/04/17 11/04/17 05:26 06:14 08:16 Temperature 98.0 F Pulse Rate 70 79 84 Respiratory 16 Rate Blood Pressure 108/45 114/58 O2 Sat by Pulse 99 Oximetry - Lab 11/04/17 08:27 11/04/17 08:27 Most recent lab results Calcium 8.3 mg/dL (8.4-10.2) L 11/04/17 08:27
[2017-11-04] MEDS: NORVASC PO SCH (10:00)
[2017-11-04] MEDS: ZESTRIL PO SCH (10:00)
[2017-11-04] MEDS: TOPROL XL PO SCH ×2 (10:00→22:50)
[2017-11-04] MEDS: HEPARIN SUB-Q SCH ×2 (10:00→22:50)
[2017-11-04] MEDS: COLACE PO SCH ×2 (10:00→22:50)
[2017-11-04] MEDS ORDERED: NACL 0.9 (PRIMING MACHINE ONLY DIALYSIS) MC ONE ×2 (10:39→11:57)
[2017-11-04] MEDS ORDERED: NACL 0.9% 1000 ML 1,000 ML IV SCH (12:00)
--- NOTE | 2017-11-04 12:39 | Progress Note ---
Assessment and Plan Assessment and plan: CVA with aphasia. Patient reportedly aphasic 3 weeks. Continue stroke protocol. Follow-up MRI/MRA, echocardiogram and carotid Dopplers. Check EEG. Neurology following. Leukocytosis. Etiology is unknown. Improved. Continue empiric antibiotics. ESRD on hemodialysis. Continue hemodialysis per nephrology. Hypertension. Continue antihypertensive medications. Anorexia. Patient with previous history of pain. GI to consider EGD, status post placement. History Interval history: No new issues overnight. Hospitalist Physical - Constitutional Vitals: Temp Pulse Resp BP Pulse Ox 98.0 F 84 16 114/58 99 11/04/17 08:16 11/04/17 08:16 11/04/17 08:16 11/04/17 08:16 11/04/17 08:16 General appearance: Present: no acute distress - EENT Eyes: Present: PERRL, EOM intact ENT: hearing intact, clear oral mucosa, dentition normal - Neck Neck: Present: supple, normal ROM - Respiratory Respiratory effort: normal Respiratory: bilateral: CTA - Cardiovascular Rhythm: regular Heart Sounds: Present: S1 & S2. Absent: gallop, rub - Extremities Extremities: no ischemia, No edema, Full ROM - Abdominal General gastrointestinal: soft, non-tender, non-distended, normal bowel sounds - Integumentary Integumentary: Present: clear, warm, dry - Neurologic Neurologic: CNII-XII intact, moves all extremities Results - Labs CBC & Chem 7: 11/04/17 08:27 11/04/17 08:27 Labs: Laboratory Last Values WBC 13.5 K/mm3 (4.5-11.0) H 11/04/17 08:27 RBC 3.07 M/mm3 (3.65-5.03) L 11/04/17 08:27 Hgb 8.4 gm/dl (10.1-14.3) L 11/04/17 08:27 Hct 26.5 % (30.3-42.9) L 11/04/17 08:27 MCV 86 fl (79-97) 11/04/17 08:27 MCH 27 pg (28-32) L 11/04/17 08:27 MCHC 32 % (30-34) 11/04/17 08:27 RDW 16.9 % (13.2-15.2) H 11/04/17 08:27 Plt Count 287 K/mm3 (140-440) 11/04/17 08:27 Lymph % (Auto) 7.2 % (13.4-35.0) L 11/04/17 08:27 [place] % (Auto) 6.9 % (0.0-7.3) 11/04/17 08:27 Eos % (Auto) 0.5 % (0.0-4.3) 11/04/17 08: Baso % (Auto) 0.4 % (0.0-1.8) 11/04/17 08:27 Lymph # 1.0 K/mm3 (1.2-5.4) L 11/04/17 08:27 [place] # 0.9 K/mm3 (0.0-0.8) H 11/04/17 08:27 Eos # 0.1 K/mm3 (0.0-0.4) 11/04/17 08: Baso # 0.1 K/mm3 (0.0-0.1) 11/04/17 08:27 Add Manual Diff Complete 11/02/17 15:28 Total Counted 100 11/02/17 15:28 Seg Neutrophils % 85.0 % (40.0-70.0) H 11/04/17 08:27 Seg Neuts % (Manual) 94.0 % (40.0-70.0) H 11/02/17 15:28 Band Neutrophils % 0 % 11/02/17 15:28 Lymphocytes % (Manual) 3.0 % (13.4-35.0) L 11/02/17 15:28 Reactive Lymphs % (Man) 0 % 11/02/17 15:28 Monocytes % (Manual) 3.0 % (0.0-7.3) 11/02/17 15:28 Eosinophils % (Manual) 0 % (0.0-4.3) 11/02/17 15:28 Basophils % (Manual) 0 % (0.0-1.8) 11/02/17 15:28 Metamyelocytes % 0 % 11/02/17 15:28 Myelocytes % 0 % 11/02/17 15:28 Promyelocytes % 0 % 11/02/17 15:28 Blast Cells % 0 % 11/02/17 15:28 Nucleated RBC % Not Reportable 11/02/17 15:28 Seg Neutrophils # 11.5 K/mm3 (1.8-7.7) H 11/04/17 08:27 Seg Neutrophils # Man 19.6 K/mm3 (1.8-7.7) H 11/02/17 15:28 Band Neutrophils # 0.0 K/mm3 11/02/17 15:28 Lymphocytes # (Manual) 0.6 K/mm3 (1.2-5.4) L 11/02/17 15:28 Abs React Lymphs (Man) 0.0 K/mm3 11/02/17 15:28 Monocytes # (Manual) 0.6 K/mm3 (0.0-0.8) 11/02/17 15:28 Eosinophils # (Manual) 0.0 K/mm3 (0.0-0.4) 11/02/17 15:28 Basophils # (Manual) 0.0 K/mm3 (0.0-0.1) 11/02/17 15:28 Metamyelocytes # 0.0 K/mm3 11/02/17 15:28 Myelocytes # 0.0 K/mm3 11/02/17 15:28 Promyelocytes # 0.0 K/mm3 11/02/17 15:28 Blast Cells # 0.0 K/mm3 11/02/17 15:28 WBC Morphology Not Reportable 11/02/17 15:28 Hypersegmented Neuts Not Reportable 11/02/17 15:28 Hyposegmented Neuts Not Reportable 11/02/17 15:28 Hypogranular Neuts Not Reportable 11/02/17 15:28 Smudge Cells Not Reportable 11/02/17 15:28 Toxic Granulation Not Reportable 11/02/17 15:28 Toxic Vacuolation Not Reportable 11/02/17 15:28 Dohle Bodies Not Reportable 11/02/17 15:28 Pelger-Huet Anomaly Not Reportable 11/02/17 15:28 Lupis Rods Not Reportable 11/02/17 15:28 Platelet Estimate Cons 11/02/17 15:28 Clumped Platelets Not Reportable 11/02/17 15:28 Plt Clumps, EDTA Not Reportable 11/02/17 15:28 Large Platelets Not Reportable 11/02/17 15:28 Giant Platelets Not Reportable 11/02/17 15:28 Platelet Satelliting Not Reportable 11/02/17 15:28 Plt Morphology Comment Not Reportable 11/02/17 15:28 RBC Morphology Not Reportable 11/02/17 15:28 Dimorphic RBCs Not Reportable 11/02/17 15:28 Polychromasia Not Reportable 11/02/17 15:28 Hypochromasia Few 11/02/17 15:28 Poikilocytosis Not Reportable 11/02/17 15:28 Anisocytosis 1+ 11/02/17 15:28 Microcytosis Not Reportable 11/02/17 15:28 Macrocytosis Not Reportable 11/02/17 15:28 Spherocytes Not Reportable 11/02/17 15:28 Pappenheimer Bodies Not Reportable 11/02/17 15:28 Sickle Cells Not Reportable 11/02/17 15:28 Target Cells Rare 11/02/17 15:28 Tear Drop Cells Not Reportable 11/02/17 15:28 Ovalocytes Not Reportable 11/02/17 15:28 Helmet Cells Not Reportable 11/02/17 15:28 [place] Bodies Not Reportable 11/02/17 15:28 [place] Rings Not Reportable 11/02/17 15:28 [place] Cells Not Reportable 11/02/17 15:28 Bite Cells Not Reportable 11/02/17 15:28 Crenated Cell Not Reportable 11/02/17 15:28 Elliptocytes Not Reportable 11/02/17 15:28 Acanthocytes (Spur) Not Reportable 11/02/17 15:28 Rouleaux Not Reportable 11/02/17 15:28 Hemoglobin C Crystals Not Reportable 11/02/17 15:28 Schistocytes Not Reportable 11/02/17 15:28 Malaria parasites Not Reportable 11/02/17 15:28 Rte Bodies Not Reportable 11/02/17 15:28 Hem Pathologist Commnt No 11/02/17 15:28 PT 15.7 Sec. (12.2-14.9) H 11/04/17 08:27 INR 1.19 (0.87-1.13) H 11/04/17 08:27 APTT 30.7 Sec. (24.2-36.6) 11/04/17 08:27 Sodium 139 mmol/L (137-145) 11/04/17 08:27 Potassium 3.9 mmol/L (3.6-5.0) 11/04/17 08:27 Chloride 97.4 mmol/L (98-107) L 11/04/17 08:27 Carbon Dioxide 24 mmol/L (22-30) 11/04/17 08:27 Anion Gap 22 mmol/L 11/04/17 08:27 BUN 48 mg/dL (7-17) H 11/04/17 08:27 Creatinine 5.4 mg/dL (0.7-1.2) H 11/04/17 08:27 Estimated GFR 10 ml/min 11/04/17 08:27 BUN/Creatinine Ratio 9 % 11/04/17 08:27 Glucose 77 mg/dL (65-100) 11/04/17 08:27 POC Glucose 192 (70-105) H 11/02/17 16:45 Hemoglobin A1c 5.2 % (4-6) 11/02/17 21:10 Calcium 8.3 mg/dL (8.4-10.2) L 11/04/17 08:27 Total Bilirubin 0.30 mg/dL (0.1-1.2) 11/03/17 04:08 AST 15 units/L (5-40) 11/03/17 04:08 ALT 11 units/L (7-56) 11/03/17 04:08 Alkaline Phosphatase 106 units/L (35-129) 11/03/17 04:08 Ammonia 24.0 umol/L (25-60) L 11/02/17 16:15 Total Creatine Kinase 45 units/L (30-135) 11/03/17 12:49 CK-MB (CK-2) 1.5 ng/mL (0.0-4.0) 11/03/17 12:49 CK-MB (CK-2) Rel Index 3.3 (0-4) 11/03/17 12:49 Troponin T 0.101 ng/mL (0.00-0.029) H* 11/03/17 12:49 Total Protein 7.1 g/dL (6.3-8.2) 11/03/17 04:08 Albumin 2.1 g/dL (3.9-5) L 11/03/17 04:08 Albumin/Globulin Ratio 0.4 % 11/03/17 04:08 Triglycerides 112 mg/dL (2-149) 11/03/17 12:49 Cholesterol 71 mg/dL (50-199) 11/03/17 12:49 LDL Cholesterol Direct 41 mg/dL (50-130) L 11/03/17 12:49 HDL Cholesterol 8 mg/dL (40-59) L 11/03/17 12:49 Cholesterol/HDL Ratio 8.87 % 11/03/17 12:49 TSH 0.357 mlU/mL (0.270-4.200) 11/02/17 15:28 Urine Color [place] (Yellow) 11/02/17 16:48 Urine Turbidity Clear (Clear) 11/02/17 16:48 Urine pH 5.0 (5.0-7.0) 11/02/17 16:48 Ur Specific [place] 1.024 (1.003-1.030) 11/02/17 16:48 Urine Protein >500 mg/dL (Negative) 11/02/17 16:48 Urine Glucose (UA) Neg mg/dL (Negative) 11/02/17 16:48 Urine Ketones Tr mg/dL (Negative) 11/02/17 16:48 Urine Blood Sm (Negative) 11/02/17 16:48 Urine Nitrite Neg (Negative) 11/02/17 16:48 Urine Bilirubin Sm (Negative) 11/02/17 16:48 Urine Ictotest Negative (Negative) 11/02/17 16:48 Urine Urobilinogen 2.0 mg/dL (<2.0) 11/02/17 16:48 Ur Leukocyte Esterase Sm (Negative) 11/02/17 16:48 Urine WBC (Auto) 6.0 /HPF (0.0-6.0) 11/02/17 16:48 Urine RBC (Auto) 4.0 /HPF (0.0-6.0) 11/02/17 16:48 U Epithel Cells (Auto) < 1.0 /HPF (0-13.0) 11/02/17 16:48 Urine Bacteria (Auto) 1+ /HPF (Negative) 11/02/17 16:48 Amorphous Crystals Few 11/02/17 16:48 Urine Mucus Few /HPF 11/02/17 16:48 Urine Opiates Screen Presumptive negative 11/02/17 16:48 Urine Methadone Screen Presumptive negative 11/02/17 16:48 Ur Barbiturates Screen Presumptive negative 11/02/17 16:48 Ur Phencyclidine Scrn Presumptive negative 11/02/17 16:48 Ur Amphetamines Screen Presumptive positive 11/02/17 16:48 U Benzodiazepines Scrn Presumptive negative 11/02/17 16:48 Urine Cocaine Screen Presumptive negative 11/02/17 16:48 U Marijuana (THC) Screen Presumptive negative 11/02/17 16:48 Drugs of Abuse Note Disclamer 11/02/17 16:48 Plasma/Serum Alcohol < 0.01 gm% (0-0.07) 11/02/17 15:28
--- NOTE | 2017-11-04 12:55 | Progress Note ---
Assessment and Plan ESRD on HD Abnormal ECG Leukocytosis Anemia Hypertension Echocardiogram done 3 months ago demonstrated well-preserved left ventricular systolic function, ejection fraction 50-55%. Subjective Date of service: 11/04/17 Interval history: Patient is non-verbal, resting in bed comfortably. Objective Vital Signs Temp Pulse Resp BP Pulse Ox 11/04/17 08:16 98.0 F 84 16 114/58 99 11/04/17 06:14 79 108/45 11/04/17 05:26 70 11/04/17 05:19 97.3 F L 74 108/45 100 11/04/17 00:46 98.4 F 77 20 117/53 100 11/03/17 22:33 89 132/59 11/03/17 21:06 97.5 F L 86 22 126/61 100 11/03/17 20:00 88 11/03/17 15:18 98.2 F 96 H 12 132/59 100 11/03/17 13:27 98.2 F 78 20 120/61 100 - Physical Examination General: No Apparent Distress Cardiac: Positive: Reg Rate and Rhythm - Labs and Meds Cardiac Enzymes 11/03/17 Range/Units 12:49 CK-MB (CK-2) 1.5 (0.0-4.0) ng/mL Coagulation 11/04/17 Range/Units 08:27 PT 15.7 H (12.2-14.9) Sec. INR 1.19 H (0.87-1.13) APTT 30.7 (24.2-36.6) Sec. Lipids 11/03/17 Range/Units 12:49 Triglycerides 112 (2-149) mg/dL Cholesterol 71 (50-199) mg/dL HDL Cholesterol 8 L (40-59) mg/dL Cholesterol/HDL Ratio 8.87 % CBC 11/04/17 Range/Units 08:27 WBC 13.5 H (4.5-11.0) K/mm3 RBC 3.07 L (3.65-5.03) M/mm3 Hgb 8.4 L (10.1-14.3) gm/dl Hct 26.5 L (30.3-42.9) % Plt Count 287 (140-440) K/mm3 Lymph # 1.0 L (1.2-5.4) K/mm3 [place] # 0.9 H (0.0-0.8) K/mm3 Eos # 0.1 (0.0-0.4) K/mm3 Baso # 0.1 (0.0-0.1) K/mm3 Comprehensive Metabolic Panel 11/04/17 Range/Units 08:27 Sodium 139 (137-145) mmol/L Potassium 3.9 (3.6-5.0) mmol/L Chloride 97.4 L (98-107) mmol/L Carbon Dioxide 24 (22-30) mmol/L BUN 48 H (7-17) mg/dL Creatinine 5.4 H (0.7-1.2) mg/dL Glucose 77 (65-100) mg/dL Calcium 8.3 L (8.4-10.2) mg/dL - Imaging and Cardiology EKG: report reviewed
[2017-11-04] MEDS: HEPARIN IV PRN (13:32)
--- NOTE | 2017-11-04 15:04 | Anesthesia Consultation ---
Anesthesia Consult and Med Hx Date of service: 11/04/17 - Pulmonary Exam CTA: Yes - Cardiac Exam Cardiac Exam: RRR - Pre-Operative Health Status ASA Pre-Surgery Classification: ASA4 Proposed Anesthetic Plan: General - Pulmonary Hx Smoking: Yes Hx Asthma: No COPD: No Hx Pneumonia: No - Cardiovascular System Hx Hypertension: Yes - Central Nervous System CVA: Yes (quadraparesis) Hx Psychiatric Problems: No - Gastrointestinal Hx Gastroesophageal Reflux Disease: Yes (PEG tube in situ, GI bleed) - Endocrine Hx Renal Disease: Yes (kidney insufficiency) Hx End Stage Renal Disease: No - Hematic Hx Anemia: Yes (recieved 2 units of blood) - Other Systems Hx Cancer: No - Additional Comments Anesthesia Medical History Comments: Pt. appears to be aware, but is unable to effectively communicate. Daughter has POA.
--- NOTE | 2017-11-04 15:05 | Anesthesia Day of Surgery ---
Anesthesia Day of Surgery - Day of Surgery Patient Examined: Yes Patient H&P Reviewed: Yes Patient is NPO: Yes
[2017-11-04] MEDS ORDERED: AMIDATE IV ONE (15:09)
[2017-11-04] MEDS ORDERED: WATER FOR IRRIG STERILE IR ONE (15:10)
[2017-11-04] MEDS ORDERED: NACL 0.9% 1000 ML 1,000 ML ONE (15:10)
[2017-11-04] MEDS ORDERED: ANCEF/STERILE WATER 2 GM/20 ML 2 GM/20 ML SYRINGE IV ONE (15:24)
--- NOTE | 2017-11-04 15:56 | Post Operative Note ---
Pre-op diagnosis: dysphagia, weight loss Post-op diagnosis: same Findings: EGD; hiatal hernia - gastritis - negative other Procedure: EGD/PEG Anesthesia: MAC Surgeon: CONNIE HAY Estimated blood loss: none Pathology: none Specimen disposition: to lab Condition: stable Disposition: floor
[2017-11-04] MEDS: cefTRIAXone 1 GM in NACL 0.9% 20 ML IV SCH (17:06)
--- NOTE | 2017-11-04 22:04 | Operative Report ---
PROCEDURE: Esophagogastroduodenoscopy and PEG tube placement. INDICATION: 1. Dysphagia. 2. Weight loss. 3. Nutrition support. MEDICATIONS: Propofol per [employer]. COMPLICATIONS: None. DESCRIPTION OF PROCEDURE: The patient brought to procedure suite. The patient had the procedure discussed with family at length. All risks, complications, and benefits discussed after which the patient's family gave consent for the procedure to be performed. The patient was placed in left lateral decubitus position. Mouth block was placed in the patient's oral cavity. After adequate sedation, medication as above, endoscope was introduced into the mouth and brought to the level of the second portion of duodenum. Retroflexion view performed. The patient's vital signs remained stable throughout the procedure. FINDINGS: There was a small to medium hiatal hernia noted at GE junction, 30 cm from the gums. The esophagus otherwise appeared to be normal. Previous PEG tube scar was noted in the gastric body. Mild gastritis noted. The stomach otherwise appeared to be normal. Duodenum appeared to be normal. Retroflexion view performed in the stomach showed no other pathology other than noted above. After this, especially using standard technique and transillumination, the area for adequate placement of the PEG tube was then found. A 20-Brazilian pull PEG was then placed with bumper noted to be at 3.5 cm. Post-procedure, the patient was satisfactory. The patient tolerated the procedure well. No complications of procedure. IMPRESSION: 1. Hiatal hernia. 2. Previous PEG tube site noted in the gastric body intact. 3. Otherwise, normal EGD. 4. PEG tube placed without obvious complications. RECOMMENDATIONS: 1. Standard PEG tube management, see orders. 2. Watch for signs of bleeding, infection. 3. Nutrition support. 4. We will follow up in a.m. JOB# [id number] CAB/NTS
[2017-11-04] MEDS: ZOLOFT PO SCH (22:50)
[2017-11-05] MEDS: NITRO DUR TD SCH (07:24)
[2017-11-05] MEDS ORDERED: SODIUM BICARBONATE FEEDTUBE PRN (08:31)
[2017-11-05] MEDS ORDERED: PANCREAZE DR 10,500 UNIT FEEDTUBE PRN (08:31)
[2017-11-05] MEDS ORDERED: SIMPLE SYRUP FEEDTUBE PRN ×2 (08:31)
[2017-11-05] MEDS: PROTONIX PO SCH ×2 (08:37→11:17)
[2017-11-05] MEDS: APRESOLINE PO SCH ×4 (08:38→22:55)
--- NOTE | 2017-11-05 11:12 | Gastroenterology Progress Note ---
Assessment and Plan - Patient Problems (1) Inability to swallow Current Visit: Yes Status: Acute Plan to address problem: S/p gastrostomy placement. Stable. OK to begin tube feedings from GI standpoint. Will request nutrition consult to initiate. Will s/o and f/u at your request. Thank you. (2) CVA (cerebral vascular accident) Current Visit: No Status: Chronic Subjective Date of service: 11/05/17 Interval history: Patient is non verbal. Objective - Constitutional Vitals: Temp Pulse Resp BP Pulse Ox 98.4 F 81 18 133/64 100 11/05/17 08:44 11/05/17 08:44 11/05/17 08:44 11/05/17 08:44 11/05/17 08:44 General appearance: no acute distress - EENT Eyes: PERRL, EOM intact ENT: hearing intact - Neck Neck: supple, normal ROM - Respiratory Respiratory effort: normal Respiratory: bilateral: CTA - Cardiovascular Rhythm: regular - Gastrointestinal General gastrointestinal: Present: soft, non-tender, non-distended, normal bowel sounds, other (G tube site clean and dry.) - Neurologic Neurological: disoriented - Labs CBC & Chem 7: 11/04/17 08:27 11/04/17 08:27
[2017-11-05] MEDS: COLACE PO SCH ×2 (11:17→22:55)
[2017-11-05] MEDS: ZESTRIL PO SCH (11:18)
[2017-11-05] MEDS: TOPROL XL PO SCH ×2 (11:18→22:55)
[2017-11-05] MEDS: NORVASC PO SCH (11:18)
[2017-11-05] MEDS: HEPARIN SUB-Q SCH ×2 (11:18→22:55)
--- NOTE | 2017-11-05 12:04 | Progress Note ---
Assessment and Plan - Patient Problems (1) Abnormal EKG Current Visit: Yes Status: Acute Plan to address problem: Patient has nonspecific, persistent inferolateral ST elevation. Continue clinical monitoring and management. Subjective Date of service: 11/05/17 Interval history: Patient looks and feels comfortable, in no acute distress. Vital signs and hemodynamic status stable. Objective Vital Signs Temp Pulse Resp BP BP Pulse Ox 11/05/17 08:44 98.4 F 81 18 133/64 100 11/05/17 07:24 91 H 130/55 11/05/17 04:42 98.5 F 79 20 130/55 100 11/05/17 00:37 98.7 F 96 H 20 140/65 95 11/04/17 22:50 89 101/62 11/04/17 22:00 91 H 11/04/17 19:40 98.7 F 89 20 101/62 100 11/04/17 16:57 98.2 F 92 H 16 149/71 100 11/04/17 16:45 88 15 140/60 100 11/04/17 16:30 91 H 14 140/65 100 11/04/17 16:15 89 17 134/61 100 11/04/17 16:02 98.4 F 90 19 133/65 100 11/04/17 14:10 98.2 F 85 18 142/80 11/04/17 14:00 85 140/80 11/04/17 13:45 84 140/74 11/04/17 13:30 83 125/77 11/04/17 13:15 78 130/66 11/04/17 13:00 76 125/69 11/04/17 12:45 76 135/70 11/04/17 12:30 76 115/63 11/04/17 12:15 81 99/56 - Physical Examination General: No Apparent Distress HEENT: Positive: PERRL Neck: Positive: neck supple Cardiac: Positive: Reg Rate and Rhythm Lungs: Positive: Decreased Breath Sounds Neuro: Positive: Weakness Abdomen: Positive: Soft Skin: Positive: Clear Extremities: Absent: edema - Imaging and Cardiology EKG: report reviewed
--- NOTE | 2017-11-05 12:19 | Progress Note ---
Assessment and Plan Assessment and plan: CVA with aphasia. Patient reportedly aphasic 3 weeks. Continue stroke protocol. Follow-up MRI/MRA, EEG and echocardiogram. Carotid Dopplers reveal < 50% stenosis. Check EEG. Neurology following. Leukocytosis. Etiology is unknown. Improved. Continue empiric antibiotics. ESRD on hemodialysis. Continue hemodialysis per nephrology. Hypertension. Continue antihypertensive medications. Oropharyngeal dysphagia. S/p gastrostomy placement. Start TF per Nutrition Abnormal EKG. Cardiology following. History Interval history: No new issues overnight. Hospitalist Physical - Constitutional Vitals: Temp Pulse Resp BP Pulse Ox 98.4 F 81 18 133/64 100 11/05/17 08:44 11/05/17 08:44 11/05/17 08:44 11/05/17 08:44 11/05/17 08:44 General appearance: Present: no acute distress - EENT Eyes: Present: PERRL, EOM intact ENT: hearing intact, clear oral mucosa, dentition normal - Neck Neck: Present: supple, normal ROM - Respiratory Respiratory effort: normal Respiratory: bilateral: CTA - Cardiovascular Rhythm: regular Heart Sounds: Present: S1 & S2. Absent: gallop, rub - Extremities Extremities: no ischemia, No edema, Full ROM - Abdominal General gastrointestinal: soft, non-tender, non-distended, normal bowel sounds - Integumentary Integumentary: Present: clear, warm, dry - Neurologic Neurologic: CNII-XII intact, moves all extremities Results - Labs CBC & Chem 7: 11/04/17 08:27 11/04/17 08:27 Labs: Laboratory Last Values WBC 13.5 K/mm3 (4.5-11.0) H 11/04/17 08:27 RBC 3.07 M/mm3 (3.65-5.03) L 11/04/17 08:27 Hgb 8.4 gm/dl (10.1-14.3) L 11/04/17 08:27 Hct 26.5 % (30.3-42.9) L 11/04/17 08:27 MCV 86 fl (79-97) 11/04/17 08:27 MCH 27 pg (28-32) L 11/04/17 08:27 MCHC 32 % (30-34) 11/04/17 08:27 RDW 16.9 % (13.2-15.2) H 11/04/17 08:27 Plt Count 287 K/mm3 (140-440) 11/04/17 08:27 Lymph % (Auto) 7.2 % (13.4-35.0) L 11/04/17 08:27 [place] % (Auto) 6.9 % (0.0-7.3) 11/04/17 08:27 Eos % (Auto) 0.5 % (0.0-4.3) 11/04/17 08:27 Baso % (Auto) 0.4 % (0.0-1.8) 11/04/17 08:27 Lymph # 1.0 K/mm3 (1.2-5.4) L 11/04/17 08:27 [place] # 0.9 K/mm3 (0.0-0.8) H 11/04/17 08:27 Eos # 0.1 K/mm3 (0.0-0.4) 11/04/17 08: Baso # 0.1 K/mm3 (0.0-0.1) 11/04/17 08:27 Add Manual Diff Complete 11/02/17 15:28 Total Counted 100 11/02/17 15:28 Seg Neutrophils % 85.0 % (40.0-70.0) H 11/04/17 08:27 Seg Neuts % (Manual) 94.0 % (40.0-70.0) H 11/02/17 15:28 Band Neutrophils % 0 % 11/02/17 15:28 Lymphocytes % (Manual) 3.0 % (13.4-35.0) L 11/02/17 15:28 Reactive Lymphs % (Man) 0 % 11/02/17 15:28 Monocytes % (Manual) 3.0 % (0.0-7.3) 11/02/17 15:28 Eosinophils % (Manual) 0 % (0.0-4.3) 11/02/17 15:28 Basophils % (Manual) 0 % (0.0-1.8) 11/02/17 15:28 Metamyelocytes % 0 % 11/02/17 15:28 Myelocytes % 0 % 11/02/17 15:28 Promyelocytes % 0 % 11/02/17 15:28 Blast Cells % 0 % 11/02/17 15:28 Nucleated RBC % Not Reportable 11/02/17 15:28 Seg Neutrophils # 11.5 K/mm3 (1.8-7.7) H 11/04/17 08:27 Seg Neutrophils # Man 19.6 K/mm3 (1.8-7.7) H 11/02/17 15:28 Band Neutrophils # 0.0 K/mm3 11/02/17 15:28 Lymphocytes # (Manual) 0.6 K/mm3 (1.2-5.4) L 11/02/17 15:28 Abs React Lymphs (Man) 0.0 K/mm3 11/02/17 15:28 Monocytes # (Manual) 0.6 K/mm3 (0.0-0.8) 11/02/17 15:28 Eosinophils # (Manual) 0.0 K/mm3 (0.0-0.4) 11/02/17 15:28 Basophils # (Manual) 0.0 K/mm3 (0.0-0.1) 11/02/17 15:28 Metamyelocytes # 0.0 K/mm3 11/02/17 15:28 Myelocytes # 0.0 K/mm3 11/02/17 15:28 Promyelocytes # 0.0 K/mm3 11/02/17 15:28 Blast Cells # 0.0 K/mm3 11/02/17 15:28 WBC Morphology Not Reportable 11/02/17 15:28 Hypersegmented Neuts Not Reportable 11/02/17 15:28 Hyposegmented Neuts Not Reportable 11/02/17 15:28 Hypogranular Neuts Not Reportable 11/02/17 15:28 Smudge Cells Not Reportable 11/02/17 15:28 Toxic Granulation Not Reportable 11/02/17 15:28 Toxic Vacuolation Not Reportable 11/02/17 15:28 Dohle Bodies Not Reportable 11/02/17 15:28 Pelger-Huet Anomaly Not Reportable 11/02/17 15:28 Lupis Rods Not Reportable 11/02/17 15:28 Platelet Estimate Cons 11/02/17 15:28 Clumped Platelets Not Reportable 11/02/17 15:28 Plt Clumps, EDTA Not Reportable 11/02/17 15:28 Large Platelets Not Reportable 11/02/17 15:28 Giant Platelets Not Reportable 11/02/17 15:28 Platelet Satelliting Not Reportable 11/02/17 15:28 Plt Morphology Comment Not Reportable 11/02/17 15:28 RBC Morphology Not Reportable 11/02/17 15:28 Dimorphic RBCs Not Reportable 11/02/17 15:28 Polychromasia Not Reportable 11/02/17 15:28 Hypochromasia Few 11/02/17 15:28 Poikilocytosis Not Reportable 11/02/17 15:28 Anisocytosis 1+ 11/02/17 15:28 Microcytosis Not Reportable 11/02/17 15:28 Macrocytosis Not Reportable 11/02/17 15:28 Spherocytes Not Reportable 11/02/17 15:28 Pappenheimer Bodies Not Reportable 11/02/17 15:28 Sickle Cells Not Reportable 11/02/17 15:28 Target Cells Rare 11/02/17 15:28 Tear Drop Cells Not Reportable 11/02/17 15:28 Ovalocytes Not Reportable 11/02/17 15:28 Helmet Cells Not Reportable 11/02/17 15:28 [place]-Soso Bodies Not Reportable 11/02/17 15:28 [place] Rings Not Reportable 11/02/17 15:28 [place] Cells Not Reportable 11/02/17 15:28 Bite Cells Not Reportable 11/02/17 15:28 Crenated Cell Not Reportable 11/02/17 15:28 Elliptocytes Not Reportable 11/02/17 15:28 Acanthocytes (Spur) Not Reportable 11/02/17 15:28 Rouleaux Not Reportable 11/02/17 15:28 Hemoglobin C Crystals Not Reportable 11/02/17 15:28 Schistocytes Not Reportable 11/02/17 15:28 Malaria parasites Not Reportable 11/02/17 15:28 Tre Bodies Not Reportable 11/02/17 15:28 Hem Pathologist Commnt No 11/02/17 15:28 PT 15.7 Sec. (12.2-14.9) H 11/04/17 08:27 INR 1.19 (0.87-1.13) H 11/04/17 08:27 APTT 30.7 Sec. (24.2-36.6) 11/04/17 08:27 Sodium 139 mmol/L (137-145) 11/04/17 08:27 Potassium 3.9 mmol/L (3.6-5.0) 11/04/17 08:27 Chloride 97.4 mmol/L (98-107) L 11/04/17 08:27 Carbon Dioxide 24 mmol/L (22-30) 11/04/17 08:27 Anion Gap 22 mmol/L 11/04/17 08:27 BUN 48 mg/dL (7-17) H 11/04/17 08:27 Creatinine 5.4 mg/dL (0.7-1.2) H 11/04/17 08:27 Estimated GFR 10 ml/min 11/04/17 08:27 BUN/Creatinine Ratio 9 % 11/04/17 08:27 Glucose 77 mg/dL (65-100) 11/04/17 08:27 POC Glucose 192 (70-105) H 11/02/17 16:45 Hemoglobin A1c 5.2 % (4-6) 11/02/17 21:10 Calcium 8.3 mg/dL (8.4-10.2) L 11/04/17 08:27 Total Bilirubin 0.30 mg/dL (0.1-1.2) 11/03/17 04:08 AST 15 units/L (5-40) 11/03/17 04:08 ALT 11 units/L (7-56) 11/03/17 04:08 Alkaline Phosphatase 106 units/L (35-129) 11/03/17 04:08 Ammonia 24.0 umol/L (25-60) L 11/02/17 16:15 Total Creatine Kinase 45 units/L (30-135) 11/03/17 12:49 CK-MB (CK-2) 1.5 ng/mL (0.0-4.0) 11/03/17 12:49 CK-MB (CK-2) Rel Index 3.3 (0-4) 11/03/17 12:49 Troponin T 0.101 ng/mL (0.00-0.029) H* 11/03/17 12:49 Total Protein 7.1 g/dL (6.3-8.2) 11/03/17 04:08 Albumin 2.1 g/dL (3.9-5) L 11/03/17 04:08 Albumin/Globulin Ratio 0.4 % 11/03/17 04:08 Triglycerides 112 mg/dL (2-149) 11/03/17 12:49 Cholesterol 71 mg/dL (50-199) 11/03/17 12:49 LDL Cholesterol Direct 41 mg/dL (50-130) L 11/03/17 12:49 HDL Cholesterol 8 mg/dL (40-59) L 11/03/17 12:49 Cholesterol/HDL Ratio 8.87 % 11/03/17 12:49 TSH 0.357 mlU/mL (0.270-4.200) 11/02/17 15:28 Urine Color [place] (Yellow) 11/02/17 16:48 Urine Turbidity Clear (Clear) 11/02/17 16:48 Urine pH 5.0 (5.0-7.0) 11/02/17 16:48 Ur Specific [place] 1.024 (1.003-1.030) 11/02/17 16:48 Urine Protein >500 mg/dL (Negative) 11/02/17 16:48 Urine Glucose (UA) Neg mg/dL (Negative) 11/02/17 16:48 Urine Ketones Tr mg/dL (Negative) 11/02/17 16:48 Urine Blood Sm (Negative) 11/02/17 16:48 Urine Nitrite Neg (Negative) 11/02/17 16:48 Urine Bilirubin Sm (Negative) 11/02/17 16:48 Urine Ictotest Negative (Negative) 11/02/17 16:48 Urine Urobilinogen 2.0 mg/dL (<2.0) 11/02/17 16:48 Ur Leukocyte Esterase Sm (Negative) 11/02/17 16:48 Urine WBC (Auto) 6.0 /HPF (0.0-6.0) 11/02/17 16:48 Urine RBC (Auto) 4.0 /HPF (0.0-6.0) 11/02/17 16:48 U Epithel Cells (Auto) < 1.0 /HPF (0-13.0) 11/02/17 16:48 Urine Bacteria (Auto) 1+ /HPF (Negative) 11/02/17 16:48 Amorphous Crystals Few 11/02/17 16:48 Urine Mucus Few /HPF 11/02/17 16:48 Urine Opiates Screen Presumptive negative 11/02/17 16:48 Urine Methadone Screen Presumptive negative 11/02/17 16:48 Ur Barbiturates Screen Presumptive negative 11/02/17 16:48 Ur Phencyclidine Scrn Presumptive negative 11/02/17 16:48 Ur Amphetamines Screen Presumptive positive 11/02/17 16:48 U Benzodiazepines Scrn Presumptive negative 11/02/17 16:48 Urine Cocaine Screen Presumptive negative 11/02/17 16:48 U Marijuana (THC) Screen Presumptive negative 11/02/17 16:48 Drugs of Abuse Note Disclamer 11/02/17 16:48 Plasma/Serum Alcohol < 0.01 gm% (0-0.07) 11/02/17 15:28
--- NOTE | 2017-11-05 12:50 | Progress Note ---
Assessment and Plan Impression: * End stage renal disease on HD * Malnutrition * Hypertension * Anemia secondary to ESRD Plan: * Hemodialysis- continue MWF schedule * UF as tolerated * PEG placement and usage per GI * Note cardiology recommendation * Dose medications for renal function Subjective Date of service: 11/05/17 Principal diagnosis: esrd Interval history: resting in bed today Objective - Exam Narrative Exam: General appearance: Present: no acute distress - EENT Eyes: Present: PERRL, EOM intact ENT: hearing intact, clear oral mucosa, dentition normal - Neck Neck: Present: supple, normal ROM - Respiratory Respiratory effort: normal Respiratory: bilateral: CTA - Cardiovascular Rhythm: regular Heart Sounds: Present: S1 & S2. Absent: gallop, rub - Extremities Extremities: no ischemia, No edema, Full ROM - Abdominal General gastrointestinal: soft, non-tender, non-distended, normal bowel sounds - Integumentary Integumentary: Present: clear, warm, dry - Neurologic Neurologic: CNII-XII intact, moves all extremities - Vital Signs Vital signs: Vital Signs - 12hr 11/05/17 11/05/17 11/05/17 04:42 07:24 08:44 Temperature 98.5 F 98.4 F Pulse Rate 79 91 H 81 Respiratory 20 18 Rate Blood Pressure 130/55 130/55 Blood Pressure 133/64 [Left] O2 Sat by Pulse 100 100 Oximetry 11/05/17 12:21 Temperature 98.4 F Pulse Rate 63 Respiratory 20 Rate Blood Pressure Blood Pressure 121/57 [Left] O2 Sat by Pulse 97 Oximetry - Lab 11/04/17 08:27 11/04/17 08:27 Most recent lab results Calcium 8.3 mg/dL (8.4-10.2) L 11/04/17 08:27
[2017-11-05] MEDS ORDERED: ATIVAN IV ONE (13:15)
--- NOTE | 2017-11-05 13:16 | Consultation ---
History of Present Illness Consult date: 11/05/17 History of present illness: reviewed and monitored the chart went over recent notes and lab will continue close follow up Thanks Past History Past Medical History: COPD, diabetes, ESRD (on HD), heart failure, hypertension , stroke Past Surgical History: Other (previous PEG, left AKA) Social history: other (half-way resident) Family history: hypertension Medications and Allergies Allergies Allergy/AdvReac Type Severity Reaction Status Date / Time guaifenesin [From Robitussin] Allergy Unknown Verified 04/19/17 21:22 Home Medications Medication Instructions Recorded Confirmed Last Taken Type Acetaminophen [Acetaminophen ER 650 mg PO Q8HR PRN 04/13/17 11/03/17 Unknown History TAB] Magnesium Hydroxide [Milk of 30 ml PO Q72HR PRN 04/13/17 11/03/17 Unknown History Magnesia] cloNIDine [Clonidine] 1 each TD QWEEK 04/13/17 11/03/17 Unknown History traMADol [Ultram 50 MG tab] 50 mg PO Q8H PRN 04/13/17 11/03/17 Unknown History Aspirin EC [Ecotrin] 325 mg PO DAILY 08/22/17 11/03/17 Unknown History Docusate Sodium [Colace CAP] 100 mg PO BID 08/22/17 11/03/17 Unknown History Ranitidine HCl [Zantac 300 MG TAB] 300 mg PO BID 08/22/17 11/03/17 Unknown History Sennosides [Vegetable Laxative] 17.2 mg PO HS 08/22/17 11/03/17 Unknown History ALBUTEROL NEB's [Proventil 0.083% 2.5 mg IH Q4HRT PRN #50 nebu 09/02/17 Unknown Rx NEBS] AtorvaSTATin [Lipitor] 40 mg PO QHS #30 tablet 09/02/17 11/03/17 Unknown Rx Hydrochlorothiazide [HCTZ] 25 mg PO QAM #30 tablet 09/02/17 11/03/17 Unknown Rx Lisinopril [Zestril] 40 mg PO QAM #30 tablet 09/02/17 11/03/17 Unknown Rx Metoprolol Xl [Metoprolol 50 mg PO BID #60 tablet 09/02/17 11/03/17 Unknown Rx SUCCINATE ER TAB] Pantoprazole [Protonix TAB] 40 mg PO QAM #30 tablet 09/02/17 11/03/17 Unknown Rx Sertraline [Zoloft] 50 mg PO HS #30 tablet 09/02/17 11/03/17 Unknown Rx Tamsulosin [Flomax] 0.4 mg PO QAM #30 capsule 09/02/17 11/03/17 Unknown Rx amLODIPine [Norvasc] 10 mg PO QAM #30 tablet 09/02/17 11/03/17 Unknown Rx oxyCODONE /ACETAMINOPHEN [Percocet 1 tab PO Q6H PRN #30 tablet 09/02/17 Unknown Rx 5/325 mg] Hydralazine HCl 50 mg PO TID #90 tablet 09/28/17 11/03/17 Unknown Rx Active Meds: Active Medications Acetaminophen (Tylenol) 650 mg PO Q4H PRN PRN Reason: Pain MILD(1-3)/Fever >100.5/GUO Albuterol (Proventil) 2.5 mg IH Q4HRT PRN PRN Reason: Shortness Of Breath Amlodipine Besylate (Norvasc) 10 mg PO QAM [facility] Last Admin: 11/05/17 11:18 Dose: 10 mg Lipase/Protease/Amylase (Pancreaze Dr 10,500 Unit) 1 each FEEDTUBE PRN PRN PRN Reason: For Clogged Feeding Tube Atorvastatin Calcium (Lipitor) 40 mg PO QHS [facility] Last Admin: 11/04/17 22:50 Dose: 40 mg Bisacodyl (Dulcolax) 10 mg MS QDAY PRN PRN Reason: Constipation unrelieved by MOM Clonidine HCl (Catapres-Tts Patch) 0.3 mg TD Th [facility] Last Admin: 11/03/17 09:12 Dose: 0.3 mg Docusate Sodium (Colace) 100 mg PO BID [facility] Last Admin: 11/05/17 11:17 Dose: 100 mg Epoetin Philip (Epogen) 20,000 unit IV CHERELLE PRN PRN Reason: hemodialysis Last Admin: 11/04/17 13:35 Dose: 20,000 unit Heparin Sodium (Porcine) (Heparin) 5,000 unit SUB-Q Q12HR [facility] Last Admin: 11/05/17 11:18 Dose: 5,000 unit Heparin Sodium (Porcine) (Heparin) 5,000 unit IV CHERELLE PRN PRN Reason: hemodialysis Last Admin: 11/04/17 13:32 Dose: 5,000 unit Hydralazine HCl (Apresoline) 50 mg PO TID [facility] Last Admin: 11/05/17 11:17 Dose: 50 mg Dextrose/Sodium Chloride (D5ns) 1,000 mls @ 75 mls/hr IV DIRECT [facility] Ceftriaxone Sodium 1 gm/ (Sodium Chloride) 20 mls @ 20 mls/10 min IV Q24HR REYES PRN Reason: Protocol Last Admin: 11/04/17 17:06 Dose: 20 mls/10 min Sodium Chloride (Nacl 0.9%) 100 mls @ 999 mls/hr IV CHERELLE PRN PRN Reason: Hypotension Sodium Chloride (Nacl 0.9% 1000 Ml) 1,000 mls @ 50 mls/hr IV DIRECT [facility] Lisinopril (Zestril) 40 mg PO QAM [facility] Last Admin: 11/05/17 11:18 Dose: 40 mg Lorazepam (Ativan) 1 mg IV ONCE ONE Stop: 11/05/17 13:16 Magnesium Hydroxide (Milk Of Magnesia) 30 ml PO Q4H PRN PRN Reason: Constipation Metoprolol Succinate (Toprol Xl) 50 mg PO BID [facility] Last Admin: 11/05/17 11:18 Dose: 50 mg Morphine Sulfate (Morphine) 2 mg IV Q4H PRN PRN Reason: Pain, Moderate (4-6) Nitroglycerin (Nitro Dur) 0.4 mg TD QDAY@0600 [facility] Last Admin: 11/05/17 07:24 Dose: 0.4 mg Ondansetron HCl (Zofran) 4 mg IV Q8H PRN PRN Reason: N/V unrelieved by Reglan Oxycodone/Acetaminophen (Percocet 5/325) 1 tab PO Q6H PRN PRN Reason: Pain Pantoprazole Sodium (Protonix) 40 mg PO QAM [facility] Last Admin: 11/05/17 11:17 Dose: 40 mg Sertraline HCl (Zoloft) 50 mg PO HS [facility] Last Admin: 11/04/17 22:50 Dose: 50 mg Simple Syrup (Simple Syrup) 15 ml FEEDTUBE PRN PRN PRN Reason: Hypoglycemia Simple Syrup (Simple Syrup) 30 ml FEEDTUBE PRN PRN PRN Reason: Hypoglycemia Sodium Bicarbonate (Sodium Bicarbonate) 325 mg FEEDTUBE PRN PRN PRN Reason: For Clogged Feeding Tube Sodium Chloride (Sodium Chloride Flush Syringe 10 Ml) 10 ml IV PRN PRN PRN Reason: LINE FLUSH Tramadol HCl (Ultram) 50 mg PO Q8H PRN PRN Reason: Pain Physical Examination - Vital Signs Vital Signs: Vital Signs Pulse Resp 94 H 12 11/02/17 14:48 11/02/17 14:48 Results - Laboratory Findings CBC and BMP: 11/04/17 08:27 11/04/17 08:27 Abnormal Lab Findings: Abnormal Labs 11/02/17 11/02/17 11/02/17 15:28 16:15 16:15 WBC 20.8 H RBC Hgb 10.0 L Hct MCH 27 L RDW 16.7 H Lymph % (Auto) Lymph # [place] # Seg Neutrophils % Seg Neuts % (Manual) 94.0 H Lymphocytes % (Manual) 3.0 L Seg Neutrophils # Seg Neutrophils # Man 19.6 H Lymphocytes # (Manual) 0.6 L PT INR Potassium 3.5 L Chloride 97.1 L BUN 24 H Creatinine 3.2 H Glucose 166 H POC Glucose Calcium 7.9 L Ammonia 24.0 L Troponin T Albumin 1.9 L LDL Cholesterol Direct HDL Cholesterol 11/02/17 11/03/17 11/03/17 16:45 04:08 04:08 WBC 18.6 H RBC 3.02 L Hgb 7.9 L Hct 26.3 L D MCH 26 L RDW 17.0 H Lymph % (Auto) 6.4 L Lymph # [place] # 1.0 H Seg Neutrophils % 87.4 H Seg Neuts % (Manual) Lymphocytes % (Manual) Seg Neutrophils # 16.2 H Seg Neutrophils # Man Lymphocytes # (Manual) PT INR Potassium Chloride 96.0 L BUN 34 H Creatinine 3.8 H Glucose POC Glucose 192 H Calcium 8.3 L Ammonia Troponin T Albumin 2.1 L LDL Cholesterol Direct HDL Cholesterol 11/03/17 11/04/17 11/04/17 12:49 08:27 08:27 WBC 13.5 H RBC 3.07 L Hgb 8.4 L Hct 26.5 L MCH 27 L RDW 16.9 H Lymph % (Auto) 7.2 L Lymph # 1.0 L [place] # 0.9 H Seg Neutrophils % 85.0 H Seg Neuts % (Manual) Lymphocytes % (Manual) Seg Neutrophils # 11.5 H Seg Neutrophils # Man Lymphocytes # (Manual) PT INR Potassium Chloride 97.4 L BUN 48 H Creatinine 5.4 H Glucose POC Glucose Calcium 8.3 L Ammonia Troponin T 0.101 H* Albumin LDL Cholesterol Direct 41 L HDL Cholesterol 8 L 11/04/17 08:27 WBC RBC Hgb Hct MCH RDW Lymph % (Auto) Lymph # [place] # Seg Neutrophils % Seg Neuts % (Manual) Lymphocytes % (Manual) Seg Neutrophils # Seg Neutrophils # Man Lymphocytes # (Manual) PT 15.7 H INR 1.19 H Potassium Chloride BUN Creatinine Glucose POC Glucose Calcium Ammonia Troponin T Albumin LDL Cholesterol Direct HDL Cholesterol
[2017-11-05] MEDS: cefTRIAXone 1 GM in NACL 0.9% 20 ML IV SCH (15:37)
[2017-11-05] MEDS: ZOLOFT PO SCH (22:55)
[2017-11-06] MEDS: NITRO DUR TD SCH (06:48)
--- NOTE | 2017-11-06 07:41 | Gastroenterology Progress Note ---
Assessment and Plan - Patient Problems (1) Inability to swallow Current Visit: Yes Status: Acute Plan to address problem: Stable and tolerating tube feeds. Will s/o and f/u at your request. Thank you. (2) CVA (cerebral vascular accident) Current Visit: No Status: Chronic Subjective Date of service: 11/06/17 Principal diagnosis: Inability to swallow. S/p PEG Interval history: Non verbal. Objective - Constitutional Vitals: Temp Pulse Resp BP Pulse Ox 98.5 F 86 17 112/49 100 11/06/17 03:19 11/06/17 06:48 11/06/17 03:24 11/06/17 06:48 11/06/17 03:19 General appearance: no acute distress - EENT ENT: hearing intact - Neck Neck: supple, normal ROM - Respiratory Respiratory effort: normal Respiratory: bilateral: CTA - Cardiovascular Rhythm: regular - Gastrointestinal General gastrointestinal: Present: soft, non-tender, non-distended, normal bowel sounds, other ( g tube site clean and dry) - Integumentary Integumentary: Present: clear, warm, dry - Neurologic Neurological: disoriented - Labs CBC & Chem 7: 11/04/17 08:27 11/04/17 08:27 Labs: Laboratory Results - last 24 hr 11/05/17 21:34 POC Glucose 98
--- NOTE | 2017-11-06 10:19 | Progress Note ---
Assessment and Plan Assessment and plan: CVA with aphasia. 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 Continue stroke protocol. Follow-up EEG and echocardiogram. Carotid Dopplers reveal <50% stenosis. Patient unable to complete MRI because she could not hold still. Neurology following. Leukocytosis. Etiology is unknown. Improved. Continue empiric antibiotics. ESRD on hemodialysis. Continue hemodialysis per nephrology. Hypertension. Continue antihypertensive medications. Oropharyngeal dysphagia. S/p gastrostomy placement. Start TF per Nutrition Abnormal EKG. Cardiology following. History Interval history: No new issues overnight. Patient unable to hold still for MRI yesterday. Hospitalist Physical - Constitutional Vitals: Temp Pulse Resp BP Pulse Ox 98.5 F 79 17 112/49 100 11/06/17 03:19 11/06/17 09:04 11/06/17 03:24 11/06/17 06:48 11/06/17 03:19 General appearance: Present: no acute distress - EENT Eyes: Present: PERRL, EOM intact ENT: hearing intact, clear oral mucosa, dentition normal - Neck Neck: Present: supple, normal ROM - Respiratory Respiratory effort: normal Respiratory: bilateral: CTA - Cardiovascular Rhythm: regular Heart Sounds: Present: S1 & S2. Absent: gallop, rub - Extremities Extremities: no ischemia, No edema, Full ROM - Abdominal General gastrointestinal: soft, non-tender, non-distended, normal bowel sounds - Integumentary Integumentary: Present: clear, warm, dry - Neurologic Neurologic: CNII-XII intact, moves all extremities Results - Labs CBC & Chem 7: 11/04/17 08:27 11/04/17 08:27 Labs: Laboratory Last Values WBC 13.5 K/mm3 (4.5-11.0) H 11/04/17 08:27 RBC 3.07 M/mm3 (3.65-5.03) L 11/04/17 08:27 Hgb 8.4 gm/dl (10.1-14.3) L 11/04/17 08:27 Hct 26.5 % (30.3-42.9) L 11/04/17 08:27 MCV 86 fl (79-97) 11/04/17 08:27 MCH 27 pg (28-32) L 11/04/17 08:27 MCHC 32 % (30-34) 11/04/17 08:27 RDW 16.9 % (13.2-15.2) H 11/04/17 08:27 Plt Count 287 K/mm3 (140-440) 11/04/17 08:27 Lymph % (Auto) 7.2 % (13.4-35.0) L 11/04/17 08:27 [place] % (Auto) 6.9 % (0.0-7.3) 11/04/17 08:27 Eos % (Auto) 0.5 % (0.0-4.3) 11/04/17 08:27 Baso % (Auto) 0.4 % (0.0-1.8) 11/04/17 08: Lymph # 1.0 K/mm3 (1.2-5.4) L 11/04/17 08:27 [place] # 0.9 K/mm3 (0.0-0.8) H 11/04/17 08:27 Eos # 0.1 K/mm3 (0.0-0.4) 11/04/17 08:27 Baso # 0.1 K/mm3 (0.0-0.1) 11/04/17 08:27 Add Manual Diff Complete 11/02/17 15:28 Total Counted 100 11/02/17 15:28 Seg Neutrophils % 85.0 % (40.0-70.0) H 11/04/17 08:27 Seg Neuts % (Manual) 94.0 % (40.0-70.0) H 11/02/17 15:28 Band Neutrophils % 0 % 11/02/17 15:28 Lymphocytes % (Manual) 3.0 % (13.4-35.0) L 11/02/17 15:28 Reactive Lymphs % (Man) 0 % 11/02/17 15:28 Monocytes % (Manual) 3.0 % (0.0-7.3) 11/02/17 15:28 Eosinophils % (Manual) 0 % (0.0-4.3) 11/02/17 15:28 Basophils % (Manual) 0 % (0.0-1.8) 11/02/17 15:28 Metamyelocytes % 0 % 11/02/17 15:28 Myelocytes % 0 % 11/02/17 15:28 Promyelocytes % 0 % 11/02/17 15:28 Blast Cells % 0 % 11/02/17 15:28 Nucleated RBC % Not Reportable 11/02/17 15:28 Seg Neutrophils # 11.5 K/mm3 (1.8-7.7) H 11/04/17 08:27 Seg Neutrophils # Man 19.6 K/mm3 (1.8-7.7) H 11/02/17 15:28 Band Neutrophils # 0.0 K/mm3 11/02/17 15:28 Lymphocytes # (Manual) 0.6 K/mm3 (1.2-5.4) L 11/02/17 15:28 Abs React Lymphs (Man) 0.0 K/mm3 11/02/17 15:28 Monocytes # (Manual) 0.6 K/mm3 (0.0-0.8) 11/02/17 15:28 Eosinophils # (Manual) 0.0 K/mm3 (0.0-0.4) 11/02/17 15:28 Basophils # (Manual) 0.0 K/mm3 (0.0-0.1) 11/02/17 15:28 Metamyelocytes # 0.0 K/mm3 11/02/17 15:28 Myelocytes # 0.0 K/mm3 11/02/17 15:28 Promyelocytes # 0.0 K/mm3 11/02/17 15:28 Blast Cells # 0.0 K/mm3 11/02/17 15:28 WBC Morphology Not Reportable 11/02/17 15:28 Hypersegmented Neuts Not Reportable 11/02/17 15:28 Hyposegmented Neuts Not Reportable 11/02/17 15:28 Hypogranular Neuts Not Reportable 11/02/17 15:28 Smudge Cells Not Reportable 11/02/17 15:28 Toxic Granulation Not Reportable 11/02/17 15:28 Toxic Vacuolation Not Reportable 11/02/17 15:28 Dohle Bodies Not Reportable 11/02/17 15:28 Pelger-Huet Anomaly Not Reportable 11/02/17 15:28 Lupis Rods Not Reportable 11/02/17 15:28 Platelet Estimate Cons 11/02/17 15:28 Clumped Platelets Not Reportable 11/02/17 15:28 Plt Clumps, EDTA Not Reportable 11/02/17 15:28 Large Platelets Not Reportable 11/02/17 15:28 Giant Platelets Not Reportable 11/02/17 15:28 Platelet Satelliting Not Reportable 11/02/17 15:28 Plt Morphology Comment Not Reportable 11/02/17 15:28 RBC Morphology Not Reportable 11/02/17 15:28 Dimorphic RBCs Not Reportable 11/02/17 15:28 Polychromasia Not Reportable 11/02/17 15:28 Hypochromasia Few 11/02/17 15:28 Poikilocytosis Not Reportable 11/02/17 15:28 Anisocytosis 1+ 11/02/17 15:28 Microcytosis Not Reportable 11/02/17 15:28 Macrocytosis Not Reportable 11/02/17 15:28 Spherocytes Not Reportable 11/02/17 15:28 Pappenheimer Bodies Not Reportable 11/02/17 15:28 Sickle Cells Not Reportable 11/02/17 15:28 Target Cells Rare 11/02/17 15:28 Tear Drop Cells Not Reportable 11/02/17 15:28 Ovalocytes Not Reportable 11/02/17 15:28 Helmet Cells Not Reportable 11/02/17 15:28 [place] Bodies Not Reportable 11/02/17 15:28 [place] Rings Not Reportable 11/02/17 15:28 Reji Cells Not Reportable 11/02/17 15:28 Bite Cells Not Reportable 11/02/17 15:28 Crenated Cell Not Reportable 11/02/17 15:28 Elliptocytes Not Reportable 11/02/17 15:28 Acanthocytes (Spur) Not Reportable 11/02/17 15:28 Rouleaux Not Reportable 11/02/17 15:28 Hemoglobin C Crystals Not Reportable 11/02/17 15:28 Schistocytes Not Reportable 11/02/17 15:28 Malaria parasites Not Reportable 11/02/17 15:28 Tre Bodies Not Reportable 11/02/17 15:28 Hem Pathologist Commnt No 11/02/17 15:28 PT 15.7 Sec. (12.2-14.9) H 11/04/17 08:27 INR 1.19 (0.87-1.13) H 11/04/17 08:27 APTT 30.7 Sec. (24.2-36.6) 11/04/17 08:27 Sodium 139 mmol/L (137-145) 11/04/17 08:27 Potassium 3.9 mmol/L (3.6-5.0) 11/04/17 08:27 Chloride 97.4 mmol/L (98-107) L 11/04/17 08:27 Carbon Dioxide 24 mmol/L (22-30) 11/04/17 08:27 Anion Gap 22 mmol/L 11/04/17 08:27 BUN 48 mg/dL (7-17) H 11/04/17 08:27 Creatinine 5.4 mg/dL (0.7-1.2) H 11/04/17 08:27 Estimated GFR 10 ml/min 11/04/17 08:27 BUN/Creatinine Ratio 9 % 11/04/17 08:27 Glucose 77 mg/dL (65-100) 11/04/17 08:27 POC Glucose 98 (70-105) 11/05/17 21:34 Hemoglobin A1c 5.2 % (4-6) 11/02/17 21:10 Calcium 8.3 mg/dL (8.4-10.2) L 11/04/17 08:27 Total Bilirubin 0.30 mg/dL (0.1-1.2) 11/03/17 04:08 AST 15 units/L (5-40) 11/03/17 04:08 ALT 11 units/L (7-56) 11/03/17 04:08 Alkaline Phosphatase 106 units/L (35-129) 11/03/17 04:08 Ammonia 24.0 umol/L (25-60) L 11/02/17 16:15 Total Creatine Kinase 45 units/L (30-135) 11/03/17 12:49 CK-MB (CK-2) 1.5 ng/mL (0.0-4.0) 11/03/17 12:49 CK-MB (CK-2) Rel Index 3.3 (0-4) 11/03/17 12:49 Troponin T 0.101 ng/mL (0.00-0.029) H* 11/03/17 12:49 Total Protein 7.1 g/dL (6.3-8.2) 11/03/17 04:08 Albumin 2.1 g/dL (3.9-5) L 11/03/17 04:08 Albumin/Globulin Ratio 0.4 % 11/03/17 04:08 Triglycerides 112 mg/dL (2-149) 11/03/17 12:49 Cholesterol 71 mg/dL (50-199) 11/03/17 12:49 LDL Cholesterol Direct 41 mg/dL (50-130) L 11/03/17 12:49 HDL Cholesterol 8 mg/dL (40-59) L 11/03/17 12:49 Cholesterol/HDL Ratio 8.87 % 11/03/17 12:49 TSH 0.357 mlU/mL (0.270-4.200) 11/02/17 15:28 Urine Color [place] (Yellow) 11/02/17 16:48 Urine Turbidity Clear (Clear) 11/02/17 16:48 Urine pH 5.0 (5.0-7.0) 11/02/17 16:48 Ur Specific [place] 1.024 (1.003-1.030) 11/02/17 16:48 Urine Protein >500 mg/dL (Negative) 11/02/17 16:48 Urine Glucose (UA) Neg mg/dL (Negative) 11/02/17 16:48 Urine Ketones Tr mg/dL (Negative) 11/02/17 16:48 Urine Blood Sm (Negative) 11/02/17 16:48 Urine Nitrite Neg (Negative) 11/02/17 16:48 Urine Bilirubin Sm (Negative) 11/02/17 16:48 Urine Ictotest Negative (Negative) 11/02/17 16:48 Urine Urobilinogen 2.0 mg/dL (<2.0) 11/02/17 16:48 Ur Leukocyte Esterase Sm (Negative) 11/02/17 16:48 Urine WBC (Auto) 6.0 /HPF (0.0-6.0) 11/02/17 16:48 Urine RBC (Auto) 4.0 /HPF (0.0-6.0) 11/02/17 16:48 U Epithel Cells (Auto) < 1.0 /HPF (0-13.0) 11/02/17 16:48 Urine Bacteria (Auto) 1+ /HPF (Negative) 11/02/17 16:48 Amorphous Crystals Few 11/02/17 16:48 Urine Mucus Few /HPF 11/02/17 16:48 Urine Opiates Screen Presumptive negative 11/02/17 16:48 Urine Methadone Screen Presumptive negative 11/02/17 16:48 Ur Barbiturates Screen Presumptive negative 11/02/17 16:48 Ur Phencyclidine Scrn Presumptive negative 11/02/17 16:48 Ur Amphetamines Screen Presumptive positive 11/02/17 16:48 U Benzodiazepines Scrn Presumptive negative 11/02/17 16:48 Urine Cocaine Screen Presumptive negative 11/02/17 16:48 U Marijuana (THC) Screen Presumptive negative 11/02/17 16:48 Drugs of Abuse Note Disclamer 11/02/17 16:48 Plasma/Serum Alcohol < 0.01 gm% (0-0.07) 11/02/17 15:28
[2017-11-06] MEDS: NORVASC PO SCH (11:55)
[2017-11-06] MEDS: COLACE PO SCH ×2 (11:55→23:14)
[2017-11-06] MEDS: PROTONIX PO SCH (11:56)
[2017-11-06] MEDS: TOPROL XL PO SCH ×2 (11:56→23:14)
[2017-11-06] MEDS: ZESTRIL PO SCH (11:56)
--- NOTE | 2017-11-06 12:13 | Progress Note ---
Assessment and Plan Impression: * End stage renal disease on HD * Malnutrition * Hypertension * Anemia secondary to ESRD Plan: * Hemodialysis- continue MWF schedule * UF as tolerated * s/p PEG placement and usage per GI * Note cardiology recommendation * Dose medications for renal function Subjective Date of service: 11/06/17 Principal diagnosis: Inability to swallow. S/p PEG Interval history: resting in bed today Objective - Exam Narrative Exam: General appearance: Present: no acute distress - EENT Eyes: Present: PERRL, EOM intact ENT: hearing intact, clear oral mucosa, dentition normal - Neck Neck: Present: supple, normal ROM - Respiratory Respiratory effort: normal Respiratory: bilateral: CTA - Cardiovascular Rhythm: regular Heart Sounds: Present: S1 & S2. Absent: gallop, rub - Extremities Extremities: no ischemia, No edema, Full ROM - Abdominal General gastrointestinal: soft, non-tender, non-distended, normal bowel sounds - Integumentary Integumentary: Present: clear, warm, dry - Neurologic Neurologic: CNII-XII intact, moves all extremities - Vital Signs Vital signs: Vital Signs - 12hr 11/06/17 11/06/17 11/06/17 01:19 01:23 03:19 Temperature 98.5 F 98.5 F Pulse Rate 86 86 Respiratory 18 Rate Blood Pressure 108/49 112/49 O2 Sat by Pulse 100 100 Oximetry 11/06/17 11/06/17 11/06/17 03:24 06:48 08:26 Temperature 98.7 F Pulse Rate 86 80 Respiratory 17 20 Rate Blood Pressure 112/49 152/61 O2 Sat by Pulse 100 Oximetry 11/06/17 09:04 Temperature Pulse Rate 79 Respiratory Rate Blood Pressure O2 Sat by Pulse Oximetry - Lab 11/04/17 08:27 11/04/17 08:27 Most recent lab results Calcium 8.3 mg/dL (8.4-10.2) L 11/04/17 08:27
--- NOTE | 2017-11-06 13:10 | Progress Note ---
Assessment and Plan - Patient Problems (1) Right atrial mass Current Visit: Yes Status: Acute Plan to address problem: Patient's echocardiogram demonstrates a well-circumscribed round right atrial mass measuring 1.5 cm in diameter, associated with an indwelling catheter in the right atrium. Differential diagnoses include a thrombus or vegetation. Less likely will be a right atrial myxoma. Recommendations: We will schedule [facility] imaging. Blood cultures 4. Patient is already on anticoagulation with subcutaneous heparin. Ultimately, the right atrial dialysis catheter will have to be removed. (2) Abnormal EKG Current Visit: Yes Status: Acute Plan to address problem: Patient has nonspecific, persistent inferolateral ST elevation. Continue clinical monitoring and management. Subjective Date of service: 11/06/17 Principal diagnosis: Inability to swallow. S/p PEG Interval history: Patient's echocardiogram demonstrates a well-circumscribed round right atrial mass measuring 1.5 cm in diameter, associated with an indwelling catheter in the right atrium. Objective Vital Signs Temp Pulse Resp BP BP Pulse Ox 11/06/17 09:04 79 11/06/17 08:26 98.7 F 80 20 152/61 100 11/06/17 06:48 86 112/49 11/06/17 03:24 17 11/06/17 03:19 98.5 F 86 112/49 100 11/06/17 01:23 18 11/06/17 01:19 98.5 F 86 108/49 100 11/05/17 22:55 92 H 110/52 11/05/17 22:00 94 H 11/05/17 20:38 98.2 F 91 H 20 110/52 97 11/05/17 17:20 98.2 F 87 18 141/68 100 11/05/17 17:01 98.2 F 20 141/68 - Physical Examination General: No Apparent Distress HEENT: Positive: PERRL Neck: Positive: neck supple Cardiac: Positive: Reg Rate and Rhythm Lungs: Positive: Decreased Breath Sounds Neuro: Positive: Weakness Abdomen: Positive: Soft Skin: Positive: Clear Extremities: Absent: edema - Imaging and Cardiology EKG: report reviewed
[2017-11-06] MEDS: APRESOLINE PO SCH ×3 (14:03→20:00)
[2017-11-06] MEDS: cefTRIAXone 1 GM in NACL 0.9% 20 ML IV SCH (18:55)
[2017-11-06] MEDS: HEPARIN SUB-Q SCH ×2 (18:57→23:14)
[2017-11-06] MEDS: ZOLOFT PO SCH (23:14)
[2017-11-07] MEDS: NITRO DUR TD SCH (06:46)
--- NOTE | 2017-11-07 11:29 | Progress Note ---
Assessment and Plan Impression: * End stage renal disease on HD * Malnutrition * Hypertension * Anemia secondary to ESRD * right atrial mass vs catheter related thrombus Plan: * Hemodialysis- continue MWF schedule * UF as tolerated * s/p PEG placement and usage per GI * Note cardiology recommendation--rec vascular surgery consultation if perm cath removal needed * Dose medications for renal function Subjective Date of service: 11/07/17 Principal diagnosis: Inability to swallow. S/p PEG Interval history: resting in bed today Objective - Exam Narrative Exam: General appearance: Present: no acute distress - EENT Eyes: Present: PERRL, EOM intact ENT: hearing intact, clear oral mucosa, dentition normal - Neck Neck: Present: supple, normal ROM - Respiratory Respiratory effort: normal Respiratory: bilateral: CTA - Cardiovascular Rhythm: regular Heart Sounds: Present: S1 & S2. Absent: gallop, rub - Extremities Extremities: no ischemia, No edema, Full ROM - Abdominal General gastrointestinal: soft, non-tender, non-distended, normal bowel sounds - Integumentary Integumentary: Present: clear, warm, dry - Neurologic Neurologic: CNII-XII intact, moves all extremities - Vital Signs Vital signs: Vital Signs - 12hr 11/07/17 11/07/17 11/07/17 00:20 05:19 05:21 Temperature 98.5 F 98.6 F Pulse Rate 80 82 Respiratory 18 18 Rate Blood Pressure 124/55 129/60 136/47 Blood Pressure [Left] O2 Sat by Pulse 100 100 Oximetry 11/07/17 11/07/17 11/07/17 08:29 09:38 09:45 Temperature 98.3 F 98.3 F Pulse Rate 87 90 85 Respiratory 16 18 Rate Blood Pressure 134/65 118/60 Blood Pressure 121/55 [Left] O2 Sat by Pulse 100 Oximetry 11/07/17 11/07/17 11/07/17 10:00 10:15 10:30 Temperature Pulse Rate 87 99 H 90 Respiratory Rate Blood Pressure 129/66 137/87 138/74 Blood Pressure [Left] O2 Sat by Pulse Oximetry 11/07/17 11/07/17 10:45 11:00 Temperature Pulse Rate 92 H 93 H Respiratory Rate Blood Pressure 133/69 121/65 Blood Pressure [Left] O2 Sat by Pulse Oximetry - Lab 11/04/17 08:27 11/04/17 08:27 Most recent lab results Calcium 8.3 mg/dL (8.4-10.2) L 11/04/17 08:27
[2017-11-07] MEDS: HEPARIN SUB-Q SCH ×2 (11:34→21:33)
[2017-11-07] MEDS: APRESOLINE PO SCH ×2 (11:34→21:37)
--- NOTE | 2017-11-07 13:58 | Progress Note ---
Assessment and Plan - Patient Problems (1) Right atrial mass Current Visit: Yes Status: Acute Plan to address problem: Patient's echocardiogram demonstrates a well-circumscribed round right atrial mass measuring 1.5 cm in diameter, associated with an indwelling catheter in the right atrium. Differential diagnoses include a thrombus or vegetation. Recommendations: We will schedule KATIA imaging. Blood cultures 4. Recommend aggressive sepsis workup. Patient is already on anticoagulation with subcutaneous heparin. Ultimately, the right atrial dialysis catheter will have to be removed. (2) Abnormal EKG Current Visit: Yes Status: Acute Subjective Date of service: 11/07/17 Principal diagnosis: Inability to swallow. S/p PEG Interval history: Patient's echocardiogram demonstrates a well-circumscribed round right atrial mass measuring 1.5 cm in diameter, associated with an indwelling catheter in the right atrium. Objective Vital Signs Temp Pulse Resp BP BP Pulse Ox 11/07/17 12:45 86 134/68 11/07/17 12:30 87 130/68 11/07/17 12:15 84 133/65 11/07/17 12:00 87 139/64 11/07/17 11:45 85 138/67 11/07/17 11:30 85 117/63 11/07/17 11:15 85 119/64 11/07/17 11:00 93 H 121/65 11/07/17 10:45 92 H 133/69 11/07/17 10:30 90 138/74 11/07/17 10:15 99 H 137/87 11/07/17 10:00 84 129/66 11/07/17 09:45 85 118/60 11/07/17 09:38 98.3 F 90 18 134/65 11/07/17 08:29 98.3 F 87 16 121/55 100 11/07/17 05:21 82 136/47 100 11/07/17 05:19 98.6 F 18 129/60 11/07/17 00:20 98.5 F 80 18 124/55 100 11/06/17 22:00 75 11/06/17 20:28 97.9 F 85 20 140/57 99 11/06/17 15:51 97.9 F 76 18 147/53 100 - Physical Examination General: No Apparent Distress HEENT: Positive: PERRL Neck: Positive: neck supple Cardiac: Positive: Reg Rate and Rhythm Lungs: Positive: Decreased Breath Sounds Neuro: Positive: Weakness Abdomen: Positive: Soft Skin: Positive: Clear Extremities: Absent: edema - Imaging and Cardiology EKG: report reviewed
[2017-11-07] MEDS: HEPARIN IV PRN (14:22)
--- NOTE | 2017-11-07 19:11 | Progress Note ---
Assessment and Plan Assessment and plan: CVA with aphasia. Patient reportedly aphasic 3 weeks [employer]. Continue stroke protocol. Carotid Dopplers reveal <50% stenosis. Patient unable to complete MRI because she could not hold still. Neurology following. Right atrial mass 1.5cm,?thrombus or vegetation. Cardiology recommends KATIA, Blood cultures x 4 Leukocytosis. Etiology is unknown. Improved. Continue empiric antibiotics. Diabetes mellitus type 2. Fingerstick Qac and hs ESRD on hemodialysis. Continue hemodialysis per nephrology. Hypertension. Continue antihypertensive medications. Oropharyngeal dysphagia. S/p gastrostomy placement. Tube feed for nutrition Abnormal EKG. Cardiology following. DVT prophylaxis:Heparin subcut. History Interval history: Patient seen at dialysis Unit, No fever Hospitalist Physical - Physical exam Narrative exam: GEN APPEARANCE : Not in acute distress, malnourished HEENT: Normocephalic, Atraumatic NECK : supple, no JVD LUNGS: Clear to auscultation bilaterally, no rales, no wheeze HEART: S1 and S2 regular, no murmurs, rubs or gallop ABD: Soft, non tender, non distended, normal bowel sounds EXT: No edema, no clubbing, no cyanosis, no cyanosis NEURO: Awake, non -verbal, - Constitutional Vitals: Temp Pulse Resp BP Pulse Ox 98.3 F 90 16 147/83 100 11/07/17 15:20 11/07/17 15:20 11/07/17 15:20 11/07/17 15:20 11/07/17 15:20 Results - Labs CBC & Chem 7: 11/04/17 08:27 11/04/17 08:27 Labs: Laboratory Last Values WBC 13.5 K/mm3 (4.5-11.0) H 11/04/17 08:27 RBC 3.07 M/mm3 (3.65-5.03) L 11/04/17 08:27 Hgb 8.4 gm/dl (10.1-14.3) L 11/04/17 08:27 Hct 26.5 % (30.3-42.9) L 11/04/17 08:27 MCV 86 fl (79-97) 11/04/17 08:27 MCH 27 pg (28-32) L 11/04/17 08:27 MCHC 32 % (30-34) 11/04/17 08:27 RDW 16.9 % (13.2-15.2) H 11/04/17 08:27 Plt Count 287 K/mm3 (140-440) 11/04/17 08:27 Lymph % (Auto) 7.2 % (13.4-35.0) L 11/04/17 08:27 [place] % (Auto) 6.9 % (0.0-7.3) 11/04/17 08:27 Eos % (Auto) 0.5 % (0.0-4.3) 11/04/17 08:27 Baso % (Auto) 0.4 % (0.0-1.8) 11/04/17 08: Lymph # 1.0 K/mm3 (1.2-5.4) L 11/04/17 08:27 [place] # 0.9 K/mm3 (0.0-0.8) H 11/04/17 08:27 Eos # 0.1 K/mm3 (0.0-0.4) 11/04/17 08: Baso # 0.1 K/mm3 (0.0-0.1) 11/04/17 08:27 Add Manual Diff Complete 11/02/17 15:28 Total Counted 100 11/02/17 15:28 Seg Neutrophils % 85.0 % (40.0-70.0) H 11/04/17 08:27 Seg Neuts % (Manual) 94.0 % (40.0-70.0) H 11/02/17 15:28 Band Neutrophils % 0 % 11/02/17 15:28 Lymphocytes % (Manual) 3.0 % (13.4-35.0) L 11/02/17 15:28 Reactive Lymphs % (Man) 0 % 11/02/17 15:28 Monocytes % (Manual) 3.0 % (0.0-7.3) 11/02/17 15:28 Eosinophils % (Manual) 0 % (0.0-4.3) 11/02/17 15:28 Basophils % (Manual) 0 % (0.0-1.8) 11/02/17 15:28 Metamyelocytes % 0 % 11/02/17 15:28 Myelocytes % 0 % 11/02/17 15:28 Promyelocytes % 0 % 11/02/17 15:28 Blast Cells % 0 % 11/02/17 15:28 Nucleated RBC % Not Reportable 11/02/17 15:28 Seg Neutrophils # 11.5 K/mm3 (1.8-7.7) H 11/04/17 08:27 Seg Neutrophils # Man 19.6 K/mm3 (1.8-7.7) H 11/02/17 15:28 Band Neutrophils # 0.0 K/mm3 11/02/17 15:28 Lymphocytes # (Manual) 0.6 K/mm3 (1.2-5.4) L 11/02/17 15:28 Abs React Lymphs (Man) 0.0 K/mm3 11/02/17 15:28 Monocytes # (Manual) 0.6 K/mm3 (0.0-0.8) 11/02/17 15:28 Eosinophils # (Manual) 0.0 K/mm3 (0.0-0.4) 11/02/17 15:28 Basophils # (Manual) 0.0 K/mm3 (0.0-0.1) 11/02/17 15:28 Metamyelocytes # 0.0 K/mm3 11/02/17 15:28 Myelocytes # 0.0 K/mm3 11/02/17 15:28 Promyelocytes # 0.0 K/mm3 11/02/17 15:28 Blast Cells # 0.0 K/mm3 11/02/17 15:28 WBC Morphology Not Reportable 11/02/17 15:28 Hypersegmented Neuts Not Reportable 11/02/17 15:28 Hyposegmented Neuts Not Reportable 11/02/17 15:28 Hypogranular Neuts Not Reportable 11/02/17 15:28 Smudge Cells Not Reportable 11/02/17 15:28 Toxic Granulation Not Reportable 11/02/17 15:28 Toxic Vacuolation Not Reportable 11/02/17 15:28 Dohle Bodies Not Reportable 11/02/17 15:28 Pelger-Huet Anomaly Not Reportable 11/02/17 15:28 Lupis Rods Not Reportable 11/02/17 15:28 Platelet Estimate Cons 11/02/17 15:28 Clumped Platelets Not Reportable 11/02/17 15:28 Plt Clumps, EDTA Not Reportable 11/02/17 15:28 Large Platelets Not Reportable 11/02/17 15:28 Giant Platelets Not Reportable 11/02/17 15:28 Platelet Satelliting Not Reportable 11/02/17 15:28 Plt Morphology Comment Not Reportable 11/02/17 15:28 RBC Morphology Not Reportable 11/02/17 15:28 Dimorphic RBCs Not Reportable 11/02/17 15:28 Polychromasia Not Reportable 11/02/17 15:28 Hypochromasia Few 11/02/17 15:28 Poikilocytosis Not Reportable 11/02/17 15:28 Anisocytosis 1+ 11/02/17 15:28 Microcytosis Not Reportable 11/02/17 15:28 Macrocytosis Not Reportable 11/02/17 15:28 Spherocytes Not Reportable 11/02/17 15:28 Pappenheimer Bodies Not Reportable 11/02/17 15:28 Sickle Cells Not Reportable 11/02/17 15:28 Target Cells Rare 11/02/17 15:28 Tear Drop Cells Not Reportable 11/02/17 15:28 Ovalocytes Not Reportable 11/02/17 15:28 Helmet Cells Not Reportable 11/02/17 15:28 [place] Bodies Not Reportable 11/02/17 15:28 [place] Rings Not Reportable 11/02/17 15:28 [place] Cells Not Reportable 11/02/17 15:28 Bite Cells Not Reportable 11/02/17 15:28 Crenated Cell Not Reportable 11/02/17 15:28 Elliptocytes Not Reportable 11/02/17 15:28 Acanthocytes (Spur) Not Reportable 11/02/17 15:28 Rouleaux Not Reportable 11/02/17 15:28 Hemoglobin C Crystals Not Reportable 11/02/17 15:28 Schistocytes Not Reportable 11/02/17 15:28 Malaria parasites Not Reportable 11/02/17 15:28 Tre Bodies Not Reportable 11/02/17 15:28 Hem Pathologist Commnt No 11/02/17 15:28 PT 15.7 Sec. (12.2-14.9) H 11/04/17 08:27 INR 1.19 (0.87-1.13) H 11/04/17 08:27 APTT 30.7 Sec. (24.2-36.6) 11/04/17 08:27 Sodium 139 mmol/L (137-145) 11/04/17 08:27 Potassium 3.9 mmol/L (3.6-5.0) 11/04/17 08:27 Chloride 97.4 mmol/L (98-107) L 11/04/17 08:27 Carbon Dioxide 24 mmol/L (22-30) 11/04/17 08:27 Anion Gap 22 mmol/L 11/04/17 08:27 BUN 48 mg/dL (7-17) H 11/04/17 08:27 Creatinine 5.4 mg/dL (0.7-1.2) H 11/04/17 08:27 Estimated GFR 10 ml/min 11/04/17 08:27 BUN/Creatinine Ratio 9 % 11/04/17 08:27 Glucose 77 mg/dL (65-100) 11/04/17 08:27 POC Glucose 168 (70-105) H 11/07/17 15:28 Hemoglobin A1c 5.2 % (4-6) 11/02/17 21:10 Calcium 8.3 mg/dL (8.4-10.2) L 11/04/17 08:27 Total Bilirubin 0.30 mg/dL (0.1-1.2) 11/03/17 04:08 AST 15 units/L (5-40) 11/03/17 04:08 ALT 11 units/L (7-56) 11/03/17 04:08 Alkaline Phosphatase 106 units/L (35-129) 11/03/17 04:08 Ammonia 24.0 umol/L (25-60) L 11/02/17 16:15 Total Creatine Kinase 45 units/L (30-135) 11/03/17 12:49 CK-MB (CK-2) 1.5 ng/mL (0.0-4.0) 11/03/17 12:49 CK-MB (CK-2) Rel Index 3.3 (0-4) 11/03/17 12:49 Troponin T 0.101 ng/mL (0.00-0.029) H* 11/03/17 12:49 Total Protein 7.1 g/dL (6.3-8.2) 11/03/17 04:08 Albumin 2.1 g/dL (3.9-5) L 11/03/17 04:08 Albumin/Globulin Ratio 0.4 % 11/03/17 04:08 Triglycerides 112 mg/dL (2-149) 11/03/17 12:49 Cholesterol 71 mg/dL (50-199) 11/03/17 12:49 LDL Cholesterol Direct 41 mg/dL (50-130) L 11/03/17 12:49 HDL Cholesterol 8 mg/dL (40-59) L 11/03/17 12:49 Cholesterol/HDL Ratio 8.87 % 11/03/17 12:49 TSH 0.357 mlU/mL (0.270-4.200) 11/02/17 15:28 Urine Color [place] (Yellow) 11/02/17 16:48 Urine Turbidity Clear (Clear) 11/02/17 16:48 Urine pH 5.0 (5.0-7.0) 11/02/17 16:48 Ur Specific [place] 1.024 (1.003-1.030) 11/02/17 16:48 Urine Protein >500 mg/dL (Negative) 11/02/17 16:48 Urine Glucose (UA) Neg mg/dL (Negative) 11/02/17 16:48 Urine Ketones Tr mg/dL (Negative) 11/02/17 16:48 Urine Blood Sm (Negative) 11/02/17 16:48 Urine Nitrite Neg (Negative) 11/02/17 16:48 Urine Bilirubin Sm (Negative) 11/02/17 16:48 Urine Ictotest Negative (Negative) 11/02/17 16:48 Urine Urobilinogen 2.0 mg/dL (<2.0) 11/02/17 16:48 Ur Leukocyte Esterase Sm (Negative) 11/02/17 16:48 Urine WBC (Auto) 6.0 /HPF (0.0-6.0) 11/02/17 16:48 Urine RBC (Auto) 4.0 /HPF (0.0-6.0) 11/02/17 16:48 U Epithel Cells (Auto) < 1.0 /HPF (0-13.0) 11/02/17 16:48 Urine Bacteria (Auto) 1+ /HPF (Negative) 11/02/17 16:48 Amorphous Crystals Few 11/02/17 16:48 Urine Mucus Few /HPF 11/02/17 16:48 Urine Opiates Screen Presumptive negative 11/02/17 16:48 Urine Methadone Screen Presumptive negative 11/02/17 16:48 Ur Barbiturates Screen Presumptive negative 11/02/17 16:48 Ur Phencyclidine Scrn Presumptive negative 11/02/17 16:48 Ur Amphetamines Screen Presumptive positive 11/02/17 16:48 U Benzodiazepines Scrn Presumptive negative 11/02/17 16:48 Urine Cocaine Screen Presumptive negative 11/02/17 16:48 U Marijuana (THC) Screen Presumptive negative 11/02/17 16:48 Drugs of Abuse Note Disclamer 11/02/17 16:48 Plasma/Serum Alcohol < 0.01 gm% (0-0.07) 11/02/17 15:28
[2017-11-07] MEDS: COLACE PO SCH (21:34)
[2017-11-07] MEDS: ZOLOFT PO SCH (21:36)
[2017-11-07] MEDS: TOPROL XL PO SCH (21:37)
[2017-11-08] MEDS: NITRO DUR TD SCH (06:36)
[2017-11-08] MEDS: APRESOLINE PO SCH ×4 (08:00→20:42)
[2017-11-08 08:28] LABS: Basophils # (Auto) 0.1 K/mm3 (0.0-0.1); Basophils % (Auto) 0.5 % (0.0-1.8); Eosinophils # (Auto) 0.1 K/mm3 (0.0-0.4); Eosinophils % (Auto) 0.4 % (0.0-4.3); Hematocrit 25.1 % (30.3-42.9); Hemoglobin 7.9 gm/dl (10.1-14.3); Lymphocytes # (Auto) 1.3 K/mm3 (1.2-5.4); Lymphocytes % (Auto) 8.9 % (13.4-35.0); Mean Corpuscular HGB Conc 32 % (30-34); Mean Corpuscular Hemoglobin 28 pg (28-32); Mean Corpuscular Volume 88 fl (79-97); Monocytes # (Auto) 0.9 K/mm3 (0.0-0.8); Monocytes % (Auto) 6.5 % (0.0-7.3); Platelet Count 257 K/mm3 (140-440); Red Blood Count 2.86 M/mm3 (3.65-5.03); Red Cell Distribution Width 17.3 % (13.2-15.2)
[2017-11-08 08:48] LABS: Calcium 8.1 mg/dL (8.4-10.2)
--- NOTE | 2017-11-08 09:14 | Progress Note ---
Assessment and Plan Impression: * End stage renal disease on HD * Malnutrition * Hypertension * Anemia secondary to ESRD * Right atrial mass vs catheter related thrombus Plan: * Hemodialysis- continue MWF schedule * UF as tolerated * s/p PEG placement and usage per GI * Note cardiology recommendation--rec vascular surgery consultation if perm cath removal needed * Await blood cx * Dose medications for renal function Subjective Date of service: 11/08/17 Principal diagnosis: Inability to swallow. S/p PEG Interval history: No acute events overnight. Objective - Vital Signs Vital signs: Vital Signs - 12hr 11/07/17 11/08/17 11/08/17 21:37 00:35 04:24 Temperature 98.0 F Pulse Rate 92 H 84 84 Respiratory 22 Rate Blood Pressure 107/51 Blood Pressure 118/54 [Left] O2 Sat by Pulse 100 Oximetry 11/08/17 11/08/17 04:41 06:36 Temperature 98.0 F Pulse Rate 84 Respiratory 22 Rate Blood Pressure 120/49 120/49 Blood Pressure [Left] O2 Sat by Pulse Oximetry - General Appearance General appearance: frail EENT: ATNC Respiratory: Present: Clear to Ascultation Cardiology: regular, S1S2 Gastrointestinal: normal, no tenderness, no distended Neurologic: other (alert, nonverbal) Musculoskeletal: other (no edema) Psychiatric: other (noverbal) - Lab 11/08/17 07:55 11/08/17 07:55 Most recent lab results Calcium 8.1 mg/dL (8.4-10.2) L 11/08/17 07:55
--- NOTE | 2017-11-08 11:09 | Progress Note ---
Assessment and Plan ESRD on HD Malnutrition s/p PEG placement Abnormal ECG Leukocytosis Anemia Hypertension Echocardiogram done this admission demonstrates a well-circumscribed round right atrial mass measuring 1.5 cm in diameter, associated with an indwelling catheter in the right atrium. Differential diagnoses include a thrombus or vegetation. Recommendations: Blood cultures pending. We will schedule KATIA for tomorrow morning. Anticoagulation with heparin. Vascular evaluation for right atrial dialysis catheter removal. Subjective Date of service: 11/08/17 Principal diagnosis: Inability to swallow. S/p PEG Objective Vital Signs Temp Pulse Resp BP BP Pulse Ox 11/08/17 06:36 84 120/49 11/08/17 04:41 98.0 F 22 120/49 11/08/17 04:24 84 11/08/17 00:35 98.0 F 84 22 118/54 100 11/07/17 21:37 92 H 107/51 11/07/17 20:55 99.1 F 92 H 220 H 107/57 100 11/07/17 20:54 99.1 F 20 107/57 11/07/17 15:20 98.3 F 90 16 147/83 100 11/07/17 13:20 98.2 F 89 16 167/83 11/07/17 13:15 90 136/73 11/07/17 13:00 94 H 147/91 11/07/17 12:45 86 134/68 11/07/17 12:30 87 130/68 11/07/17 12:15 84 133/65 11/07/17 12:00 87 139/64 11/07/17 11:45 85 138/67 11/07/17 11:30 85 117/63 11/07/17 11:15 85 119/64 - Physical Examination General: No Apparent Distress HEENT: Positive: PERRL Neck: Positive: neck supple Neuro: Positive: Weakness Abdomen: Positive: Soft Skin: Positive: Clear Extremities: Absent: edema - Labs and Meds CBC 11/08/17 Range/Units 07:55 WBC 14.3 H (4.5-11.0) K/mm3 RBC 2.86 L (3.65-5.03) M/mm3 Hgb 7.9 L (10.1-14.3) gm/dl Hct 25.1 L (30.3-42.9) % Plt Count 257 (140-440) K/mm3 Lymph # 1.3 (1.2-5.4) K/mm3 [place] # 0.9 H (0.0-0.8) K/mm3 Eos # 0.1 (0.0-0.4) K/mm3 Baso # 0.1 (0.0-0.1) K/mm3 Comprehensive Metabolic Panel 11/08/17 Range/Units 07:55 Sodium 139 (137-145) mmol/L Potassium 3.8 (3.6-5.0) mmol/L Chloride 98.8 (98-107) mmol/L Carbon Dioxide 28 (22-30) mmol/L BUN 27 H (7-17) mg/dL Creatinine 2.9 H (0.7-1.2) mg/dL Glucose 217 H (65-100) mg/dL Calcium 8.1 L (8.4-10.2) mg/dL - Imaging and Cardiology EKG: report reviewed
[2017-11-08] MEDS: NORVASC PO SCH ×2 (11:50→15:03)
[2017-11-08] MEDS: TOPROL XL PO SCH ×3 (11:50→23:06)
[2017-11-08] MEDS: COLACE PO SCH ×3 (11:50→22:56)
[2017-11-08] MEDS: PROTONIX PO SCH ×2 (11:50→14:58)
[2017-11-08] MEDS: ZESTRIL PO SCH ×2 (11:50→15:03)
[2017-11-08] MEDS: cefTRIAXone 1 GM in NACL 0.9% 20 ML IV SCH ×2 (12:00→14:57)
--- NOTE | 2017-11-08 12:47 | Progress Note ---
Assessment and Plan Assessment and plan: CVA with aphasia. Patient reportedly aphasic 3 weeks [employer]. Continue stroke protocol. Carotid Dopplers reveal <50% stenosis. Patient unable to complete MRI because she could not hold still. Neurology following. Right atrial mass 1.5cm,?thrombus or vegetation. Cardiology recommends KATIA to be done tomorrow. I discussed with cardiology, recommends heparin drip. I also discussed with Dr. Randolph, ID Physician, and she recommends second set blood ciultures to be drawn 48hrs after first set. May need removal of dialysis catheter. Leukocytosis. WBC 14.3. Continue empiric antibiotics. Diabetes mellitus type 2. Fingerstick Qac and hs ESRD on hemodialysis. Continue hemodialysis per nephrology. Hypertension. Continue antihypertensive medications. Oropharyngeal dysphagia. S/p gastrostomy placement. Tube feed for nutrition Abnormal EKG. Cardiology following. DVT prophylaxis:Heparin subcut. History Interval history: patient with right atrial mass No fever, Hospitalist Physical - Physical exam Narrative exam: GEN APPEARANCE : Not in acute distress, malnourished HEENT: Normocephalic, Atraumatic NECK : supple, no JVD LUNGS: Clear to auscultation bilaterally, no rales, no wheeze HEART: S1 and S2 regular, no murmurs, rubs or gallop ABD: Soft, non tender, non distended, normal bowel sounds EXT: No edema, no clubbing, no cyanosis, no cyanosis NEURO: Awake, non -verbal, - Constitutional Vitals: Temp Pulse Resp BP Pulse Ox 98.0 F 84 22 120/49 100 11/08/17 04:41 11/08/17 06:36 11/08/17 04:41 11/08/17 06:36 11/08/17 00:35 General appearance: Present: no acute distress Results - Labs CBC & Chem 7: 11/08/17 13:41 11/08/17 07:55 Labs: Laboratory Last Values WBC 14.3 K/mm3 (4.5-11.0) H 11/08/17 07:55 RBC 2.86 M/mm3 (3.65-5.03) L 11/08/17 07:55 Hgb 7.9 gm/dl (10.1-14.3) L 11/08/17 07:55 Hct 25.1 % (30.3-42.9) L 11/08/17 07:55 MCV 88 fl (79-97) 11/08/17 07:55 MCH 28 pg (28-32) 11/08/17 07:55 MCHC 32 % (30-34) 11/08/17 07:55 RDW 17.3 % (13.2-15.2) H 11/08/17 07:55 Plt Count 257 K/mm3 (140-440) 11/08/17 07:55 Lymph % (Auto) 8.9 % (13.4-35.0) L 11/08/17 07:55 [place] % (Auto) 6.5 % (0.0-7.3) 11/08/17 07:55 Eos % (Auto) 0.4 % (0.0-4.3) 11/08/17 07:55 Baso % (Auto) 0.5 % (0.0-1.8) 11/08/17 07:55 Lymph # 1.3 K/mm3 (1.2-5.4) 11/08/17 07:55 [place] # 0.9 K/mm3 (0.0-0.8) H 11/08/17 07:55 Eos # 0.1 K/mm3 (0.0-0.4) 11/08/17 07:55 Baso # 0.1 K/mm3 (0.0-0.1) 11/08/17 07:55 Add Manual Diff Complete 11/02/17 15:28 Total Counted 100 11/02/17 15:28 Seg Neutrophils % 83.7 % (40.0-70.0) H 11/08/17 07:55 Seg Neuts % (Manual) 94.0 % (40.0-70.0) H 11/02/17 15:28 Band Neutrophils % 0 % 11/02/17 15:28 Lymphocytes % (Manual) 3.0 % (13.4-35.0) L 11/02/17 15:28 Reactive Lymphs % (Man) 0 % 11/02/17 15:28 Monocytes % (Manual) 3.0 % (0.0-7.3) 11/02/17 15:28 Eosinophils % (Manual) 0 % (0.0-4.3) 11/02/17 15:28 Basophils % (Manual) 0 % (0.0-1.8) 11/02/17 15:28 Metamyelocytes % 0 % 11/02/17 15:28 Myelocytes % 0 % 11/02/17 15:28 Promyelocytes % 0 % 11/02/17 15:28 Blast Cells % 0 % 11/02/17 15:28 Nucleated RBC % Not Reportable 11/02/17 15:28 Seg Neutrophils # 12.0 K/mm3 (1.8-7.7) H 11/08/17 07:55 Seg Neutrophils # Man 19.6 K/mm3 (1.8-7.7) H 11/02/17 15:28 Band Neutrophils # 0.0 K/mm3 11/02/17 15:28 Lymphocytes # (Manual) 0.6 K/mm3 (1.2-5.4) L 11/02/17 15:28 Abs React Lymphs (Man) 0.0 K/mm3 11/02/17 15:28 Monocytes # (Manual) 0.6 K/mm3 (0.0-0.8) 11/02/17 15:28 Eosinophils # (Manual) 0.0 K/mm3 (0.0-0.4) 11/02/17 15:28 Basophils # (Manual) 0.0 K/mm3 (0.0-0.1) 11/02/17 15:28 Metamyelocytes # 0.0 K/mm3 11/02/17 15:28 Myelocytes # 0.0 K/mm3 11/02/17 15:28 Promyelocytes # 0.0 K/mm3 11/02/17 15:28 Blast Cells # 0.0 K/mm3 11/02/17 15:28 WBC Morphology Not Reportable 11/02/17 15:28 Hypersegmented Neuts Not Reportable 11/02/17 15:28 Hyposegmented Neuts Not Reportable 11/02/17 15:28 Hypogranular Neuts Not Reportable 11/02/17 15:28 Smudge Cells Not Reportable 11/02/17 15:28 Toxic Granulation Not Reportable 11/02/17 15:28 Toxic Vacuolation Not Reportable 11/02/17 15:28 Dohle Bodies Not Reportable 11/02/17 15:28 Pelger-Huet Anomaly Not Reportable 11/02/17 15:28 Lupis Rods Not Reportable 11/02/17 15:28 Platelet Estimate Cons 11/02/17 15:28 Clumped Platelets Not Reportable 11/02/17 15:28 Plt Clumps, EDTA Not Reportable 11/02/17 15:28 Large Platelets Not Reportable 11/02/17 15:28 Giant Platelets Not Reportable 11/02/17 15:28 Platelet Satelliting Not Reportable 11/02/17 15:28 Plt Morphology Comment Not Reportable 11/02/17 15:28 RBC Morphology Not Reportable 11/02/17 15:28 Dimorphic RBCs Not Reportable 11/02/17 15:28 Polychromasia Not Reportable 11/02/17 15:28 Hypochromasia Few 11/02/17 15:28 Poikilocytosis Not Reportable 11/02/17 15:28 Anisocytosis 1+ 11/02/17 15:28 Microcytosis Not Reportable 11/02/17 15:28 Macrocytosis Not Reportable 11/02/17 15:28 Spherocytes Not Reportable 11/02/17 15:28 Pappenheimer Bodies Not Reportable 11/02/17 15:28 Sickle Cells Not Reportable 11/02/17 15:28 Target Cells Rare 11/02/17 15:28 Tear Drop Cells Not Reportable 11/02/17 15:28 Ovalocytes Not Reportable 11/02/17 15:28 Helmet Cells Not Reportable 11/02/17 15:28 [place] Bodies Not Reportable 11/02/17 15:28 [place] Rings Not Reportable 11/02/17 15:28 [place] Cells Not Reportable 11/02/17 15:28 Bite Cells Not Reportable 11/02/17 15:28 Crenated Cell Not Reportable 11/02/17 15:28 Elliptocytes Not Reportable 11/02/17 15:28 Acanthocytes (Spur) Not Reportable 11/02/17 15:28 Rouleaux Not Reportable 11/02/17 15:28 Hemoglobin C Crystals Not Reportable 11/02/17 15:28 Schistocytes Not Reportable 11/02/17 15:28 Malaria parasites Not Reportable 11/02/17 15:28 Tre Bodies Not Reportable 11/02/17 15:28 Hem Pathologist Commnt No 11/02/17 15:28 PT 15.7 Sec. (12.2-14.9) H 11/04/17 08:27 INR 1.19 (0.87-1.13) H 11/04/17 08:27 APTT 30.7 Sec. (24.2-36.6) 11/04/17 08:27 Sodium 139 mmol/L (137-145) 11/08/17 07:55 Potassium 3.8 mmol/L (3.6-5.0) 11/08/17 07:55 Chloride 98.8 mmol/L (98-107) 11/08/17 07:55 Carbon Dioxide 28 mmol/L (22-30) 11/08/17 07:55 Anion Gap 16 mmol/L 11/08/17 07:55 BUN 27 mg/dL (7-17) H 11/08/17 07:55 Creatinine 2.9 mg/dL (0.7-1.2) H 11/08/17 07:55 Estimated GFR 20 ml/min 11/08/17 07:55 BUN/Creatinine Ratio 9 % 11/08/17 07:55 Glucose 217 mg/dL (65-100) H 11/08/17 07:55 POC Glucose 224 (70-105) H 11/08/17 08:35 Hemoglobin A1c 5.2 % (4-6) 11/02/17 21:10 Calcium 8.1 mg/dL (8.4-10.2) L 11/08/17 07:55 Total Bilirubin 0.30 mg/dL (0.1-1.2) 11/03/17 04:08 AST 15 units/L (5-40) 11/03/17 04:08 ALT 11 units/L (7-56) 11/03/17 04:08 Alkaline Phosphatase 106 units/L (35-129) 11/03/17 04:08 Ammonia 24.0 umol/L (25-60) L 11/02/17 16:15 Total Creatine Kinase 45 units/L (30-135) 11/03/17 12:49 CK-MB (CK-2) 1.5 ng/mL (0.0-4.0) 11/03/17 12:49 CK-MB (CK-2) Rel Index 3.3 (0-4) 11/03/17 12:49 Troponin T 0.101 ng/mL (0.00-0.029) H* 11/03/17 12:49 Total Protein 7.1 g/dL (6.3-8.2) 11/03/17 04:08 Albumin 2.1 g/dL (3.9-5) L 11/03/17 04:08 Albumin/Globulin Ratio 0.4 % 11/03/17 04:08 Triglycerides 112 mg/dL (2-149) 11/03/17 12:49 Cholesterol 71 mg/dL (50-199) 11/03/17 12:49 LDL Cholesterol Direct 41 mg/dL (50-130) L 11/03/17 12:49 HDL Cholesterol 8 mg/dL (40-59) L 11/03/17 12:49 Cholesterol/HDL Ratio 8.87 % 11/03/17 12:49 TSH 0.357 mlU/mL (0.270-4.200) 11/02/17 15:28 Urine Color Lyssa (Yellow) 11/02/17 16:48 Urine Turbidity Clear (Clear) 11/02/17 16:48 Urine pH 5.0 (5.0-7.0) 11/02/17 16:48 Ur Specific Morgan 1.024 (1.003-1.030) 11/02/17 16:48 Urine Protein >500 mg/dL (Negative) 11/02/17 16:48 Urine Glucose (UA) Neg mg/dL (Negative) 11/02/17 16:48 Urine Ketones Tr mg/dL (Negative) 11/02/17 16:48 Urine Blood Sm (Negative) 11/02/17 16:48 Urine Nitrite Neg (Negative) 11/02/17 16:48 Urine Bilirubin Sm (Negative) 11/02/17 16:48 Urine Ictotest Negative (Negative) 11/02/17 16:48 Urine Urobilinogen 2.0 mg/dL (<2.0) 11/02/17 16:48 Ur Leukocyte Esterase Sm (Negative) 11/02/17 16:48 Urine WBC (Auto) 6.0 /HPF (0.0-6.0) 11/02/17 16:48 Urine RBC (Auto) 4.0 /HPF (0.0-6.0) 11/02/17 16:48 U Epithel Cells (Auto) < 1.0 /HPF (0-13.0) 11/02/17 16:48 Urine Bacteria (Auto) 1+ /HPF (Negative) 11/02/17 16:48 Amorphous Crystals Few 11/02/17 16:48 Urine Mucus Few /HPF 11/02/17 16:48 Urine Opiates Screen Presumptive negative 11/02/17 16:48 Urine Methadone Screen Presumptive negative 11/02/17 16:48 Ur Barbiturates Screen Presumptive negative 11/02/17 16:48 Ur Phencyclidine Scrn Presumptive negative 11/02/17 16:48 Ur Amphetamines Screen Presumptive positive 11/02/17 16:48 U Benzodiazepines Scrn Presumptive negative 11/02/17 16:48 Urine Cocaine Screen Presumptive negative 11/02/17 16:48 U Marijuana (THC) Screen Presumptive negative 11/02/17 16:48 Drugs of Abuse Note Disclamer 11/02/17 16:48 Plasma/Serum Alcohol < 0.01 gm% (0-0.07) 11/02/17 15:28
[2017-11-08 14:44] LABS: Hematocrit 25.3 % (30.3-42.9); Hemoglobin 7.7 gm/dl (10.1-14.3)
[2017-11-08 14:48] LABS: INR 1.05 (0.87-1.13)
[2017-11-08 14:49] LABS: Partial Thromboplastin Time 28.1 Sec. (24.2-36.6)
[2017-11-08] MEDS: HEPARIN SUB-Q SCH (15:10)
--- NOTE | 2017-11-08 15:17 | Consultation ---
History of Present Illness - Reason for Consult Consult date: 11/08/17 cardiac thrombus - History of Present Illness Patient is a 67 year. I'll with history of end-stage renal disease on hemodialysis through a right chest wall tunneled hemodialysis catheter. On echocardiogram, the patient was noted to have a 1-1/2-2 cm thrombus versus vegetation at the tip of the catheter. The patient is nonverbal and minimally comprehensive. Past History Past Medical History: COPD, diabetes, ESRD (on HD), heart failure, hypertension , PVD, stroke Past Surgical History: Other (previous PEG, left AKA) Social history: other (long-term resident) Family history: hypertension Medications and Allergies Allergies Allergy/AdvReac Type Severity Reaction Status Date / Time guaifenesin [From Robitussin] Allergy Unknown Verified 04/19/17 21:22 Home Medications Medication Instructions Recorded Confirmed Last Taken Type Acetaminophen [Acetaminophen ER 650 mg PO Q8HR PRN 04/13/17 11/03/17 Unknown History TAB] Magnesium Hydroxide [Milk of 30 ml PO Q72HR PRN 04/13/17 11/03/17 Unknown History Magnesia] cloNIDine [Clonidine] 1 each TD QWEEK 04/13/17 11/03/17 Unknown History traMADol [Ultram 50 MG tab] 50 mg PO Q8H PRN 04/13/17 11/03/17 Unknown History Aspirin EC [Ecotrin] 325 mg PO DAILY 08/22/17 11/03/17 Unknown History Docusate Sodium [Colace CAP] 100 mg PO BID 08/22/17 11/03/17 Unknown History Ranitidine HCl [Zantac 300 MG TAB] 300 mg PO BID 08/22/17 11/03/17 Unknown History Sennosides [Vegetable Laxative] 17.2 mg PO HS 08/22/17 11/03/17 Unknown History ALBUTEROL NEB's [Proventil 0.083% 2.5 mg IH Q4HRT PRN #50 nebu 09/02/17 Unknown Rx NEBS] AtorvaSTATin [Lipitor] 40 mg PO QHS #30 tablet 09/02/17 11/03/17 Unknown Rx Hydrochlorothiazide [HCTZ] 25 mg PO QAM #30 tablet 09/02/17 11/03/17 Unknown Rx Lisinopril [Zestril] 40 mg PO QAM #30 tablet 09/02/17 11/03/17 Unknown Rx Metoprolol Xl [Metoprolol 50 mg PO BID #60 tablet 09/02/17 11/03/17 Unknown Rx SUCCINATE ER TAB] Pantoprazole [Protonix TAB] 40 mg PO QAM #30 tablet 09/02/17 11/03/17 Unknown Rx Sertraline [Zoloft] 50 mg PO HS #30 tablet 09/02/17 11/03/17 Unknown Rx Tamsulosin [Flomax] 0.4 mg PO QAM #30 capsule 09/02/17 11/03/17 Unknown Rx amLODIPine [Norvasc] 10 mg PO QAM #30 tablet 09/02/17 11/03/17 Unknown Rx oxyCODONE /ACETAMINOPHEN [Percocet 1 tab PO Q6H PRN #30 tablet 09/02/17 Unknown Rx 5/325 mg] Hydralazine HCl 50 mg PO TID #90 tablet 09/28/17 11/03/17 Unknown Rx Active Meds: Active Medications Acetaminophen (Tylenol) 650 mg PO Q4H PRN PRN Reason: Pain MILD(1-3)/Fever >100.5/GUO Albuterol (Proventil) 2.5 mg IH Q4HRT PRN PRN Reason: Shortness Of Breath Amlodipine Besylate (Norvasc) 10 mg PO QAM [facility] Last Admin: 11/08/17 15:03 Dose: Not Given Lipase/Protease/Amylase (Pancreaze Dr 10,500 Unit) 1 each FEEDTUBE PRN PRN PRN Reason: For Clogged Feeding Tube Atorvastatin Calcium (Lipitor) 40 mg PO QHS [facility] Last Admin: 11/07/17 21:36 Dose: 40 mg Bisacodyl (Dulcolax) 10 mg [place] QDAY PRN PRN Reason: Constipation unrelieved by MOM Clonidine HCl (Catapres-Tts Patch) 0.3 mg TD Th [facility] Last Admin: 11/03/17 09:12 Dose: 0.3 mg Docusate Sodium (Colace) 100 mg PO BID [facility] Last Admin: 11/08/17 14:57 Dose: Not Given Epoetin Philip (Epogen) 20,000 unit IV CHERELLE PRN PRN Reason: hemodialysis Last Admin: 11/04/17 13:35 Dose: 20,000 unit Heparin Sodium (Porcine) (Heparin) 5,000 unit IV CHERELLE PRN PRN Reason: hemodialysis Last Admin: 11/07/17 14:22 Dose: 5,000 unit Hydralazine HCl (Apresoline) 50 mg PO TID [facility] Last Admin: 11/08/17 14:59 Dose: Not Given Dextrose/Sodium Chloride (D5ns) 1,000 mls @ 75 mls/hr IV DIRECT [facility] Ceftriaxone Sodium 1 gm/ (Sodium Chloride) 20 mls @ 20 mls/10 min IV Q24HR [facility] PRN Reason: Protocol Last Admin: 11/08/17 14:57 Dose: Not Given Sodium Chloride (Nacl 0.9%) 100 mls @ 999 mls/hr IV CHERELLE PRN PRN Reason: Hypotension Sodium Chloride (Nacl 0.9% 1000 Ml) 1,000 mls @ 50 mls/hr IV DIRECT [facility] Heparin Sodium/Sodium Chloride (Heparin/ 0.45% Nacl-25,000 Unit/500 Ml) 25,000 unit in 500 mls @ 15 mls/hr IV TITR REYES; 750 UNITS/HR PRN Reason: Protocol Lisinopril (Zestril) 40 mg PO QAM [facility] Last Admin: 11/08/17 15:03 Dose: Not Given Magnesium Hydroxide (Milk Of Magnesia) 30 ml PO Q4H PRN PRN Reason: Constipation Metoprolol Succinate (Toprol Xl) 50 mg PO BID [facility] Last Admin: 11/08/17 15:03 Dose: Not Given Morphine Sulfate (Morphine) 2 mg IV Q4H PRN PRN Reason: Pain, Moderate (4-6) Nitroglycerin (Nitro Dur) 0.4 mg TD QDAY@0600 [facility] Last Admin: 11/08/17 06:36 Dose: 0.4 mg Ondansetron HCl (Zofran) 4 mg IV Q8H PRN PRN Reason: N/V unrelieved by Reglan Oxycodone/Acetaminophen (Percocet 5/325) 1 tab PO Q6H PRN PRN Reason: Pain Last Admin: 11/08/17 11:50 Dose: 1 tab Pantoprazole Sodium (Protonix) 40 mg PO QAM [facility] Last Admin: 11/08/17 14:58 Dose: Not Given Sertraline HCl (Zoloft) 50 mg PO HS [facility] Last Admin: 11/07/17 21:36 Dose: 50 mg Simple Syrup (Simple Syrup) 15 ml FEEDTUBE PRN PRN PRN Reason: Hypoglycemia Simple Syrup (Simple Syrup) 30 ml FEEDTUBE PRN PRN PRN Reason: Hypoglycemia Sodium Bicarbonate (Sodium Bicarbonate) 325 mg FEEDTUBE PRN PRN PRN Reason: For Clogged Feeding Tube Sodium Chloride (Sodium Chloride Flush Syringe 10 Ml) 10 ml IV PRN PRN PRN Reason: LINE FLUSH Tramadol HCl (Ultram) 50 mg PO Q8H PRN PRN Reason: Pain Review of Systems ROS unobtainable: due to mental status Exam - Constitutional Vitals: Temp Pulse Resp BP Pulse Ox 98.0 F 84 22 120/49 100 11/08/17 04:41 11/08/17 10:00 11/08/17 04:41 11/08/17 06:36 11/08/17 00:35 General appearance: Present: no acute distress - EENT Eyes: Present: PERRL - Neck Neck: Present: supple - Respiratory Respiratory effort: normal - Abdominal General gastrointestinal: Present: deferred - Rectal Rectal Exam: deferred Results - Labs CBC & Chem 7: 11/08/17 13:41 11/08/17 07:55 Labs: Abnormal lab results 11/07/17 11/08/17 11/08/17 Range/Units 15:28 07:55 07:55 WBC 14.3 H (4.5-11.0) K/mm3 RBC 2.86 L (3.65-5.03) M/mm3 Hgb 7.9 L (10.1-14.3) gm/dl Hct 25.1 L (30.3-42.9) % RDW 17.3 H (13.2-15.2) % Lymph % (Auto) 8.9 L (13.4-35.0) % [place] # 0.9 H (0.0-0.8) K/mm3 Seg Neutrophils % 83.7 H (40.0-70.0) % Seg Neutrophils # 12.0 H (1.8-7.7) K/mm3 BUN 27 H (7-17) mg/dL Creatinine 2.9 H (0.7-1.2) mg/dL Glucose 217 H (65-100) mg/dL POC Glucose 168 H (70-105) Calcium 8.1 L (8.4-10.2) mg/dL C-Reactive Protein (0.00-1.30) mg/dL 11/08/17 11/08/17 11/08/17 Range/Units 08:35 13:41 13:41 WBC (4.5-11.0) K/mm3 RBC (3.65-5.03) M/mm3 Hgb 7.7 L (10.1-14.3) gm/dl Hct 25.3 L (30.3-42.9) % RDW (13.2-15.2) % Lymph % (Auto) (13.4-35.0) % [place] # (0.0-0.8) K/mm3 Seg Neutrophils % (40.0-70.0) % Seg Neutrophils # (1.8-7.7) K/mm3 BUN (7-17) mg/dL Creatinine (0.7-1.2) mg/dL Glucose (65-100) mg/dL POC Glucose 224 H (70-105) Calcium (8.4-10.2) mg/dL C-Reactive Protein 10.10 H (0.00-1.30) mg/dL Assessment and Plan Patient is scheduled to have a KATIA tomorrow for further evaluation of the cardiac vegetations/thrombus. Recommendations will follow
[2017-11-08] MEDS ORDERED: ATIVAN IV ONE (16:04)
[2017-11-08] MEDS ORDERED: HEPARIN IV ONE (16:17)
[2017-11-08] MEDS ORDERED: HEPARIN 10,000 UNITS/10 ML IV ONE (17:00)
[2017-11-08] MEDS: HEPARIN/ 0.45% NACL-25,000 UNIT/500 ML 25,000 UNIT/500 ML BAG IV SCH (17:14)
[2017-11-08] MEDS: ZOLOFT PO SCH (22:57)
[2017-11-09] MEDS ORDERED: HEPARIN 10,000 UNITS/10 ML IV ONE (00:48)
[2017-11-09] MEDS: NITRO DUR TD SCH (05:22)
[2017-11-09] MEDS: APRESOLINE PO SCH ×3 (08:00→20:02)
[2017-11-09] MEDS ORDERED: SUBLIMAZE IV ONE (08:19)
[2017-11-09] MEDS ORDERED: VERSED IV ONE (08:19)
[2017-11-09] MEDS ORDERED: NACL 0.9% 500 ML 500 ML ONE (08:35)
--- NOTE | 2017-11-09 08:52 | Anesthesia Consultation ---
Anesthesia Consult and Med Hx Date of service: 11/09/17 - Pulmonary Exam CTA: Yes - Cardiac Exam Cardiac Exam: RRR - Pre-Operative Health Status ASA Pre-Surgery Classification: ASA4 Proposed Anesthetic Plan: MAC - Pre-Anesthesia Comment Pre-Anesthesia Comments: Right atrial catheter tip associated mass requiring KATIA. EF 55-60% - Pulmonary Hx Smoking: Yes - Cardiovascular System Hx Hypertension: Yes - Central Nervous System CVA: Yes (quadraparesis) Hx Psychiatric Problems: No - Gastrointestinal Hx Gastroesophageal Reflux Disease: Yes (PEG tube in situ, GI bleed) - Endocrine Hx End Stage Renal Disease: Yes (Dialysis ) Hx Insulin Dependent Diabetes: Yes - Hematic Hx Anemia: Yes - Additional Comments Anesthesia Medical History Comments: Daughter has POA, telephone consent
--- NOTE | 2017-11-09 08:53 | Anesthesia Day of Surgery ---
Anesthesia Day of Surgery - Day of Surgery Patient Examined: Yes Patient H&P Reviewed: Yes Patient is NPO: Yes Beta Blockers: Yes
[2017-11-09] MEDS ORDERED: DIPRIVAN 10 MG/ML IV ONE ×2 (08:56)
[2017-11-09] MEDS ORDERED: HURRICAINE ONE 20% TOPICAL SPRAY MM NR (09:00)
--- NOTE | 2017-11-09 09:00 | Progress Note ---
Assessment and Plan - Patient Problems (1) Sepsis syndrome Current Visit: Yes Status: Acute (2) Right atrial mass Current Visit: Yes Status: Acute Plan to address problem: cardiology notes, KATIA reviewed. Suggest to get Catheter removal and monitor renal function for few days before new catheter is placed. Discusseed with (3) ESRD on hemodialysis Current Visit: Yes Status: Chronic Plan to address problem: HD-M/W/F (4) HTN (hypertension) Current Visit: Yes Status: Chronic Qualifiers: Hypertension type: essential hypertension Qualified Code(s): I10 - Essential (primary) hypertension (5) Diabetes Current Visit: No Status: Chronic Qualifiers: Diabetes mellitus type: type 2 (6) Anemia Current Visit: No Status: Chronic Qualifiers: Anemia type: unspecified type Qualified Code(s): D64.9 - Anemia, unspecified (7) CVA (cerebral vascular accident) Current Visit: No Status: Chronic (8) Mastoiditis Current Visit: Yes Status: Acute Subjective Date of service: 11/09/17 Principal diagnosis: Inability to swallow. S/p PEG Interval history: weak, denies CP or SOB Objective - Vital Signs Vital signs: Vital Signs - 12hr 11/08/17 11/08/17 11/08/17 22:25 22:58 23:06 Temperature Pulse Rate 87 87 Respiratory 18 Rate Blood Pressure 113/43 113/43 Blood Pressure [Left] O2 Sat by Pulse 100 100 Oximetry 11/09/17 11/09/17 11/09/17 01:09 04:51 05:22 Temperature 98.3 F 97.6 F Pulse Rate 78 75 76 Respiratory 22 20 Rate Blood Pressure 128/53 128/61 128/61 Blood Pressure [Left] O2 Sat by Pulse 100 100 Oximetry 11/09/17 07:48 Temperature 98.8 F Pulse Rate 74 Respiratory 20 Rate Blood Pressure Blood Pressure 125/48 [Left] O2 Sat by Pulse 100 Oximetry - General Appearance General appearance: chronically ill EENT: mucous membranes dry Neck: no JVD Respiratory: Present: Clear to Ascultation Cardiology: regular Gastrointestinal: normoactive bowel sounds Neurologic: alert and oriented x3 Musculoskeletal: other (no edema, right IJ catheter) Psychiatric: mood/affect appropriate - Lab 11/08/17 13:41 11/08/17 07:55 Most recent lab results Calcium 8.1 mg/dL (8.4-10.2) L 11/08/17 07:55
[2017-11-09] MEDS ORDERED: XYLOCAINE MPF 2% ONE (09:30)
--- NOTE | 2017-11-09 09:49 | Progress Note ---
Assessment and Plan ESRD on HD Malnutrition s/p PEG placement Abnormal ECG Leukocytosis Blood cultures 1/2 Gram positive cocci in clusters KATIA - large irregular mass with mobile components attached to the right atrial catheter tip and abutting the free wall of the right atrium. Mass is measuring 2x2 cm in greatest diameters. Mass is consistent with catheter related vegetation. The tricuspid valve is not involved Anemia Hypertension Recommendations: IV antibiotic therapy Dialysis catheter holiday is recommended Will discuss with vascular surgery Subjective Date of service: 11/09/17 Principal diagnosis: Inability to swallow. S/p PEG Interval history: Patient underwent a KATIA today without complications Objective Vital Signs Temp Pulse Resp BP BP Pulse Ox 11/09/17 07:48 98.8 F 74 20 125/48 100 11/09/17 05:22 76 128/61 11/09/17 04:51 97.6 F 75 20 128/61 100 11/09/17 01:09 98.3 F 78 22 128/53 100 11/08/17 23:06 87 113/43 11/08/17 22:58 87 113/43 100 11/08/17 22:25 18 100 11/08/17 19:17 98.0 F 74 22 116/50 100 11/08/17 19:15 75 11/08/17 16:02 98.3 F 81 20 139/68 100 11/08/17 12:30 97.7 F 79 20 135/62 100 11/08/17 10:00 84 - Physical Examination General: No Apparent Distress HEENT: Positive: PERRL Neck: Positive: neck supple Cardiac: Positive: Reg Rate and Rhythm Lungs: Positive: Normal Exam Neuro: Positive: Weakness Abdomen: Positive: Soft Skin: Positive: Clear Extremities: Absent: edema - Labs and Meds Coagulation 11/08/17 Range/Units 13:41 PT 14.2 (12.2-14.9) Sec. INR 1.05 (0.87-1.13) APTT 28.1 (24.2-36.6) Sec. CBC 11/08/17 Range/Units 13:41 Hgb 7.7 L (10.1-14.3) gm/dl Hct 25.3 L (30.3-42.9) % Plt Count 267 (140-440) K/mm3 - Imaging and Cardiology EKG: report reviewed
[2017-11-09] MEDS ORDERED: ROCEPHIN/NS 2 GM/100 ML 2 GM/100 ML BAG IV SCH (10:00)
[2017-11-09] MEDS ORDERED: NACL 0.9% 500 ML 500 ML IV SCH (10:00)
[2017-11-09] MEDS: TOPROL XL PO SCH ×2 (10:00→21:57)
[2017-11-09] MEDS: NORVASC PO SCH (10:00)
[2017-11-09] MEDS ORDERED: COLACE PO SCH (10:00)
[2017-11-09] MEDS: ZESTRIL PO SCH (10:00)
[2017-11-09] MEDS ORDERED: VANCOMYCIN/NS 1 GM/250 ML 1 GM/250 ML BAG IV ONE (12:00)
[2017-11-09] MEDS ORDERED: VANCOMYCIN PHARMACY TO DOSE IV SCH (12:00)
[2017-11-09] MEDS ORDERED: VANCOMYCIN VIAL 1,000 MG in NACL 0.9% 100 ML IV ONE (12:00)
[2017-11-09] MEDS ORDERED: ATIVAN IV ONE ×2 (13:15→16:00)
[2017-11-09] MEDS ORDERED: NACL 0.9 (PRIMING MACHINE ONLY DIALYSIS) MC ONE (13:48)
--- NOTE | 2017-11-09 14:39 | Consultation ---
History of Present Illness - Reason for Consult Consult date: 11/09/17 right atrial mass Requesting physician: PAULY RODRÍGUEZ - History of Present Illness 67-year-old female CVA, diabetes, hypertension and ESRD on HD via HD cath, admitted on 11/02/17 due to hypotensive and bradycardic while being dialyzed. She was given a 500 mL bolus. EMS found the patient to be normotensive. The patient is currently nonverbal and Daughter says its been like that for 2 weeks and also not eating any for 3 weeks. Upon admission, initial temperature was 97.6, heart rate 94, respirations 12, blood pressure 134/70. Initial white count 20.8. Hemoglobin 10. Creatinine 3.2. Urinalysis was negative. UDS +amphetamines. Chest x-ray was negative. Transthoracic echo showing a right atrium mass 1.5 cm incision with a right atrial catheter. CT of the head showed mild atrophy with mild paranasal sinus with new air-fluid mastoid air cells bilaterally. Microbiology: Blood cultures: 11/07 GPC in clusters 1 of 4 Urine cultures: Current Antimicrobials: none Previous Antimicrobials: Past History Past Medical History: COPD, diabetes, ESRD (on HD), heart failure, hypertension , PVD, stroke Past Surgical History: Other (previous PEG, left AKA) Social history: other (retirement resident) Family history: hypertension Medications and Allergies Allergies Allergy/AdvReac Type Severity Reaction Status Date / Time guaifenesin [From Robitussin] Allergy Unknown Verified 04/19/17 21:22 Home Medications Medication Instructions Recorded Confirmed Last Taken Type Acetaminophen [Acetaminophen ER 650 mg PO Q8HR PRN 04/13/17 11/03/17 Unknown History TAB] Magnesium Hydroxide [Milk of 30 ml PO Q72HR PRN 04/13/17 11/03/17 Unknown History Magnesia] cloNIDine [Clonidine] 1 each TD QWEEK 04/13/17 11/03/17 Unknown History traMADol [Ultram 50 MG tab] 50 mg PO Q8H PRN 04/13/17 11/03/17 Unknown History Aspirin EC [Ecotrin] 325 mg PO DAILY 08/22/17 11/03/17 Unknown History Docusate Sodium [Colace CAP] 100 mg PO BID 08/22/17 11/03/17 Unknown History Ranitidine HCl [Zantac 300 MG TAB] 300 mg PO BID 08/22/17 11/03/17 Unknown History Sennosides [Vegetable Laxative] 17.2 mg PO HS 08/22/17 11/03/17 Unknown History ALBUTEROL NEB's [Proventil 0.083% 2.5 mg IH Q4HRT PRN #50 nebu 09/02/17 Unknown Rx NEBS] AtorvaSTATin [Lipitor] 40 mg PO QHS #30 tablet 09/02/17 11/03/17 Unknown Rx Hydrochlorothiazide [HCTZ] 25 mg PO QAM #30 tablet 09/02/17 11/03/17 Unknown Rx Lisinopril [Zestril] 40 mg PO QAM #30 tablet 09/02/17 11/03/17 Unknown Rx Metoprolol Xl [Metoprolol 50 mg PO BID #60 tablet 09/02/17 11/03/17 Unknown Rx SUCCINATE ER TAB] Pantoprazole [Protonix TAB] 40 mg PO QAM #30 tablet 09/02/17 11/03/17 Unknown Rx Sertraline [Zoloft] 50 mg PO HS #30 tablet 09/02/17 11/03/17 Unknown Rx Tamsulosin [Flomax] 0.4 mg PO QAM #30 capsule 09/02/17 11/03/17 Unknown Rx amLODIPine [Norvasc] 10 mg PO QAM #30 tablet 09/02/17 11/03/17 Unknown Rx oxyCODONE /ACETAMINOPHEN [Percocet 1 tab PO Q6H PRN #30 tablet 09/02/17 Unknown Rx 5/325 mg] Hydralazine HCl 50 mg PO TID #90 tablet 09/28/17 11/03/17 Unknown Rx Active Meds: Active Medications Acetaminophen (Tylenol) 650 mg PO Q4H PRN PRN Reason: Pain MILD(1-3)/Fever >100.5/GUO Albuterol (Proventil) 2.5 mg IH Q4HRT PRN PRN Reason: Shortness Of Breath Amlodipine Besylate (Norvasc) 10 mg PO QAM [facility] Last Admin: 11/08/17 15:03 Dose: Not Given Lipase/Protease/Amylase (Nick Hoskins 10,500 Unit) 1 each FEEDTUBE PRN PRN PRN Reason: For Clogged Feeding Tube Atorvastatin Calcium (Lipitor) 40 mg PO QHS [facility] Last Admin: 11/08/17 22:56 Dose: 40 mg Bisacodyl (Dulcolax) 10 mg [place] QDAY PRN PRN Reason: Constipation unrelieved by MOM Clonidine HCl (Catapres-Tts Patch) 0.3 mg TD Th [facility] Last Admin: 11/03/17 09:12 Dose: 0.3 mg Docusate Sodium (Colace) 100 mg PO BID [facility] Last Admin: 11/08/17 22:56 Dose: 100 mg Epoetin Philip (Epogen) 20,000 unit IV CHERELLE PRN PRN Reason: hemodialysis Last Admin: 11/04/17 13:35 Dose: 20,000 unit Heparin Sodium (Porcine) (Heparin) 5,000 unit IV CHERELLE PRN PRN Reason: hemodialysis Last Admin: 11/07/17 14:22 Dose: 5,000 unit Hydralazine HCl (Apresoline) 50 mg PO TID [facility] Last Admin: 11/08/17 20:42 Dose: 50 mg Dextrose/Sodium Chloride (D5ns) 1,000 mls @ 75 mls/hr IV DIRECT [facility] Sodium Chloride (Nacl 0.9%) 100 mls @ 999 mls/hr IV CHERELLE PRN PRN Reason: Hypotension Sodium Chloride (Nacl 0.9% 1000 Ml) 1,000 mls @ 50 mls/hr IV DIRECT [facility] Heparin Sodium/Sodium Chloride (Heparin/ 0.45% Nacl-25,000 Unit/500 Ml) 25,000 unit in 500 mls @ 15 mls/hr IV TITR REYES; 750 UNITS/HR PRN Reason: Protocol Last Titration: 11/09/17 00:26 Dose: 900 units/hr, 18 mls/hr Sodium Chloride (Nacl 0.9% 500 Ml) 500 mls @ 50 mls/hr IV DIRECT [facility] Last Admin: 11/09/17 09:25 Dose: 50 mls/hr Ceftriaxone Sodium 2 gm/ (Sodium Chloride) 20 mls @ 20 mls/10 min IV Q24HR [facility] Lisinopril (Zestril) 40 mg PO QAM [facility] Last Admin: 11/08/17 15:03 Dose: Not Given Magnesium Hydroxide (Milk Of Magnesia) 30 ml PO Q4H PRN PRN Reason: Constipation Metoprolol Succinate (Toprol Xl) 50 mg PO BID [facility] Last Admin: 11/08/17 23:06 Dose: 50 mg Morphine Sulfate (Morphine) 2 mg IV Q4H PRN PRN Reason: Pain, Moderate (4-6) Nitroglycerin (Nitro Dur) 0.4 mg TD QDAY@0600 [facility] Last Admin: 11/09/17 05:22 Dose: 0.4 mg Ondansetron HCl (Zofran) 4 mg IV Q8H PRN PRN Reason: N/V unrelieved by Reglan Oxycodone/Acetaminophen (Percocet 5/325) 1 tab PO Q6H PRN PRN Reason: Pain Last Admin: 11/08/17 11:50 Dose: 1 tab Pantoprazole Sodium (Protonix) 40 mg PO QAM [facility] Last Admin: 11/08/17 14:58 Dose: Not Given Sertraline HCl (Zoloft) 50 mg PO HS [facility] Last Admin: 11/08/17 22:57 Dose: 50 mg Simple Syrup (Simple Syrup) 15 ml FEEDTUBE PRN PRN PRN Reason: Hypoglycemia Simple Syrup (Simple Syrup) 30 ml FEEDTUBE PRN PRN PRN Reason: Hypoglycemia Sodium Bicarbonate (Sodium Bicarbonate) 325 mg FEEDTUBE PRN PRN PRN Reason: For Clogged Feeding Tube Sodium Chloride (Sodium Chloride Flush Syringe 10 Ml) 10 ml IV PRN PRN PRN Reason: LINE FLUSH Tramadol HCl (Ultram) 50 mg PO Q8H PRN PRN Reason: Pain Vancomycin HCl (Vancomycin Pharmacy To Dose) 1 each IV PKCONSULT [facility] PRN Reason: Protocol Review of Systems ROS unobtainable: due to mental status Physical Examination - Physical Exam Narrative exam: General appearance: Alert in NAD, non verbal Eyes: anicteric sclerae, moist conjunctivae; no lid-lag; PERRLA HENT: Atraumatic; oropharynx clear with moist mucous membranes and no mucosal ulcerations/no oral thrush; normal hard and soft palate. Normal external ears. Neck: Trachea midline; supple, no thyromegaly or lymphadenopathy Lungs: mack rhonchi CV: RRR, + murmurs Abdomen: Soft, non-tender Extremities: No peripheral edema or extremity lymphadenopathy Skin: Normal temperature, turgor and texture; no rash, ulcers or subcutaneous nodules Psych:non verbal Neuro: non verbal Lines - Constitutional Vitals: Vital Signs Temp Pulse Resp BP Pulse Ox 97.7 F 82 18 140/63 100 11/09/17 10:05 11/09/17 10:05 11/09/17 10:05 11/09/17 10:05 11/09/17 10:05 Temperature -Last 24 Hours Temperature [Post-Procedure] 97.7 F Temperature 98.8 F Temperature 97.6 F Temperature 98.3 F Temperature 98.0 F Temperature 98.3 F Results - Labs CBC & Chem 7: 11/08/17 13:41 11/08/17 07:55 Labs: Abnormal lab results 11/08/17 11/08/17 11/08/17 Range/Units 12:34 13:41 13:41 Hgb 7.7 L (10.1-14.3) gm/dl Hct 25.3 L (30.3-42.9) % Heparin Anti-Xa Level (0.3-0.7) U.I./ml POC Glucose 227 H (70-105) C-Reactive Protein 10.10 H (0.00-1.30) mg/dL 11/08/17 11/08/17 11/09/17 Range/Units 16:07 23:16 00:14 Hgb (10.1-14.3) gm/dl Hct (30.3-42.9) % Heparin Anti-Xa Level < 0.10 L (0.3-0.7) U.I./ml POC Glucose 225 H 271 H (70-105) C-Reactive Protein (0.00-1.30) mg/dL 11/09/17 11/09/17 Range/Units 06:52 07:54 Hgb (10.1-14.3) gm/dl Hct (30.3-42.9) % Heparin Anti-Xa Level < 0.30 L (0.3-0.7) U.I./ml POC Glucose 147 H (70-105) C-Reactive Protein (0.00-1.30) mg/dL Assessment and Plan Assessment: 1) Sepsis: Present on admission, manifested by tachycardia, leukocytosis. Etiology most likely bacteremia. 2) GPC in clusters septicemia: source infected HD cath +/- cath associated endocarditis 3) Bilateral mastoiditis 4) Ampho abuse ?? 5) ESRD on HD 6) Previous CVA? Plan: -follow-up blood cultures, repeat blood cx today -remove HD cath -f/u KATIA -vascular eval -start vancomycin and ceftriaxone renally dosed -obtain C-reactive protein (CRP) Thank you Dr Rodríguez for your consultation, will follow up with you. Bailey Pritchett MD Infectious Diseases Specialist [facility] M [phone] O [phone]
--- NOTE | 2017-11-09 15:05 | Vascular Lab Report ---
CAROTID DUPLEX STUDY: RIGHT PSVEDV CCA PROX:608 CCA DIST:8114 ICA PROX:6718 ICA MID:6020 ICA DIST:6619 ECA: 111 VERT: 40 11 LEFT PSVEDV CCA PROX:8110 CCA DIST:[id number] ICA PROX:4416 ICA MID:4515 ICA DIST:4115 ECA: 70 VERT: 44 9 REASON FOR EXAM: Carotid artery stenosis. COMMENTS ON THE RIGHT: Doppler frequency analysis is consistent with 16 to 49 percent diameter reduction of the internal carotid artery. A small amount of calcified plaque is seen. The common carotid artery is patent. The external carotid artery is patent. The vertebral artery has antegrade flow. COMMENTS ON THE LEFT: Doppler frequency analysis is consistent with 16 to 49 percent diameter reduction of the internal carotid artery. A small amount of calcified plaque is seen. The common carotid artery is patent. An elevated velocity is seen at the distal CCA but no anatomic narrowing is seen. The external carotid artery is patent. The vertebral artery has antegrade flow. IMPRESSION: Less than 50% diameter reduction in the internal carotid arteries bilaterally. Consider repeat study in one year due to elevated velocity in left common carotid artery.
--- NOTE | 2017-11-09 15:46 | Progress Note ---
Assessment and Plan Assessment and plan: CVA with aphasia. 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 Continue stroke protocol. Carotid Dopplers reveal <50% stenosis. Patient unable to complete MRI because she could not hold still. Neurology following. 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 Seen on KATIA done today. Started on Rocephin, Vancomycin. Dialysis catheter holiday recommended by Cardiology. May need removal of dialysis catheter Leukocytosis. WBC 14.3. Continue empiric antibiotics. Diabetes mellitus type 2. Fingerstick Qac and hs ESRD on hemodialysis. Continue hemodialysis per nephrology. Hypertension. Continue antihypertensive medications. Oropharyngeal dysphagia. S/p gastrostomy placement. Tube feed for nutrition Abnormal EKG. Cardiology following. DVT prophylaxis:Heparin History Interval history: patient with right atrial mass, s/p KATIA today No fever, Hospitalist Physical - Physical exam Narrative exam: GEN APPEARANCE : Not in acute distress, malnourished HEENT: Normocephalic, Atraumatic NECK : supple, no JVD LUNGS: Clear to auscultation bilaterally, no rales, no wheeze HEART: S1 and S2 regular, no murmurs, rubs or gallop ABD: Soft, non tender, non distended, normal bowel sounds EXT: No edema, no clubbing, no cyanosis, no cyanosis NEURO: Awake, non -verbal, - Constitutional Vitals: Temp Pulse Resp BP Pulse Ox 97.7 F 81 18 143/66 100 11/09/17 10:40 11/09/17 10:40 11/09/17 10:40 11/09/17 10:40 11/09/17 10:05 Results - Labs CBC & Chem 7: 11/08/17 13:41 11/08/17 07:55 Labs: Laboratory Last Values WBC 14.3 K/mm3 (4.5-11.0) H 11/08/17 07:55 RBC 2.86 M/mm3 (3.65-5.03) L 11/08/17 07:55 Hgb 7.7 gm/dl (10.1-14.3) L 11/08/17 13:41 Hct 25.3 % (30.3-42.9) L 11/08/17 13:41 MCV 88 fl (79-97) 11/08/17 07:55 MCH 28 pg (28-32) 11/08/17 07:55 MCHC 32 % (30-34) 11/08/17 07:55 RDW 17.3 % (13.2-15.2) H 11/08/17 07:55 Plt Count 267 K/mm3 (140-440) 11/08/17 13:41 Lymph % (Auto) 8.9 % (13.4-35.0) L 11/08/17 07:55 [place] % (Auto) 6.5 % (0.0-7.3) 11/08/17 07:55 Eos % (Auto) 0.4 % (0.0-4.3) 11/08/17 07:55 Baso % (Auto) 0.5 % (0.0-1.8) 11/08/17 07:55 Lymph # 1.3 K/mm3 (1.2-5.4) 11/08/17 07:55 [place] # 0.9 K/mm3 (0.0-0.8) H 11/08/17 07:55 Eos # 0.1 K/mm3 (0.0-0.4) 11/08/17 07:55 Baso # 0.1 K/mm3 (0.0-0.1) 11/08/17 07:55 Add Manual Diff Complete 11/02/17 15:28 Total Counted 100 11/02/17 15:28 Seg Neutrophils % 83.7 % (40.0-70.0) H 11/08/17 07:55 Seg Neuts % (Manual) 94.0 % (40.0-70.0) H 11/02/17 15:28 Band Neutrophils % 0 % 11/02/17 15:28 Lymphocytes % (Manual) 3.0 % (13.4-35.0) L 11/02/17 15:28 Reactive Lymphs % (Man) 0 % 11/02/17 15:28 Monocytes % (Manual) 3.0 % (0.0-7.3) 11/02/17 15:28 Eosinophils % (Manual) 0 % (0.0-4.3) 11/02/17 15:28 Basophils % (Manual) 0 % (0.0-1.8) 11/02/17 15:28 Metamyelocytes % 0 % 11/02/17 15:28 Myelocytes % 0 % 11/02/17 15:28 Promyelocytes % 0 % 11/02/17 15:28 Blast Cells % 0 % 11/02/17 15:28 Nucleated RBC % Not Reportable 11/02/17 15:28 Seg Neutrophils # 12.0 K/mm3 (1.8-7.7) H 11/08/17 07:55 Seg Neutrophils # Man 19.6 K/mm3 (1.8-7.7) H 11/02/17 15:28 Band Neutrophils # 0.0 K/mm3 11/02/17 15:28 Lymphocytes # (Manual) 0.6 K/mm3 (1.2-5.4) L 11/02/17 15:28 Abs React Lymphs (Man) 0.0 K/mm3 11/02/17 15:28 Monocytes # (Manual) 0.6 K/mm3 (0.0-0.8) 11/02/17 15:28 Eosinophils # (Manual) 0.0 K/mm3 (0.0-0.4) 11/02/17 15:28 Basophils # (Manual) 0.0 K/mm3 (0.0-0.1) 11/02/17 15:28 Metamyelocytes # 0.0 K/mm3 11/02/17 15:28 Myelocytes # 0.0 K/mm3 11/02/17 15:28 Promyelocytes # 0.0 K/mm3 11/02/17 15:28 Blast Cells # 0.0 K/mm3 11/02/17 15:28 WBC Morphology Not Reportable 11/02/17 15:28 Hypersegmented Neuts Not Reportable 11/02/17 15:28 Hyposegmented Neuts Not Reportable 11/02/17 15:28 Hypogranular Neuts Not Reportable 11/02/17 15:28 Smudge Cells Not Reportable 11/02/17 15:28 Toxic Granulation Not Reportable 11/02/17 15:28 Toxic Vacuolation Not Reportable 11/02/17 15:28 Dohle Bodies Not Reportable 11/02/17 15:28 Pelger-Huet Anomaly Not Reportable 11/02/17 15:28 Lupis Rods Not Reportable 11/02/17 15:28 Platelet Estimate Cons 11/02/17 15:28 Clumped Platelets Not Reportable 11/02/17 15:28 Plt Clumps, EDTA Not Reportable 11/02/17 15:28 Large Platelets Not Reportable 11/02/17 15:28 Giant Platelets Not Reportable 11/02/17 15:28 Platelet Satelliting Not Reportable 11/02/17 15:28 Plt Morphology Comment Not Reportable 11/02/17 15:28 RBC Morphology Not Reportable 11/02/17 15:28 Dimorphic RBCs Not Reportable 11/02/17 15:28 Polychromasia Not Reportable 11/02/17 15:28 Hypochromasia Few 11/02/17 15:28 Poikilocytosis Not Reportable 11/02/17 15:28 Anisocytosis 1+ 11/02/17 15:28 Microcytosis Not Reportable 11/02/17 15:28 Macrocytosis Not Reportable 11/02/17 15:28 Spherocytes Not Reportable 11/02/17 15:28 Pappenheimer Bodies Not Reportable 11/02/17 15:28 Sickle Cells Not Reportable 11/02/17 15:28 Target Cells Rare 11/02/17 15:28 Tear Drop Cells Not Reportable 11/02/17 15:28 Ovalocytes Not Reportable 11/02/17 15:28 Helmet Cells Not Reportable 11/02/17 15:28 [place] Bodies Not Reportable 11/02/17 15:28 [place] Rings Not Reportable 11/02/17 15:28 [place] Cells Not Reportable 11/02/17 15:28 Bite Cells Not Reportable 11/02/17 15:28 Crenated Cell Not Reportable 11/02/17 15:28 Elliptocytes Not Reportable 11/02/17 15:28 Acanthocytes (Spur) Not Reportable 11/02/17 15:28 Rouleaux Not Reportable 11/02/17 15:28 Hemoglobin C Crystals Not Reportable 11/02/17 15:28 Schistocytes Not Reportable 11/02/17 15:28 Malaria parasites Not Reportable 11/02/17 15:28 Tre Bodies Not Reportable 11/02/17 15:28 Hem Pathologist Commnt No 11/02/17 15:28 PT 14.2 Sec. (12.2-14.9) 11/08/17 13:41 INR 1.05 (0.87-1.13) 11/08/17 13:41 APTT 28.1 Sec. (24.2-36.6) 11/08/17 13:41 Heparin Anti-Xa Level < 0.30 U.I./ml (0.3-0.7) L 11/09/17 07:54 Sodium 139 mmol/L (137-145) 11/08/17 07:55 Potassium 3.8 mmol/L (3.6-5.0) 11/08/17 07:55 Chloride 98.8 mmol/L (98-107) 11/08/17 07:55 Carbon Dioxide 28 mmol/L (22-30) 11/08/17 07:55 Anion Gap 16 mmol/L 11/08/17 07:55 BUN 27 mg/dL (7-17) H 11/08/17 07:55 Creatinine 2.9 mg/dL (0.7-1.2) H 11/08/17 07:55 Estimated GFR 20 ml/min 11/08/17 07:55 BUN/Creatinine Ratio 9 % 11/08/17 07:55 Glucose 217 mg/dL (65-100) H 11/08/17 07:55 POC Glucose 147 (70-105) H 11/09/17 06:52 Hemoglobin A1c 5.2 % (4-6) 11/02/17 21:10 Calcium 8.1 mg/dL (8.4-10.2) L 11/08/17 07:55 Total Bilirubin 0.30 mg/dL (0.1-1.2) 11/03/17 04:08 AST 15 units/L (5-40) 11/03/17 04:08 ALT 11 units/L (7-56) 11/03/17 04:08 Alkaline Phosphatase 106 units/L (35-129) 11/03/17 04:08 Ammonia 24.0 umol/L (25-60) L 11/02/17 16:15 Total Creatine Kinase 45 units/L (30-135) 11/03/17 12:49 CK-MB (CK-2) 1.5 ng/mL (0.0-4.0) 11/03/17 12:49 CK-MB (CK-2) Rel Index 3.3 (0-4) 11/03/17 12:49 Troponin T 0.101 ng/mL (0.00-0.029) H* 11/03/17 12:49 C-Reactive Protein 10.10 mg/dL (0.00-1.30) H 11/08/17 13:41 Total Protein 7.1 g/dL (6.3-8.2) 11/03/17 04:08 Albumin 2.1 g/dL (3.9-5) L 11/03/17 04:08 Albumin/Globulin Ratio 0.4 % 11/03/17 04:08 Triglycerides 112 mg/dL (2-149) 11/03/17 12:49 Cholesterol 71 mg/dL (50-199) 11/03/17 12:49 LDL Cholesterol Direct 41 mg/dL (50-130) L 11/03/17 12:49 HDL Cholesterol 8 mg/dL (40-59) L 11/03/17 12:49 Cholesterol/HDL Ratio 8.87 % 11/03/17 12:49 TSH 0.357 mlU/mL (0.270-4.200) 11/02/17 15:28 Urine Color [place] (Yellow) 11/02/17 16:48 Urine Turbidity Clear (Clear) 11/02/17 16:48 Urine pH 5.0 (5.0-7.0) 11/02/17 16:48 Ur Specific [place] 1.024 (1.003-1.030) 11/02/17 16:48 Urine Protein >500 mg/dL (Negative) 11/02/17 16:48 Urine Glucose (UA) Neg mg/dL (Negative) 11/02/17 16:48 Urine Ketones Tr mg/dL (Negative) 11/02/17 16:48 Urine Blood Sm (Negative) 11/02/17 16:48 Urine Nitrite Neg (Negative) 11/02/17 16:48 Urine Bilirubin Sm (Negative) 11/02/17 16:48 Urine Ictotest Negative (Negative) 11/02/17 16:48 Urine Urobilinogen 2.0 mg/dL (<2.0) 11/02/17 16:48 Ur Leukocyte Esterase Sm (Negative) 11/02/17 16:48 Urine WBC (Auto) 6.0 /HPF (0.0-6.0) 11/02/17 16:48 Urine RBC (Auto) 4.0 /HPF (0.0-6.0) 11/02/17 16:48 U Epithel Cells (Auto) < 1.0 /HPF (0-13.0) 11/02/17 16:48 Urine Bacteria (Auto) 1+ /HPF (Negative) 11/02/17 16:48 Amorphous Crystals Few 11/02/17 16:48 Urine Mucus Few /HPF 11/02/17 16:48 Urine Opiates Screen Presumptive negative 11/02/17 16:48 Urine Methadone Screen Presumptive negative 11/02/17 16:48 Ur Barbiturates Screen Presumptive negative 11/02/17 16:48 Ur Phencyclidine Scrn Presumptive negative 11/02/17 16:48 Ur Amphetamines Screen Presumptive positive 11/02/17 16:48 U Benzodiazepines Scrn Presumptive negative 11/02/17 16:48 Urine Cocaine Screen Presumptive negative 11/02/17 16:48 U Marijuana (THC) Screen Presumptive negative 11/02/17 16:48 Drugs of Abuse Note Disclamer 11/02/17 16:48 Plasma/Serum Alcohol < 0.01 gm% (0-0.07) 11/02/17 15:28
[2017-11-09] MEDS ORDERED: XYLOCAINE 1% 20 mL ONE (15:47)
--- NOTE | 2017-11-09 17:30 | Progress Note ---
Assessment and Plan - Patient Problems (1) Sepsis Current Visit: Yes Status: Acute Qualifiers: Sepsis type: sepsis due to unspecified organism Qualified Code(s): A41.9 - Sepsis, unspecified organism Plan to address problem: Permacath appears to be infected and will be removed. She will need a 24-48 hour catheter holiday. Plan to replace the permacatheter Vas-Cath on Tuesday. Subjective Date of service: 11/09/17 Principal diagnosis: Inability to swallow. S/p PEG Interval history: Underwent KATIA which showed large right atrial vegetation. Blood cultures are positive for staph and at least one set. She remains noncommunicative Objective - Exam Narrative Exam: Permacath site is clean without tenderness. KATIA positive for vegetation. - Constitutional Vitals: Vital Signs - 12hr 11/09/17 11/09/17 11/09/17 07:48 09:50 10:05 Temperature 98.8 F Temperature [ 97.7 F Post-Procedure] Pulse Rate 74 Pulse Rate [ 79 82 Post-Procedure] Respiratory 20 Rate Respiratory 22 18 Rate [Post- Procedure] Blood Pressure Blood Pressure 125/48 [Left] Blood Pressure 131/60 140/63 [Post-Procedure ] O2 Sat by Pulse 100 Oximetry O2 Sat by Pulse 97 100 Oximetry [Post -Procedure] 11/09/17 11/09/17 10:40 15:00 Temperature 97.7 F 97.9 F Temperature [ Post-Procedure] Pulse Rate 81 78 Pulse Rate [ Post-Procedure] Respiratory 18 16 Rate Respiratory Rate [Post- Procedure] Blood Pressure 143/66 Blood Pressure 144/65 [Left] Blood Pressure [Post-Procedure ] O2 Sat by Pulse 100 Oximetry O2 Sat by Pulse Oximetry [Post -Procedure] - Labs CBC & Chem 7: 11/08/17 13:41 11/08/17 07:55 Labs: Abnormal lab results 11/08/17 11/09/17 11/09/17 Range/Units 23:16 00:14 06:52 Heparin Anti-Xa Level < 0.10 L (0.3-0.7) U.I./ml POC Glucose 271 H 147 H (70-105) 11/09/17 Range/Units 07:54 Heparin Anti-Xa Level < 0.30 L (0.3-0.7) U.I./ml POC Glucose (70-105)
--- NOTE | 2017-11-09 17:34 | Operative Report ---
Operative Report Operative Report: Date of procedure: 11/09/2017 Pre-operative diagnosis: Infected permacath, bacteremia, end-stage renal disease Post-operative diagnosis: Same Procedure name(s): Removal of infected permacath Surgeon: Gama Munson MD Anesthesia: Local EBL: None Specimen(s): None Complications: None Findings: The cath removed in toto. Procedure: Patient in the supine position the skin overlying the Port-A-Cath exit site was prepped and draped using sterile technique. The skin surrounding the exit site was anesthetized with 1% Xylocaine. Using combination of blunt and sharp dissection through the exit site scar tissue was from the permacath. Using upward traction cuff was released from the surrounding tissue and the catheter withdrew. The exit site was closed using a Vicryl pursestring suture. Pressure was held for hemostasis. Patient tolerated the procedure well. Sterile dressing applied.
[2017-11-09] MEDS: ZOLOFT PO SCH (21:58)
[2017-11-09] MEDS: COLACE PO SCH ×2 (22:03)
[2017-11-09] MEDS: cefTRIAXone 2 GM in NACL 0.9% 20 ML IV SCH (22:57)
[2017-11-09] MEDS: PROTONIX PO SCH (23:02)
[2017-11-09] MEDS: HEPARIN/ 0.45% NACL-25,000 UNIT/500 ML 25,000 UNIT/500 ML BAG IV SCH (23:03)
[2017-11-09] MEDS: HEPARIN IV PRN (23:26)
[2017-11-10] MEDS ORDERED: HEPARIN 10,000 UNITS/10 ML IV ONE ×2 (04:30→22:33)
[2017-11-10] MEDS: NITRO DUR TD SCH (05:38)
[2017-11-10 07:12] LABS: Hemoglobin 7.5 gm/dl (10.1-14.3)
--- NOTE | 2017-11-10 08:37 | Event Note ---
Date: 11/10/17 Tentatively set patient up for permcath placement on tuesday.
[2017-11-10] MEDS: NORVASC PO SCH (09:40)
[2017-11-10] MEDS: PROTONIX PO SCH (09:41)
[2017-11-10] MEDS: APRESOLINE PO SCH ×3 (09:41→20:58)
[2017-11-10] MEDS: ZESTRIL PO SCH (09:41)
[2017-11-10] MEDS: TOPROL XL PO SCH ×2 (09:42→22:50)
--- NOTE | 2017-11-10 09:48 | Progress Note ---
Assessment and Plan - Patient Problems (1) ESRD on hemodialysis Current Visit: Yes Status: Chronic Plan to address problem: S/P permacath removal on 11/09/17. Sepsis with bacteremia/ endocarditis. Discussed with hospitalist and . Monitor off dialysis for next few days. Antibiotics per ID. Nitrition support (2) Sepsis syndrome Current Visit: Yes Status: Acute (3) Right atrial mass Current Visit: Yes Status: Acute (4) HTN (hypertension) Current Visit: Yes Status: Chronic Qualifiers: Hypertension type: essential hypertension Qualified Code(s): I10 - Essential (primary) hypertension (5) Diabetes Current Visit: No Status: Chronic Qualifiers: Diabetes mellitus type: type 2 (6) Anemia Current Visit: No Status: Chronic Qualifiers: Anemia type: unspecified type Qualified Code(s): D64.9 - Anemia, unspecified (7) CVA (cerebral vascular accident) Current Visit: No Status: Chronic (8) Mastoiditis Current Visit: Yes Status: Acute Subjective Date of service: 11/10/17 Principal diagnosis: Inability to swallow. S/p PEG Interval history: weak, not in distress, awake Objective - Vital Signs Vital signs: Vital Signs - 12hr 11/09/17 11/09/17 11/09/17 21:57 22:00 23:56 Temperature 98.9 F Pulse Rate 86 90 Respiratory 18 Rate Blood Pressure 147/74 133/60 O2 Sat by Pulse 100 99 Oximetry 11/10/17 11/10/17 11/10/17 04:43 05:38 07:53 Temperature 98.5 F 98.3 F Pulse Rate 85 85 85 Respiratory 18 18 Rate Blood Pressure 150/64 150/64 154/66 O2 Sat by Pulse 100 100 Oximetry 11/10/17 11/10/17 11/10/17 09:40 09:41 09:42 Temperature Pulse Rate 86 86 86 Respiratory Rate Blood Pressure 150/66 150/66 150/66 O2 Sat by Pulse Oximetry - General Appearance General appearance: chronically ill EENT: mucous membranes moist Neck: no JVD Respiratory: Present: Decreased Breath Sounds Cardiology: regular Gastrointestinal: normoactive bowel sounds, other (PEG) - Lab 11/10/17 06:43 11/08/17 07:55 Most recent lab results Calcium 8.1 mg/dL (8.4-10.2) L 11/08/17 07:55
[2017-11-10] MEDS: CATAPRES-TTS PATCH TD SCH (09:50)
[2017-11-10] MEDS: cefTRIAXone 2 GM in NACL 0.9% 20 ML IV SCH (10:00)
[2017-11-10] MEDS: COLACE PO SCH ×2 (10:30→22:49)
--- NOTE | 2017-11-10 10:48 | Progress Note ---
Assessment and Plan Assessment: 1) Sepsis: better. Etiology most likely bacteremia. CRP=10 2) Complicated MRSA septicemia: source infected HD cath +/- cath associated endocarditis. -KATIA + 2x2 cm mobile echo-density mass attached to cath -Perm Cath was removed on 11/09 3) Bilateral mastoiditis 4) Ampho abuse ?? 5) ESRD on HD 6) Previous CVA? Plan: -will ask cards if pt needs ?cardiothoracic eval in view of size of vegetation -ok to place new perm HD cath 72 hours after repeat blood cx negative -follow-up repeat blood cx -continue vancomycin renally dosed -stop ceftriaxone -upon discharge will do vancomycin 1 g IV 3 times a weeks after HD total 6 weeks from 11/09/17 until 12/20/[address] Rodríguez for your consultation, will follow up with you. Bailey Pritchett MD Infectious Diseases Specialist [facility] ([facility]) M [phone] O [phone] Subjective Date of service: 11/10/17 Principal diagnosis: Inability to swallow. S/p PEG Interval history: Microbiology: Blood cultures: 11/07 MRSA 2 of 4 11/09 ngtd Urine cultures: Current Antimicrobials: vanco 11/09 ceftriaxone 11/09 Previous Antimicrobials: Objective - Exam Narrative Exam: General appearance: Alert in NAD, non verbal Eyes: anicteric sclerae, moist conjunctivae; no lid-lag; PERRLA HENT: Atraumatic; oropharynx clear with moist mucous membranes and no mucosal ulcerations/no oral thrush; normal hard and soft palate. Normal external ears. Neck: Trachea midline; supple, no thyromegaly or lymphadenopathy Lungs: mack rhonchi CV: RRR, + murmurs Abdomen: Soft, non-tender Extremities: No peripheral edema or extremity lymphadenopathy Skin: Normal temperature, turgor and texture; no rash, ulcers or subcutaneous nodules Psych:non verbal Neuro: non verbal Lines - Constitutional Vitals: Vital Signs Temp Pulse Resp BP Pulse Ox 98.3 F 86 18 150/66 100 11/10/17 07:53 11/10/17 09:50 11/10/17 07:53 11/10/17 09:50 11/10/17 07:53 Temperature -Last 24 Hours Temperature 98.3 F Temperature 98.5 F Temperature 98.9 F Temperature 98.9 F Temperature 97.9 F Temperature 97.9 F Temperature 98.4 F - Labs CBC & Chem 7: 11/10/17 06:43 11/08/17 07:55 Labs: Abnormal lab results 11/09/17 11/10/17 11/10/17 Range/Units 20:41 02:05 06:43 Hgb 7.5 L (10.1-14.3) gm/dl Hct 25.0 L (30.3-42.9) % Heparin Anti-Xa Level < 0.10 L < 0.10 L (0.3-0.7) U.I./ml
--- NOTE | 2017-11-10 11:41 | Progress Note ---
Hospitalist Physical - Constitutional Vitals: Temp Pulse Resp BP Pulse Ox 98.3 F 84 18 150/66 100 11/10/17 07:53 11/10/17 10:00 11/10/17 07:53 11/10/17 09:50 11/10/17 07:53 General appearance: Present: no acute distress Results - Labs CBC & Chem 7: 11/10/17 06:43 11/08/17 07:55 Labs: Laboratory Last Values WBC 14.3 K/mm3 (4.5-11.0) H 11/08/17 07:55 RBC 2.86 M/mm3 (3.65-5.03) L 11/08/17 07:55 Hgb 7.5 gm/dl (10.1-14.3) L 11/10/17 06:43 Hct 25.0 % (30.3-42.9) L 11/10/17 06:43 MCV 88 fl (79-97) 11/08/17 07:55 MCH 28 pg (28-32) 11/08/17 07:55 MCHC 32 % (30-34) 11/08/17 07:55 RDW 17.3 % (13.2-15.2) H 11/08/17 07:55 Plt Count 295 K/mm3 (140-440) 11/10/17 06:43 Lymph % (Auto) 8.9 % (13.4-35.0) L 11/08/17 07:55 [place] % (Auto) 6.5 % (0.0-7.3) 11/08/17 07:55 Eos % (Auto) 0.4 % (0.0-4.3) 11/08/17 07:55 Baso % (Auto) 0.5 % (0.0-1.8) 11/08/17 07:55 Lymph # 1.3 K/mm3 (1.2-5.4) 11/08/17 07:55 [place] # 0.9 K/mm3 (0.0-0.8) H 11/08/17 07:55 Eos # 0.1 K/mm3 (0.0-0.4) 11/08/17 07:55 Baso # 0.1 K/mm3 (0.0-0.1) 11/08/17 07:55 Add Manual Diff Complete 11/02/17 15:28 Total Counted 100 11/02/17 15:28 Seg Neutrophils % 83.7 % (40.0-70.0) H 11/08/17 07:55 Seg Neuts % (Manual) 94.0 % (40.0-70.0) H 11/02/17 15:28 Band Neutrophils % 0 % 11/02/17 15:28 Lymphocytes % (Manual) 3.0 % (13.4-35.0) L 11/02/17 15:28 Reactive Lymphs % (Man) 0 % 11/02/17 15:28 Monocytes % (Manual) 3.0 % (0.0-7.3) 11/02/17 15:28 Eosinophils % (Manual) 0 % (0.0-4.3) 11/02/17 15:28 Basophils % (Manual) 0 % (0.0-1.8) 11/02/17 15:28 Metamyelocytes % 0 % 11/02/17 15:28 Myelocytes % 0 % 11/02/17 15:28 Promyelocytes % 0 % 11/02/17 15:28 Blast Cells % 0 % 11/02/17 15:28 Nucleated RBC % Not Reportable 11/02/17 15:28 Seg Neutrophils # 12.0 K/mm3 (1.8-7.7) H 11/08/17 07:55 Seg Neutrophils # Man 19.6 K/mm3 (1.8-7.7) H 11/02/17 15:28 Band Neutrophils # 0.0 K/mm3 11/02/17 15:28 Lymphocytes # (Manual) 0.6 K/mm3 (1.2-5.4) L 11/02/17 15:28 Abs React Lymphs (Man) 0.0 K/mm3 11/02/17 15:28 Monocytes # (Manual) 0.6 K/mm3 (0.0-0.8) 11/02/17 15:28 Eosinophils # (Manual) 0.0 K/mm3 (0.0-0.4) 11/02/17 15:28 Basophils # (Manual) 0.0 K/mm3 (0.0-0.1) 11/02/17 15:28 Metamyelocytes # 0.0 K/mm3 11/02/17 15:28 Myelocytes # 0.0 K/mm3 11/02/17 15:28 Promyelocytes # 0.0 K/mm3 11/02/17 15:28 Blast Cells # 0.0 K/mm3 11/02/17 15:28 WBC Morphology Not Reportable 11/02/17 15:28 Hypersegmented Neuts Not Reportable 11/02/17 15:28 Hyposegmented Neuts Not Reportable 11/02/17 15:28 Hypogranular Neuts Not Reportable 11/02/17 15:28 Smudge Cells Not Reportable 11/02/17 15:28 Toxic Granulation Not Reportable 11/02/17 15:28 Toxic Vacuolation Not Reportable 11/02/17 15:28 Dohle Bodies Not Reportable 11/02/17 15:28 Pelger-Huet Anomaly Not Reportable 11/02/17 15:28 Lupis Rods Not Reportable 11/02/17 15:28 Platelet Estimate Cons 11/02/17 15:28 Clumped Platelets Not Reportable 11/02/17 15:28 Plt Clumps, EDTA Not Reportable 11/02/17 15:28 Large Platelets Not Reportable 11/02/17 15:28 Giant Platelets Not Reportable 11/02/17 15:28 Platelet Satelliting Not Reportable 11/02/17 15:28 Plt Morphology Comment Not Reportable 11/02/17 15:28 RBC Morphology Not Reportable 11/02/17 15:28 Dimorphic RBCs Not Reportable 11/02/17 15:28 Polychromasia Not Reportable 11/02/17 15:28 Hypochromasia Few 11/02/17 15:28 Poikilocytosis Not Reportable 11/02/17 15:28 Anisocytosis 1+ 11/02/17 15:28 Microcytosis Not Reportable 11/02/17 15:28 Macrocytosis Not Reportable 11/02/17 15:28 Spherocytes Not Reportable 11/02/17 15:28 Pappenheimer Bodies Not Reportable 11/02/17 15:28 Sickle Cells Not Reportable 11/02/17 15:28 Target Cells Rare 11/02/17 15:28 Tear Drop Cells Not Reportable 11/02/17 15:28 Ovalocytes Not Reportable 11/02/17 15:28 Helmet Cells Not Reportable 11/02/17 15:28 [place] Bodies Not Reportable 11/02/17 15:28 [place] Rings Not Reportable 11/02/17 15:28 [place] Cells Not Reportable 11/02/17 15:28 Bite Cells Not Reportable 11/02/17 15:28 Crenated Cell Not Reportable 11/02/17 15:28 Elliptocytes Not Reportable 11/02/17 15:28 Acanthocytes (Spur) Not Reportable 11/02/17 15:28 Rouleaux Not Reportable 11/02/17 15:28 Hemoglobin C Crystals Not Reportable 11/02/17 15:28 Schistocytes Not Reportable 11/02/17 15:28 Malaria parasites Not Reportable 11/02/17 15:28 Tre Bodies Not Reportable 11/02/17 15:28 Hem Pathologist Commnt No 11/02/17 15:28 PT 14.2 Sec. (12.2-14.9) 11/08/17 13:41 INR 1.05 (0.87-1.13) 11/08/17 13:41 APTT 28.1 Sec. (24.2-36.6) 11/08/17 13:41 Heparin Anti-Xa Level < 0.10 U.I./ml (0.3-0.7) L 11/10/17 02:05 Sodium 139 mmol/L (137-145) 11/08/17 07:55 Potassium 3.8 mmol/L (3.6-5.0) 11/08/17 07:55 Chloride 98.8 mmol/L (98-107) 11/08/17 07:55 Carbon Dioxide 28 mmol/L (22-30) 11/08/17 07:55 Anion Gap 16 mmol/L 11/08/17 07:55 BUN 27 mg/dL (7-17) H 11/08/17 07:55 Creatinine 2.9 mg/dL (0.7-1.2) H 11/08/17 07:55 Estimated GFR 20 ml/min 11/08/17 07:55 BUN/Creatinine Ratio 9 % 11/08/17 07:55 Glucose 217 mg/dL (65-100) H 11/08/17 07:55 POC Glucose 147 (70-105) H 11/09/17 06:52 Hemoglobin A1c 5.2 % (4-6) 11/02/17 21:10 Calcium 8.1 mg/dL (8.4-10.2) L 11/08/17 07:55 Total Bilirubin 0.30 mg/dL (0.1-1.2) 11/03/17 04:08 AST 15 units/L (5-40) 11/03/17 04:08 ALT 11 units/L (7-56) 11/03/17 04:08 Alkaline Phosphatase 106 units/L (35-129) 11/03/17 04:08 Ammonia 24.0 umol/L (25-60) L 11/02/17 16:15 Total Creatine Kinase 45 units/L (30-135) 11/03/17 12:49 CK-MB (CK-2) 1.5 ng/mL (0.0-4.0) 11/03/17 12:49 CK-MB (CK-2) Rel Index 3.3 (0-4) 11/03/17 12:49 Troponin T 0.101 ng/mL (0.00-0.029) H* 11/03/17 12:49 C-Reactive Protein 10.10 mg/dL (0.00-1.30) H 11/08/17 13:41 Total Protein 7.1 g/dL (6.3-8.2) 11/03/17 04:08 Albumin 2.1 g/dL (3.9-5) L 11/03/17 04:08 Albumin/Globulin Ratio 0.4 % 11/03/17 04:08 Triglycerides 112 mg/dL (2-149) 11/03/17 12:49 Cholesterol 71 mg/dL (50-199) 11/03/17 12:49 LDL Cholesterol Direct 41 mg/dL (50-130) L 11/03/17 12:49 HDL Cholesterol 8 mg/dL (40-59) L 11/03/17 12:49 Cholesterol/HDL Ratio 8.87 % 11/03/17 12:49 TSH 0.357 mlU/mL (0.270-4.200) 11/02/17 15:28 Urine Color [place] (Yellow) 11/02/17 16:48 Urine Turbidity Clear (Clear) 11/02/17 16:48 Urine pH 5.0 (5.0-7.0) 11/02/17 16:48 Ur Specific [place] 1.024 (1.003-1.030) 11/02/17 16:48 Urine Protein >500 mg/dL (Negative) 11/02/17 16:48 Urine Glucose (UA) Neg mg/dL (Negative) 11/02/17 16:48 Urine Ketones Tr mg/dL (Negative) 11/02/17 16:48 Urine Blood Sm (Negative) 11/02/17 16:48 Urine Nitrite Neg (Negative) 11/02/17 16:48 Urine Bilirubin Sm (Negative) 11/02/17 16:48 Urine Ictotest Negative (Negative) 11/02/17 16:48 Urine Urobilinogen 2.0 mg/dL (<2.0) 11/02/17 16:48 Ur Leukocyte Esterase Sm (Negative) 11/02/17 16:48 Urine WBC (Auto) 6.0 /HPF (0.0-6.0) 11/02/17 16:48 Urine RBC (Auto) 4.0 /HPF (0.0-6.0) 11/02/17 16:48 U Epithel Cells (Auto) < 1.0 /HPF (0-13.0) 11/02/17 16:48 Urine Bacteria (Auto) 1+ /HPF (Negative) 11/02/17 16:48 Amorphous Crystals Few 11/02/17 16:48 Urine Mucus Few /HPF 11/02/17 16:48 Urine Opiates Screen Presumptive negative 11/02/17 16:48 Urine Methadone Screen Presumptive negative 11/02/17 16:48 Ur Barbiturates Screen Presumptive negative 11/02/17 16:48 Ur Phencyclidine Scrn Presumptive negative 11/02/17 16:48 Ur Amphetamines Screen Presumptive positive 11/02/17 16:48 U Benzodiazepines Scrn Presumptive negative 11/02/17 16:48 Urine Cocaine Screen Presumptive negative 11/02/17 16:48 U Marijuana (THC) Screen Presumptive negative 11/02/17 16:48 Drugs of Abuse Note Disclamer 11/02/17 16:48 Plasma/Serum Alcohol < 0.01 gm% (0-0.07) 11/02/17 15:28
--- NOTE | 2017-11-10 11:59 | Progress Note ---
Assessment and Plan ESRD on HD s/p removal of infected permacath Malnutrition s/p PEG placement Abnormal ECG Leukocytosis Blood cultures growing MRSA KATIA - large irregular mass with mobile components attached to the right atrial catheter tip and abutting the free wall of the right atrium. Mass is measuring 2x2 cm in greatest diameters. Mass is consistent with catheter related vegetation. The tricuspid valve is not involved. Anemia Hypertension Subjective Date of service: 11/10/17 Principal diagnosis: Inability to swallow. S/p PEG Interval history: Patient is non-verbal, resting in bed comfortably. No events on telemetry monitoring. Objective Vital Signs Temp Pulse Resp BP BP Pulse Ox 11/10/17 10:00 84 20 99 11/10/17 09:50 86 150/66 11/10/17 09:42 86 150/66 11/10/17 09:41 86 150/66 11/10/17 09:40 86 150/66 11/10/17 07:53 98.3 F 85 18 154/66 100 11/10/17 05:38 85 150/64 11/10/17 04:43 98.5 F 85 18 150/64 100 11/09/17 23:56 98.9 F 90 18 133/60 99 11/09/17 22:00 100 11/09/17 21:57 86 147/74 11/09/17 20:47 18 100 11/09/17 19:53 83 11/09/17 19:28 98.9 F 86 20 147/74 100 11/09/17 15:00 97.9 F 78 16 144/65 100 11/09/17 14:49 97.9 F 77 16 144/65 100 11/09/17 14:15 98.4 F 77 18 152/74 11/09/17 14:10 76 148/72 11/09/17 14:00 74 148/70 11/09/17 13:45 76 149/72 11/09/17 13:30 76 143/69 11/09/17 13:15 75 136/66 11/09/17 13:00 77 135/58 11/09/17 12:45 77 125/62 11/09/17 12:30 79 137/67 11/09/17 12:15 77 116/73 11/09/17 12:00 80 123/60 - Physical Examination General: No Apparent Distress HEENT: Positive: PERRL Cardiac: Positive: Reg Rate and Rhythm - Labs and Meds CBC 11/10/17 Range/Units 06:43 Hgb 7.5 L (10.1-14.3) gm/dl Hct 25.0 L (30.3-42.9) % Plt Count 295 (140-440) K/mm3 - Imaging and Cardiology EKG: report reviewed
[2017-11-10] MEDS: ZOLOFT PO SCH (22:50)
[2017-11-10] MEDS: HEPARIN/ 0.45% NACL-25,000 UNIT/500 ML 25,000 UNIT/500 ML BAG IV SCH (23:08)
[2017-11-11] MEDS: NITRO DUR TD SCH (06:04)
[2017-11-11 09:06] VITALS: BP 156/72
--- NOTE | 2017-11-11 09:44 | Progress Note ---
Subjective Principal diagnosis: Inability to swallow. S/p PEG Interval history: Patient was seen today for follow-up on multiple renal related issues Events of this hospitalization noted, she was seen along with her nurse in the room patient is encephalopathic resting comfortably in bed currently on tube feeding Vitals labs intake output medications were reviewed Social history: Reviewed Allergies: Reviewed Family history: Reviewed Physical examination HEENT: Oral mucosa moist no pallor or icterus Neck: Supple no JVD Chest: Clear to auscultation anteriorly CVS: Regular rate and rhythm S1 and S2 heard Abdomen: Soft nontender no suprapubic masses no organomegaly appreciable Extremity: Dry skin less than 1+ peripheral edema Musculoskeletal: No joint effusion noted in knees and ankle Neurological: patient appears to be encephalopathic and does not wake up when called by her name Dermatology: No petechial rashes Psychiatry: No evidence of any agitation and aggression noted Assessment and plan End-stage renal disease: Patient admitted with sepsis bacteremia endocarditis, she also appears to be encephalopathic and appears to be doing very poorly Due to bacteremia and endocarditis catheter has been removed there is no emergent indication for renal replacement therapy today Will need to monitor daily labs if needed hemodialysis can be done with Vas-Cath At this time continue to follow serial cultures maintain antibiotic therapy diabetes mellitus type 2: Very poorly controlled Possibly consider a new access on Tuesday unless until emergently indicated MRSA bacteremia transesophageal echocardiogram showed large irregular mass attached the right atrial catheter tip which has been felt to be vegetation tricuspid valve was not involved Admitted with sepsis clinically better/bilateral mastoiditis Anemia in end-stage renal disease: To monitor and follow, avoid erythropoietin with history of stroke Malnutrition risk high status post PEG tube placement Secondary hyperparathyroidism: To monitor and follow PTH and phosphorus level Patient's overall condition has been very poor she is 67-year-old with multiple comorbidities including end-stage renal disease currently admitted with endocarditis encephalopathic post PEG tube placement on tube feeding her prognosis is extremely poor in my opinion, and does not look good long-term We'll continue to follow and make recommendation from renal standpoint Objective - Vital Signs Vital signs: Vital Signs - 12hr 11/10/17 11/10/17 11/10/17 22:00 22:47 22:50 Temperature Pulse Rate 94 H Respiratory 20 Rate Blood Pressure 173/78 173/78 Blood Pressure [Left] O2 Sat by Pulse 100 Oximetry 11/11/17 11/11/17 11/11/17 00:31 06:04 06:20 Temperature 97.7 F 98.2 F Pulse Rate 90 86 Respiratory 19 20 Rate Blood Pressure 147/62 152/70 Blood Pressure [Left] O2 Sat by Pulse 99 98 Oximetry 11/11/17 09:04 Temperature 97.6 F Pulse Rate 79 Respiratory 16 Rate Blood Pressure Blood Pressure 156/72 [Left] O2 Sat by Pulse 98 Oximetry - Lab 11/10/17 06:43 11/08/17 07:55 Most recent lab results Calcium 8.1 mg/dL (8.4-10.2) L 11/08/17 07:55
--- NOTE | 2017-11-11 10:01 | Progress Note ---
Assessment and Plan ESRD on HD Malnutrition s/p PEG placement Abnormal ECG MRSA bacteremia KATIA - large irregular mass with mobile components attached to the right atrial catheter tip and abutting the free wall of the right atrium. Mass is measuring 2x2 cm in greatest diameters. Mass is consistent with catheter related vegetation. The tricuspid valve is not involved. s/p removal of infected permacath Anemia Hypertension Conservative cardiac management. Subjective Date of service: 11/11/17 Principal diagnosis: Inability to swallow. S/p PEG Interval history: Patient is non-verbal, resting in bed comfortably. Objective Vital Signs Temp Pulse Resp BP BP Pulse Ox 11/11/17 09:04 97.6 F 79 16 156/72 98 11/11/17 06:20 98.2 F 20 98 11/11/17 06:04 86 152/70 11/11/17 00:31 97.7 F 90 19 147/62 99 11/10/17 22:50 94 H 173/78 11/10/17 22:47 173/78 11/10/17 22:00 20 100 11/10/17 20:51 93 H 20 176/81 100 11/10/17 20:45 98 11/10/17 20:38 98.2 F 11/10/17 19:41 90 11/10/17 16:40 97.9 F 89 18 139/78 100 11/10/17 11:52 98.1 F 90 18 145/63 100 11/10/17 10:00 84 20 100 - Physical Examination General: No Apparent Distress HEENT: Positive: PERRL Cardiac: Positive: Reg Rate and Rhythm Skin: Positive: Clear - Imaging and Cardiology EKG: report reviewed
[2017-11-11] MEDS: APRESOLINE PO SCH ×2 (10:27→17:09)
[2017-11-11] MEDS: COLACE PO SCH (10:29)
[2017-11-11] MEDS: PROTONIX PO SCH (10:29)
[2017-11-11] MEDS: ZESTRIL PO SCH (10:30)
[2017-11-11] MEDS: NORVASC PO SCH (10:30)
[2017-11-11] MEDS: TOPROL XL PO SCH (10:31)
--- NOTE | 2017-11-11 12:12 | Progress Note ---
Assessment and Plan Assessment: 1) Sepsis: better. Etiology most likely bacteremia. CRP=10 2) Complicated MRSA septicemia: source infected HD cath +/- cath associated endocarditis. -KATIA + 2x2 cm mobile echo-density mass attached to cath -Perm Cath was removed on 11/09 -blood cx MRSA positive on 11/07 and 11/09 3) Bilateral mastoiditis 4) Ampho abuse ?? 5) ESRD on HD 6) Previous CVA? Plan: -repeat blood cx since 11/09 one is still positive -ok to place new perm HD cath 72 hours after repeat blood cx from today negative. Do not place perm cath if blood cx still positive -follow-up repeat blood cx -continue vancomycin renally dosed -upon discharge will do vancomycin 1 g IV 3 times a weeks after HD total 6 weeks from 11/09/17 until 12/20/[address] Rodríguez for your consultation, will follow up with you. Bailey Pritchett MD Infectious Diseases Specialist [facility] M [phone] O [phone] Subjective Date of service: 11/11/17 Principal diagnosis: Inability to swallow. S/p PEG Interval history: Non verbal no fever. +chest congestion Microbiology: Blood cultures: 11/07 MRSA 2 of 4 11/09 MRSA 2 of 4 Urine cultures: Current Antimicrobials: vanco 11/09 Previous Antimicrobials: ceftriaxone 11/09 Objective - Exam Narrative Exam: General appearance: Alert in NAD, non verbal Eyes: anicteric sclerae, moist conjunctivae; no lid-lag; PERRLA HENT: Atraumatic; oropharynx clear with moist mucous membranes and no mucosal ulcerations/no oral thrush; normal hard and soft palate. Normal external ears. Neck: Trachea midline; supple, no thyromegaly or lymphadenopathy Lungs: mack rhonchi CV: RRR, + murmurs Abdomen: Soft, non-tender Extremities: No peripheral edema or extremity lymphadenopathy Skin: Normal temperature, turgor and texture; no rash, ulcers or subcutaneous nodules Psych:non verbal Neuro: non verbal Lines - Constitutional Vitals: Vital Signs Temp Pulse Resp BP Pulse Ox 97.6 F 80 16 156/72 98 11/11/17 09:04 11/11/17 10:31 11/11/17 09:04 11/11/17 10:31 11/11/17 09:04 Temperature -Last 24 Hours Temperature 97.6 F Temperature 98.2 F Temperature 97.7 F Temperature 98.2 F Temperature 97.9 F - Labs CBC & Chem 7: 11/10/17 06:43 11/08/17 07:55 Labs: Abnormal lab results 11/10/17 11/10/17 11/10/17 Range/Units 00:04 14:07 21:00 Heparin Anti-Xa Level < 0.30 L (0.3-0.7) U.I./ml POC Glucose 171 H 266 H (70-105) 11/10/17 11/11/17 Range/Units 21:13 05:00 Heparin Anti-Xa Level 0.10 L 0.14 L (0.3-0.7) U.I./ml POC Glucose (70-105)
[2017-11-11] MEDS ORDERED: ADRENALIN ONE (14:30)
[2017-11-11] MEDS ORDERED: ATROPINE 0.1% (CARDIAC) ONE (14:30)
[2017-11-11] MEDS ORDERED: SODIUM BICARBONATE IV ONE (14:30)
--- NOTE | 2017-11-11 15:40 | Event Note ---
Date: 11/11/17 Patient had cardio-resp arreast. Code run as per protocol. She was intubated. However resuscitaion was unsuccessful. She was pronounced at 3:26 pm
--- NOTE | 2017-11-11 15:41 | Death Summary ---
Summary - Providers Date of service: 11/11/17 Consults: 11/08/17 14:54 Consult to Physician [CONS] Routine Consulting Provider: QUINTON THOMAS Reason For Exam: Possible dialysis catheter removal Place consult to:: vascular Notified:: y Time called:: 15:41 11/09/17 07:41 Consult to Physician [CONS] Routine Consulting Provider: BAILEY PEARCE Reason For Exam: right atrial mass to r/o infection/endocarditis Place consult to:: Dr. Randolph Notified:: Nakul RN Phone number called:: Was contact made?: Yes If yes, spoke with:: [employer] Time called:: 08:43 11/10/17 10:53 Consult to Case Management [CONS] Stat Services Needed at Discharge: Other Notified:: transportation specialist Additional Physician Instructions: [facility] Bailey Randolph MD M [phone] O [phone] OUTPATIENT PARENTERAL ANTIBIOTIC THERAPY ORDERS Diagnoses: MRSA endocarditis Antimicrobial administration:vancomycin 1 g IV 3 times a weeks after HD total 6 weeks from 11/09/17 until 12/20/17 Lines: HD access Lab monitoring: CBC, CMP, CRP, vancomycin trough once a week preferly on Tuesday morning. Please fax results to [phone] and call [phone] for critical lab results. Bailey Randolph Date: 11/10/17 11/11/17 08:21 Consult to Wound/ET Nurse [CONS] Urgent Reason For Exam: wound eval 11/02/17 19:57 Consult to Physician [CONS] Routine Consulting Provider: ANIA BROCK Reason For Exam: Abnormal EKG Place consult to:: devante Notified:: yes Was contact made?: Yes If yes, spoke with:: Dr Brock 11/02/17 20:52 Consult to Physician [CONS] Routine Consulting Provider: JOEL ORTEGA Reason For Exam: esrd Place consult to:: answering service Notified:: yes If yes, spoke with:: yoan Time called:: 07:05 Comment:: raman 11/02/17 21:11 Consult to Physician [CONS] Routine Consulting Provider: CONNIE HAY Reason For Exam: poor po intake-peg tube Place consult to:: answering service Notified:: yes Phone number called:: [phone] If yes, spoke with:: cat Time called:: 07:08 Comment:: raman 11/03/17 Consult to Physician [CONS] Routine Consulting Provider: YUDITH MALLOY Reason For Exam: CVA Place consult to:: Dr. Malloy Notified:: Dr. Malloy Phone number called:: [phone] Was contact made?: Yes If yes, spoke with:: Yelena Time called:: 14:30 11/03/17 08:40 Occupational Therapy Evaluate and Treat [CONS] Routine Comment: Reason For Exam: Neuro deficits Physical Therapy Evaluation and Treat [CONS] Routine Comment: Reason For Exam: Neuro deficits 11/03/17 10:13 Speech Therapy Evaluation and Treat [CONS] Routine Reason For Exam: poor appetite, dysphagia? 11/04/17 15:56 Consult to Dietitian/Nutrition [CONS] Routine Physician Instructions: Reason For Exam: Reason for Consult: Write/Manage TPN/PPN 11/05/17 11:12 Consult to Dietitian/Nutrition [CONS] Routine Physician Instructions: Reason For Exam: Reason for Consult: Write/Manage Tube Feeding Attending: PAULY BLACK - summary Date of admission: 11/02/17 20:29 Date of : 11/11/17
--- NOTE | 2017-11-11 15:41 | Death Note ---
Note Date of : 11/11/17 Time of : 15:26 Time Pronounced: 15:
--- NOTE | 2017-11-11 15:42 | Event Note ---
Date: 11/11/17 Responded to the floor for a CODE BLUE. Upon my arrival, patient is pulseless, apneic, receiving bag valve mask ventilation and active CPR as per standard ACLS protocols, supervised by Dr. Augusto Caraballo. Using direct laryngoscopy, Reuben 4 curved blade, a 7.5 endotracheal tube is advanced after obtaining direct visualization of the cords. Patient still receiving CPR. Post intubation is appropriate Color change. Patient receiving bag valve mask ventilation. I also placed a left-sided 18-gauge IV in the external jugular vein, after typical prep of the area. Patient still receiving active CPR when I leave, I will defer further management to the inpatient team. Prognosis is poor. I will defer to the inpatient team to obtain post intubation chest x-ray, if return of spontaneous circulation was obtained, and I will defer to the inpatient team to further manage the patient otherwise post intubation.
[2017-11-11] MEDS ORDERED: VANCOMYCIN/NS 1 GM/250 ML 1 GM/250 ML BAG IV ONE (18:00)
--- NOTE | 2017-11-15 13:30 | Query- Present on Admission ---
Serenity Boyer____Anne Date:___11/15/17 Forest Logistics Manager/CDS: Malika / Mckay Phone#:___[phone] Exercise your independent professional judgment when responding to this query. Questions asked do not imply a particular answer is desired or expected. We greatly appreciate your clarification on this issue. Clinical Documentation States: 67 year old female was admitted on 11/02/17 The H&P (Dr. Couch) states " This is a 67-year-old Afro-Citizen Of [place] female presents to the emergency department via EMS from the dialysis center after the patient became hypotensive and bradycardic while being dialyzed. " The Operative report (Dr. Munson 11/09/17) states " Pre-operative diagnosis: Infected permacath, bacteremia, end-stage renal disease Procedure name(s): Removal of infected permacath " Clinical Findings Show: Based on the above clinical scenario and your knowledge of the patient's case please clarify if the diagnosis stated below was present on admission: Diagnosis: ___Infected Permacath Present on admission : [x ] Yes (Y) [ ] Clinically undeterminable(W) [ ] No(N) Please also document response in your Progress Notes and/or Discharge Summary and indicate if the condition was present on admission. LITAD
--- NOTE | 2017-11-15 13:33 | Query- Present on Admission ---
Deahellen Boyer___mk Date:__11/15/17 Waste Elimination/CDS:____Malika / Mckay Phone#:___[phone]_ Exercise your independent professional judgment when responding to this query. Questions asked do not imply a particular answer is desired or expected. We greatly appreciate your clarification on this issue. Clinical Documentation States: 67 year old female was admitted on 11/02/17 The Infectious disease progress note (Dr. Randolph 11/11/17) states " Assessment: 1) Sepsis: better. Etiology most likely bacteremia. CRP=10 2) Complicated MRSA septicemia: source infected HD cath +/- cath associated endocarditis. -KATIA + 2x2 cm mobile echo-density mass attached to cath -Perm Cath was removed on 11/09 -blood cx MRSA positive on 11/07 and 11/09 " Clinical Findings Show: Based on the above clinical scenario and your knowledge of the patient's case please clarify if the diagnosis stated below was present on admission: Diagnosis: ____Sepsis Present on admission : [x ] Yes (Y) [ ] Clinically undeterminable(W) [ ] No(N) Please also document response in your Progress Notes and/or Discharge Summary and indicate if the condition was present on admission. MTDD
== END 2017-11-11 23:37 | DRG 314 ==
LOC: ED 14:37 → 2B-ACE 20:29 → 4A 11-03 15:23
PROVIDERS: ADMIT Internal Medicine; ATTEND Internal Medicine
PROC: 5A1D70Z Performance of Urinary Filtration, Intermittent, Less than 6 Hours Per Day (ICD-10-PCS; 2017-11-04)
PROC: 0DH63UZ Insertion of Feeding Device into Stomach, Percutaneous Approach (ICD-10-PCS; 2017-11-04)
PROC: 5A1D70Z Performance of Urinary Filtration, Intermittent, Less than 6 Hours Per Day (ICD-10-PCS; 2017-11-07)
PROC: B246ZZ4 Ultrasonography of Right and Left Heart, Transesophageal (ICD-10-PCS; 2017-11-08)
PROC: 05PY33Z Removal of Infusion Device from Upper Vein, Percutaneous Approach (ICD-10-PCS; principal; 2017-11-09)
PROC: 5A1D70Z Performance of Urinary Filtration, Intermittent, Less than 6 Hours Per Day (ICD-10-PCS; 2017-11-09)
DX: T80.211A Bloodstream infection due to central venous catheter, initial encounter (principal); A41.02 Sepsis due to Methicillin resistant Staphylococcus aureus; N18.6 End stage renal disease; I63.9 Cerebral infarction, unspecified; I13.2 Hypertensive heart and chronic kidney disease with heart failure and with stage 5 chronic kidney disease, or end stage renal disease; E46 Unspecified protein-calorie malnutrition; Z68.1 Body mass index [BMI] 19.9 or less, adult; F32.9 Major depressive disorder, single episode, unspecified; J44.9 Chronic obstructive pulmonary disease, unspecified; E78.5 Hyperlipidemia, unspecified; K21.9 Gastro-esophageal reflux disease without esophagitis; K29.70 Gastritis, unspecified, without bleeding; K44.9 Diaphragmatic hernia without obstruction or gangrene; D63.1 Anemia in chronic kidney disease; E11.22 Type 2 diabetes mellitus with diabetic chronic kidney disease; E11.51 Type 2 diabetes mellitus with diabetic peripheral angiopathy without gangrene; H70.93 Unspecified mastoiditis, bilateral; Y92.89 Other specified places as the place of occurrence of the external cause; Z86.73 Personal history of transient ischemic attack (TIA), and cerebral infarction without residual deficits; Z79.899 Other long term (current) drug therapy; Z99.2 Dependence on renal dialysis; Z82.49 Family history of ischemic heart disease and other diseases of the circulatory system; Z89.612 Acquired absence of left leg above knee; Z87.891 Personal history of nicotine dependence; Z88.8 Allergy status to other drugs, medicaments and biological substances
CPT/HCPCS: 36415; 70450; 71010; 80048; 80053; 80061; 80307; 80320; 81001; 82140; 82550; 82553; 82962; 83036; 84443; 84484; 85007; 85014; 85018; 85025; 85049; 85520; 85610; 85730; 86140; 86403; 87040; 87186; 93005; 93010; 93306; 93312; 93320; 93325; 93880; 94760; 95819; 99285; A9270-GY; G0480; G8987-GO; G8988-GO; G8989-GO; G8996-GN; G8997-GN; J0171; J0461; J0690; J0696; J0885; J1644; J2060; J2704; J3370; J7030; J7040